=== PATIENT | female | born 1950 | race Caucasian/White ===

== ENCOUNTER 2018-03-11 12:19 | Emergency (ER) | payer BC, MEDICARE, OTHER ==
--- OUTSIDE RECORDS SUMMARY | 2018-03-11 12:46 | XMS REPORT ---
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 Dave Alberto DO Primary Care Physician Unavailable Payers Type Date Identification Numbers Payment Provider Subscriber Commercial Effective: Policy Number: BS Facets Sulma Palacios 2010 [id number] PayID: [id number] [address] [address] [place] [address] Medigap Part B Policy Number: [id number] Medicare Sulma Palacios PayID: [id number] [address] [place] [address] Commercial Policy Number: [id number] [facility] Sulma Palacios PayID: [id number] [address] [place] [address] Workers Compensation Effective: Policy Number: State Insurance Sulma Martinez 2016 [id number] Genaro Palacios Onset: 2015 Group Number: [id number] [address] [address] Group Name: [id number] [place] [id number] PayID: STATE Workers Compensation Expires: Policy Number: State Insurance Sulma Martinez 2016 [id number] Genaro Palacios Onset: 2015 Group Number: [id number] [address] [address] Group Name: [id number] [place] [id number] PayID: [id number] Problems Date Description Provider Status Onset: 04/12/2014 Chronic ischemic heart disease Rob Pedroza M.D., Active [facility] Onset: 04/27/2015 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 Active AND/OR meniscus of knee Onset: 01/18/2016 Localized, primary osteoarthritis Vida Fuentes M.D. Active Onset: 04/06/2016 Trochanteric bursitis Vida Fuentes M.D. 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 per 01/11/17 visit Daily Caffeine Consumes on average 1 cup of regular coffee per day Exercise Type/Frequency Exercises sporadically Allergies, Adverse Reactions, Alerts Date Description Reaction Status Severity Comments 05/03/2010 No Known Drug Allergy active Medications Medication Date Status Form Strength Qnty SIG Indications Ordering Provider Gabapentin 02/14/ Active Capsules 100mg 180ca 4 pills Rashid Gray ps at night Lupe, for a MD week then 5 pills at night for a week then 6 pills Carbidopa-Levod 04/25/ Active Tablets 25-100mg 270ta 1 by G20 Rashid villafana 2015 bs mouth Lupe, three MD times a day Atorvastatin 04/15/ Active Tablets 40mg 90tab 1 by Rob Stuart Calcium 2014 s mouth Yovany, every day M.D., [facility] Aspirin Adult 04/12/ Active Chewtabs 81mg Takes 1 Rob Stuart Low Strength 2013 po daily Yovany, per M.D., patient [facility] Nitroglycerin 04/12/ Active Solution 0.4mg/Spra 1unit one spray I25.9 Rob Stuart 2013 y s under Yovany, tongue if M.D., chest FACC, pain and FASNC may repeat up to 2 times every 5 minutes. call 911 if chest pain after 3 sprays Metoprolol 01/08/ Active Tablets 50mg 270ta 1 qd Rob Stuart Tartrate 2012 bs Sylvia Pedroza., FACC, FASNC Lantus / Active Solution 100Unit/ML 3vial per Unknown 0000 s sliding scale Apidra / Active Solution 100Unit/ML sliding Unknown 0000 scale Citalopram / Active Tablets 40mg 1 po qd Unknown Hydrobromide 0000 Vitamin B-12 / Active Injection injects Unknown 0000 once a month Acetaminophen / Active Tablets 500mg 1-2 tabs Unknown 0000 3x a day as needed Benadryl / Active Capsules 25mg 1 po Unknown Allergy 0000 daily Melatonin / Active Capsules 10mg 1 tab by Unknown 0000 mouth at bedtime as needed for insomnia Percocet 01/03/ Hx Tablets 5-325mg 90tab 1-2 S83.231A Vida 2015 - s tablets Alfredo, 03/25/ by mouth M.D. 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 do not combine with tylenol [place]keny 07/15/ Hx Tablets 5-325mg 30tab take 1 Taiwo 2015 - s tabs Jerod, 01/23/ every 6 M.D. 2016 hours as needed pain Diclofenac 07/11/ Hx Tablets DR 75mg 90tab 1 by Zaneb Sodium 2016 - s mouth MD Sekou 01/23/ twice a 2015 day [place]y 06/27/ Hx Tablets 5-325mg 30tab 1-2 Monika 2015 tablets Bordoni, 01/23/ by mouth LORENA 2015 every 4-6 hours as needed for pain. Potassium 04/12/ Hx Powder 2 by Robyahir Stuart Bitartrate 2013, 04/09/ every day M.D., 2013 [facility] Aspirin 04/12/ Hx Chewtabs 81mg Robyahir Stuart Children[facility] 2013, M.D., 2013 [facility] Valsartan-[place] 12/07/ Hx Tablets 320-25mg 90tab 1 by Rob Stuart chlorothiazide 2013 mouth Pedroza, 02/25/ day M.D., 2014 [facility] Valsartan/[place] 12/12/ Hx Tablets 320-25mg 90tab 1 po qd Rob Stuart chlorothiazide 2012 Yovany, 12/07/ M.D., 2013 [facility] Atorvastatin 09/29/ Hx Tablets 80mg 90tab 1 by Rob Stuart Calcium 2012 mouth Pedroza, 02/25/ day M.D., 2014 [facility] Potassium 09/29/ Hx Tablets ER 20Meq 180ta 2 tabs by Rob Stuart Chloride ER 2012 mouth Pedroza, 04/09/ day M.D., 2013 [facility] Lipitor 06/05/ Hx Tablets 40mg 90tab 1 po hs Rob Stuart 2011 Yovany, M.D., 2012 [facility] Potassium / Hx Powder 2 by Unknown Bitartrate - mouth 04/09/ every day 2013 Vitamin D / Hx Capsules [id number] 12cap 1 cap po Unknown (Ergocalciferol monthly ) 2016 Gabapentin / Hx Capsules 300mg 1 by Unknown 0000 - mouth in 02/14/ the pm 2018 Medications Administered in Office Medication Date Status Form Strength Qnty SIG Indications Ordering Provider Synvisc Or 04/06/ Administered Injection Vida Synvisc-One 2015 Alfredo, Injection 1 MG M.D. Synvisc Or 03/30/ Administered Injection Vida Synvisc-One 2015 Alfredo, Injection 1 MG M.D. Synvisc Or 03/23/ Administered Injection Vida Synvisc-One 2015 Alfredo, Injection 1 MG M.D. Inj, 12/07/ Administered Injection Ica Regadenoson, 0.1 2015 Nuclear MG Schedule Technetium TC 12/07/ Administered Injection Ica 99M Tetrofosmin, 2015 Nuclear Per Unit Dose Up Schedule To 40 Millicuries Inj, 12/06/ Administered Injection Leoncio D. Regadenoson, 0.1 2015 Brand, MG M.D. Technetium TC 12/06/ Administered Injection Leoncio D. 99M Tetrofosmin, 2015 Brand, Per Unit Dose Up M.D. To 40 Millicuries Technetium TC 12/06/ Administered Injection Sathya S. 99M Tetrofosmin, 2015 Lyle, DO Per Unit Dose Up FACC To 40 Millicuries Triamcinolone 08/25/ Administered Injection Zaneb (Kenalog) 2015 MD Sekou Vital Signs Date Vital Result Comment 02/14/2018 Height 62.5 inches 5'2.50" Weight 238.38 lb Heart Rate 63 /min BP Systolic 110 mmHg BP Diastolic 68 mmHg BMI (Body Mass Index) 42.9 kg/m2 09/11/2017 Height 62.5 inches 5'2.50" Weight 236.50 lb Heart Rate 68 /min BP Systolic 132 mmHg BP Diastolic 82 mmHg BMI (Body Mass Index) 42.6 kg/m2 02/04/2017 Height 62.5 inches 5'2.50" Weight 234.38 lb Heart Rate 80 /min BP Systolic 126 mmHg BP Diastolic 78 mmHg BMI (Body Mass Index) 42.2 kg/m2 01/11/2017 Height 62.5 inches 5'2.50" Weight 241.00 lb Heart Rate 64 /min BP Systolic Sitting 166 mmHg LA Regular Cuff BP Diastolic Sitting 100 mmHg LA Regular Cuff BP Systolic Standing 158 mmHg LA Regular Cuff BP Diastolic Standing 88 mmHg LA Regular Cuff Respiratory Rate 16 /min Pain Level 0 O2 % BldC Oximetry 98 % BMI (Body Mass Index) 43.4 kg/m2 08/06/2016 Height 62.5 inches 5'2.50" Weight 241.00 lb Heart Rate 78 /min BP Systolic Sitting 122 mmHg BP Diastolic Sitting 88 mmHg BMI (Body Mass Index) 43.4 kg/m2 04/25/2016 Height 62.5 inches 5'2.50" Weight 246.00 lb Heart Rate 76 /min BP Systolic Sitting 128 mmHg BP Diastolic Sitting 80 mmHg BMI (Body Mass Index) 44.3 kg/m2 04/06/2016 Height 62.5 inches 5'2.50" Weight 245.00 lb Respiratory Rate 16 /min Pain Level 3 BMI (Body Mass Index) 44.1 kg/m2 03/30/2016 Height 62.5 inches 5'2.50" Weight 245.00 lb Respiratory Rate 16 /min Pain Level 3 BMI (Body Mass Index) 44.1 kg/m2 03/23/2016 Height 62.5 inches 5'2.50" Heart Rate 76 /min Pain Level 4 02/17/2016 Height 62.5 inches 5'2.50" Weight 246.00 lb BMI (Body Mass Index) 44.3 kg/m2 01/18/2016 Height 62.5 inches 5'2.50" Weight 246.00 lb Body Temperature 97.3 F BMI (Body Mass Index) 44.3 kg/m2 01/04/2016 Height 62.5 inches 5'2.50" Weight 246.00 lb Heart Rate 65 /min BP Systolic 157 mmHg BP Diastolic 80 mmHg BMI (Body Mass Index) 44.3 kg/m2 12/30/2015 Height 62.5 inches 5'2.50" Weight 246.00 lb Heart Rate 60 /min BP Systolic Sitting 136 mmHg LA large cuff BP Diastolic Sitting 88 mmHg LA large cuff BP Systolic Standing 130 mmHg LA BP Diastolic Standing 80 mmHg LA Respiratory Rate 14 /min BMI (Body Mass Index) 44.3 kg/m2 Ejection Fraction 50-55% 12/15/15 11/25/2015 Weight 242.00 lb Heart Rate 72 /min BP Systolic Sitting 148 mmHg LA reg cuff BP Diastolic Sitting 92 mmHg LA reg cuff BP Systolic Standing 146 mmHg BP Diastolic Standing 90 mmHg Respiratory Rate 16 /min Ejection Fraction 60% 05/22/14 10/24/2015 Height 62 inches 5'2" Weight 220.00 lb Heart Rate 88 /min BP Systolic 138 mmHg BP Diastolic 90 mmHg BMI (Body Mass Index) 40.2 kg/m2 10/07/2015 Height 62 inches 5'2" Heart Rate 88 /min BP Systolic Sitting 130 mmHg BP Diastolic Sitting 96 mmHg 08/26/2015 Height 62 inches 5'2" Weight 235.00 lb Pain Level 5 BMI (Body Mass Index) 43.0 kg/m2 07/08/2015 Height 62 inches 5'2" Weight 235.00 lb Heart Rate 60 /min BP Systolic Sitting 130 mmHg BP Diastolic Sitting 84 mmHg Pain Level 5 goes higher at times.. BMI (Body Mass Index) 43.0 kg/m2 06/24/2015 Height 62 inches 5'2" Weight 235.00 lb Heart Rate 72 /min BP Systolic Sitting 140 mmHg BP Diastolic Sitting 96 mmHg Pain Level 7 BMI (Body Mass Index) 43.0 kg/m2 04/27/2015 Height 62 inches 5'2" Weight 240.00 lb w/o shoes Heart Rate 62 /min reg BP Systolic Sitting 126 mmHg Rue, lg cuff BP Diastolic Sitting 78 mmHg Rue, lg cuff BP Systolic Standing 124 mmHg Rue BP Diastolic Standing 72 mmHg Rue Respiratory Rate 18 /min BMI (Body Mass Index) 43.9 kg/m2 Ejection Fraction 60% as of 05/22/14 echo 04/12/2014 Height 62 inches 5'2" Weight 231.00 lb with shoes Heart Rate 66 /min BP Systolic Sitting 120 mmHg Ra lg cuff BP Diastolic Sitting 60 mmHg Ra lg cuff BP Systolic Standing 120 mmHg Ra lg cuff BP Diastolic Standing 66 mmHg Ra lg cuff Respiratory Rate 16 /min BMI (Body Mass Index) 42.2 kg/m2 Results Test Date Test Result H/L Range Note Laboratory test finding 04/28/2016 TSH (Thyroid Stim 0.81 mcIU/mL 0.34- 5.60 1 Horm) Vitamin B12 74 pg/mL Low 180-914 2 Folic Acid (Folate) > 20.00 ng/mL >3.99 3 Laboratory test finding 01/05/2016 Point of Care Glucose 100 mg/dL 74- 106 4 Laboratory test finding 01/05/2016 Point of Care Glucose 101 mg/dL 74- 106 5 Laboratory test finding 03/25/2013 Magnesium 1.4 mg/dL Low 1.7-2.6 6 Basic Metabolic Panel 03/25/2013 Sodium 139 mmol/L 133-145 6 Potassium 3.6 mmol/L 3.5-5.0 6 Chloride 103 mmol/L 101-111 6 Co2 Carbon Dioxide 28.0 mmol/L 22-32 6 Anion Gap 8.0 mmol/L 2-11 6 Glucose 267 mg/dL High 70-100 6 Blood Urea Nitrogen 16 mg/dL 6-24 6 Creatinine 1.00 mg/dL 0.50-1.40 6 BUN/Creatinine Ratio 16.0 8-20 6 Calcium 9.2 mg/dL 8.1-9.9 6 Egfr Non- 56.0 >60 6 Egfr 72.0 >60 6, 7 1 Copy Result to: PAR[facility]BIO ([id number]) 2 Normal Range 180 to 914 Indeterminate Range 145 to 180 Deficient Range <145 3 Copy Result to: [facility] ([id number]) 4 Printer'S Assistant: [id number] MAXWELL CARLITA 5 Printer'S Assistant: [id number] KIM MURILLO 6 Triage attached to old triage from January regarding these labs. KN 7 Because ethnic data is not always readily available, this report includes an eGFR for both -Americans and non- Americans. The National Kidney Disease Education Program (NKDEP) does not endorse the use of the MDRD equation for patients that are not between the ages of 18 and 70, are , have extremes of body size, muscle mass, or nutritional status, or are non- or non-. According to the National Kidney Foundation, irrespective of diagnosis, the stage of the disease is based on the level of kidney function: Stage Description GFR(mL/min/1.73 m(2)) 1 Kidney damage with normal or decreased GFR 90 2 Kidney damage with mild decrease in GFR 60-89 3 Moderate decrease in GFR 30-59 4 Severe decrease in GFR 15-29 5 Kidney failure <15 (or dialysis) Procedures Date CPT Code Description Status 01/11/2017 18086 EKG Tracing & Interpretation Completed 12/14/2016 65015 ECHO Transthoracic, Real-Time 2D With Doppler And Color Completed Flow 07/31/2016 82880 Nerve Conduction 05-06 Studies Completed 07/31/2016 99250 Needle Electromyography Complete, Five Or More Muscles Completed Studied 04/06/2016 Inject/Drain Joint/Bursa Major W/O US Completed 03/30/2016 Inject/Drain Joint/Bursa Major W/O US Completed 03/23/2016 Inject/Drain Joint/Bursa Major W/O US Completed 01/05/2016 69613 Arthroscopy,Knee,Meniscectomy Medial Or Lateral Completed 01/05/2016 34762 Arthroscopy,Knee,Meniscectomy Medial Or Lateral Completed 01/05/2016 53816 Arthroscopy,Knee,Meniscectomy Medial Or Lateral Completed 01/05/2016 62073 Arthroscopy,Knee,Meniscectomy Medial Or Lateral Completed 12/15/2015 34955 ECHO Transthoracic, Real-Time 2D With Doppler And Color Completed Flow 12/08/2015 45649 Myocardial Perfusion Imaging Tomographic (Spect) Completed Multiple Studies 12/07/2015 58671 Stress Test Completed 12/07/2015 34950 Myocardial Perfusion Imaging Tomographic (Spect) Completed Multiple Studies 08/26/2015 40563 Inject/Drain Joint/Bursa Major W/O US Completed 08/26/2015 58354 Inject/Drain Joint/Bursa Major W/O US Completed 04/27/2015 78758 EKG Tracing & Interpretation Completed 04/18/2015 36956 Carotid Doppler,Bilateral Completed 03/22/2014 43133 ECHO Transthoracic, Real-Time 2D With Doppler And Color Completed Flow 03/16/2014 45880 Carotid Doppler,Bilateral Completed 05/31/2010 02512 Rad Exam; Wrist Limited, 2 Views Completed 05/19/2010 29416 Rad Exam; Wrist, Comp, Min 3 Views Completed 05/19/2010 74667 Rad Exam; Wrist Limited, 2 Views Completed 05/03/2010 66068 Short Arm Cast Application Completed 09/26/2006 73447 EKG, Interpretation Only Completed 09/26/2006 08537 EKG, Interpretation Only Completed 09/26/2006 57108 Left Heart Catheterization Completed 09/26/2006 80198 Coronary Angiography Completed 09/26/2006 86332 Coronary Angiography Completed 09/26/2006 76502 S/I/R Inj Proc Vent And Or Atrial Completed 09/26/2006 33563 Selective Coronary Angioplasty Completed 09/26/2006 18476 Selective Coronary Angioplasty Completed 09/24/2006 29065 Color Flow Doppler/Interp & Reprt Completed 09/24/2006 15357 Color Flow Doppler/Interp & Reprt Completed 09/24/2006 36200 Pulse Wave/Continuous-Interp.RPT Completed 09/24/2006 47245 Echocardiogram Completed 09/24/2006 00017 Echocardiogram Completed Encounters Type Date Location Provider CPT E/M Dx Office Visit 09/11/2017 1:45p [facility] [place] [address] G20 G47.00 Office Visit 02/04/2017 1:45p [facility] [address] G20 E11.42 Office Visit 01/11/2017 2:00p [facility] Rob Stuart 87168 I25.10 AT Gradyjose m Pedroza M.D., [facility] Office Visit 08/06/2016 4:00p [facility] Rashid Andrade 59258 G20 E11.42 D51.9 Office Visit 04/25/2016 3:00p [facility] [address] E11.42 R25.1 R26.9 Office Visit 12/30/2015 1:45p [facility] Rob Pedroza [address] [facility] AT [place] Fél[place], [facility] Office Visit 11/25/2015 10:45a [facility] Rob Pedroza [address] [facility] AT [place], [facility] Office Visit 10/24/2015 2:00p [facility] Vida Fuentes 15899 S83.231A Wendy Heard M25.561 M25.461 M17.11 Office Visit 10/07/2015 3:00p [facility] [address] S83.231A [facility] Office Visit 08/26/2015 2:30p [facility] [place] [address] [facility] AT [place] S83.231A S83.231A Office Visit 07/08/2015 2:00p [facility] [place] [address] [facility] AT [place] M54.16 M54.5 S63.502A S83.231D S83.231A Office Visit 06/24/2015 8:00a [facility] [place] [address] [facility] AT [place] M54.16 M54.5 S63.502A Office Visit 04/27/2015 1:30p [facility] Rob Pedroza, [address] [facility] Félix, [facility], FASNC Office Visit 04/12/2014 10:30a [facility] Rob Stuart Yovany, [address]9734 414.9 Marin Heard, FAC, FASNC Office Visit 12/12/2012 2:45p [facility] Rob Narciso Pedroza, 68150 414.9 Marin Heard, FACMaren, FASNC Office Visit 05/31/2010 9:30a [facility] M.D. 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 [address] [facility] Plan of Care Future Appointment(s):04/16/2018 9:30 am - Rashid Andrade MD at [facility] Ayrdhj0802/21/2018 2:30 pm - Rob Pedroza M.D., BALJIT, STEPHANIENJ at [facility] AT Zphdtkqd65/07/2018 - Rashid Andrade MDG47.00 Insomnia, unspecifiedComments:Discussed that her walking problems on exam appear to be chiefly due to her neuropathy that is likely from her diabetes - had low b12 but is getting shots. Will send to pt for hopefully useful tips howto cope.Her insomnia is a main complaint and this seems due to her leg paina nd restless and will increae the gabapentin to see if that helps. Wrote to increase gabapentin stepwise and she will call for problems such as drowsinessParkinsons stable and will continue sinemet as is for nowD51.9 Vitamin B12 deficiency anemia, [id number] Parkinson's ghnapkvA09.81 Restless legs iaugthajD76.42 Type 2 diabetes mellitus with diabetic polyneuropathyNew Therapy:Physical Therapy
[2018-03-11 13:10] VITALS: BP 122/97
--- NOTE | 2018-03-11 13:33 | UC ---
Lower Extremity/Ankle HPI - HPI Summary HPI Summary: bilateral leg/ thigh pain x 1 month s/p fall 1 month ago , pain has been getting worse since difficulty walking has been seen multiple times , was diagnosed with diabetic neuropathy not improving with gabapentin or otc pain meds - History of Current Complaint Chief Complaint: UCLowerExtremity Stated Complaint: BILATERAL LEG PAIN Time Seen by Provider: 03/11/18 13:17 Hx Obtained From: Patient, Family/Fraud Examiner Onset/Duration: Gradual Onset, Lasting Weeks - 4 Severity Initially: Moderate Severity Currently: Moderate Pain Intensity: 5 Aggravating Factor(s): Standing, Ambulation Alleviating Factor(s): Nothing Able to Bear Weight: Yes - with the use of walker - Allergies/Home Medications Allergies/Adverse Reactions: Allergies Allergy/AdvReac Type Severity Reaction Status Date / Time No Known Allergies Allergy Verified 03/11/18 13:10 Home Medications: Home Medications Metoprolol Succinate XL TAB* [Toprol XL TAB*] 25 mg PO DAILY 03/11/18 [History Confirmed 03/11/18] PMH/Surg Hx/FS Hx/Imm Hx - Additional Past Medical History Additional PMH: parkinsons Endocrine History: Diabetes Cardiovascular History: Cardiac Disease, Hypertension - Surgical History Surgical History: Yes Surgery Procedure, Year, and Place: GALLBLADDER; CARDIAC STENTS TAXUS EXPRESS UP TO 700G/CM OK FOR UP TO 3T PT WILL BRING CARD TO SCAN INTO COMPUTER; LEFT BREAST TERMINAL DUCT EXCISION @ [facility] [place]; RT KNEE SCOPE FOR MENISCUS REPAIR - Family History Known Family History: Positive: None - Social History Alcohol Use: None Substance Use Type: None Smoking Status (MU): Never Smoked Tobacco Have You Smoked in the Last Year: No Review of Systems Constitutional: Negative Skin: Negative Eyes: Negative ENT: Negative Respiratory: Negative Is Patient Immunocompromised?: No All Other Systems Reviewed And Are Negative: Yes Physical Exam Triage Information Reviewed: Yes Appearance: Pain Distress, Obese Vital Signs: Initial Vital Signs Temp 98 F 03/11/18 12:53 Pulse 72 03/11/18 12:53 Resp 16 03/11/18 12:53 BP 122/97 03/11/18 12:53 Pulse Ox 100 03/11/18 12:53 Vital Signs Reviewed: Yes Eyes: Positive: Conjunctiva Clear ENT: Positive: Normal ENT inspection, Hearing grossly normal, Pharynx normal Neck exam: Normal Neck: Positive: Supple, Nontender, No Lymphadenopathy Respiratory: Positive: Chest non-tender, Lungs clear, Normal breath sounds Cardiovascular: Positive: RRR, No Murmur, Pulses Normal Musculoskeletal: Positive: ROM Intact, No Edema, Other: - lower ext: diffuse tenderness of bilateral thighs no swelling , no erythema, Skin Exam: Normal Lower Extremity Course/Dx - Differential Dx/Diagnosis Provider Diagnoses: bilateral thigh pain Discharge - Sign-Out/Discharge Documenting (check all that apply): Patient Departure All imaging exams completed and their final reports reviewed: No Studies - Discharge Plan Condition: Stable Disposition: HOME Prescriptions: Tramadol HCl [Ultram] 50 mg PO Q8H PRN #30 tablet MDD 3 tabs PRN Reason: Pain Patient Education Materials: Peripheral Neuropathy (ED), Leg Pain (ED) Forms: *Work Release Referrals: Joanne Suggs MD [Primary Care Provider] - 7 Days - Billing Disposition and Condition Condition: STABLE Disposition: Home
== END 2018-03-11 13:48 | disposition home or self-care (01) ==
LOC: UCCORT 12:19
DX: M79.652 Pain in left thigh (principal); M79.651 Pain in right thigh; I10 Essential (primary) hypertension
CPT/HCPCS: 99212; G0463

== ENCOUNTER 2018-04-03 09:00 | Inpatient (IN) | payer BC, MEDICARE, OTHER ==
[2018-04-03] MEDS ORDERED: traMADol TAB* 50 MG PO ONE (09:25)
[2018-04-03] MEDS ORDERED: Ondansetron ODT TAB* 4 MG SL ONE (09:26)
--- OUTSIDE RECORDS SUMMARY | 2018-04-03 09:36 | XMS REPORT ---
:1950 External Reference #:[id number] Author Organization [employer] Address [address] [place] [phone] Phone [phone] Care Team Providers Name Role Phone Dave Alberto DO Care Team Information Internal Communications Manager Unavailable Dave Alberto DO Primary Care Physician Unavailable Payers Type Date Identification Numbers Payment Provider Subscriber Commercial Effective: Policy Number: BS Facets Sulma Palacios 2010 [id number] PayID: [id number] [address] [address] [place] [address] Medigap Part B Policy Number: [id number] Medicare Sulma Palacios PayID: [id number] [address] [place] [address] Commercial Policy Number: [id number] [facility] Sulma Palacios PayID: [id number] [address] [place] [address] Workers Compensation Effective: Policy Number: State Insurance Sulam Martinez [id number] Genaro Palacios Onset: 2015 Group Number: [id number] [address] [address] Group Name: [id number] [place] [id number] PayID: STATE Workers Compensation Expires: Policy Number: State Insurance Sulma Martinez [id number] Genaro Palacios Onset: 2015 Group Number: [id number] [address] [address] Group Name: [id number] [place] [id number] [place]ID: [id number] Problems Date Description Provider Status Onset: 04/12/2014 Chronic ischemic heart disease Rob Perdoza M.D., Active [facility] Onset: 04/27/2015 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., Active coronary artery w/o ang pctrs [facility] Onset: 10/24/2015 Current tear of medial cartilage [...] Cobalamin deficiency Rashid Andrade MD Active Onset: 03/31/2018 Abnormal gait Rashid Andrade MD Active Onset: 02/14/2018 Insomnia Rashid Andrade MD Active Social History Type Date Description Comments Marital Status Occupation Currently Working 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 MD Lupe Carbidopa-Levod 04/25/ Active Tablets 25-100mg 270ta 1 by G20 Rashid opa 2015 bs mouth Lupe three MD times a day Atorvastatin 04/15/ Active Tablets 40mg 30tab 1 by Rob Stuart Calcium 2014 s mouth Yovany, every day M.DCiro, [facility] Aspirin Adult 04/12/ Active Chewtabs 81mg Takes 1 Rob Stuart Low Strength 2013 po daily Pedroza, per M.D., patient [facility] Nitroglycerin 04/12/ Active Solution 0.4mg/Spra 1unit one [...] Unknown 0000 3x a day as needed Melatonin / Active Capsules 10mg 1 tab by Unknown 0000 mouth at bedtime as needed for insomnia Percocet 01/03/ Hx Tablets 5-325mg 90tab 1-2 S83.231A Vida 2015 - s tablets Alfredo, 03/25/ by mouth M.D. 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 Aspirin 01/03/ Hx Tablets 325mg 20tab one by [id number] Frank 2015 - s mouth Bordoni, 01/23/ twice a [employer] 2015 day for 10 days to prevent blood clots Percocet 10/06/ Hx Tablets 5-325mg 30tab take 1 S83.231A Levy 2016 - s tabs as MD Sekou 04/25/ needed 2015 for pain every day. do not combine with tylenol [place] 07/15/ Hx Tablets 5-325mg 30tab take 1 Taiwo 2015 - s tabs Jerod, 01/23/ every 6 M.D. 2016 hours as needed pain Diclofenac 07/11/ Hx Tablets DR 75mg 90tab 1 by Levy Coy 2015 - s mouth MD Sekou 08/16/ twice a 2015 day [place] 06/27/ Hx Tablets 5-325mg 30tab 1-2 Monika 2015 - s tablets Bordoni, 01/23/ by mouth [employer] 2015 every 4-6 hours as needed for pain. Potassium 04/12/ Hx Powder 2 by Rob Narciso Bitartrate 2013 mouth Pedroza, 04/09/ every day M.D., 2013 [facility] Aspirin 04/12/ Hx Chewtabs 81mg Rob Stuart Childrens 2013, M.D., 2013 [facility] Valsartan-[place] 12/07/ Hx Tablets 320-25mg 90tab 1 by Robyahir Stuart chlorothiazide 2013 mouth Pedroza, 02/25/ day M.D., 2014 [facility] Valsartan/[place] 12/12/ Hx Tablets 320-25mg 90tab 1 po qd Rob Stuart chlorothiazide 2012 Yovany, 12/07/ M.D., 2013 [facility] Atorvastatin 09/29/ Hx Tablets 80mg 90tab 1 by Rob Stuart Calcium 2012 mouth Pedroza, 02/25/ every day M.D., 2014 [facility] Potassium 09/29/ Hx Tablets ER 20Meq 180ta 2 tabs by Rob Stuart Chloride ER 2012 mouth Pedroza, 04/09/ day M.D., 2013 [facility] Lipitor 06/05/ Hx Tablets 40mg 90tab 1 po hs Rob Stuart 2011 Yovany, M.D., 2012 [facility] Potassium / Hx Powder 2 by Unknown Bitartrate 0000 - mouth 04/09/ every day 2013 Vitamin D / Hx Capsules [id number] 12cap 1 cap po Unknown (Ergocalciferol 0000 - s monthly ) 2016 Benadryl / Hx Capsules 25mg 1 po Unknown Allergy 0000 - daily 2016 Gabapentin / Hx Capsules 300mg 1 [...] Injection Sathya S. 99M Tetrofosmin, 2015 Lyle, Per Unit Dose Up FACC To 40 Millicuries Triamcinolone 08/25/ Administered Injection Zaneb (Kenalog) 2015 MD Sekou Vital Signs Date Vital Result Comment 03/31/2018 Height 62.5 inches 5'2.50" Weight 231.00 lb Heart Rate 88 /min BP Systolic Sitting 130 mmHg BP Diastolic Sitting 88 mmHg BMI (Body Mass Index) 41.6 kg/m2 02/14/2018 Height 62.5 inches 5'2.50" Weight 238.38 [...] 7 1 Copy Result to: [facility] ([id number]) 2 Normal Range 180 to 914 Indeterminate Range 145 to 180 Deficient Range <145 3 Copy Result to: [facility]BIO ([id number]) 4 Geothermal Operating Engineer: [id number] HANS ZAZUETA 5 Geothermal Operating Engineer: [id number] KIM MURILLO 6 Triage attached to old [...] Procedures Date CPT Code Description Status 01/11/2017 78617 EKG Tracing & Interpretation Completed 12/14/2016 84195 ECHO Transthoracic, Real-Time 2D With Doppler And Color Completed Flow 07/31/2016 25423 Nerve Conduction 05-06 Studies Completed 07/31/2016 12225 Needle Electromyography Complete, Five Or More Muscles Completed Studied 04/06/2016 84917 Inject/Drain Joint/Bursa Major W/O US Completed 03/30/201696181 Inject/Drain Joint/Bursa Major W/O US Completed 03/23/201629336 Inject/Drain Joint/Bursa Major W/O US Completed 01/05/2016 11877 Arthroscopy,Knee,Meniscectomy Medial Or Lateral Completed 01/05/2016 44826 Arthroscopy,Knee,Meniscectomy Medial Or Lateral Completed 01/05/2016 44787 Arthroscopy,Knee,Meniscectomy Medial Or Lateral Completed 01/05/2016 81955 Arthroscopy,Knee,Meniscectomy Medial Or Lateral Completed 12/15/2015 81937 ECHO Transthoracic, Real-Time 2D With Doppler And Color Completed Flow 12/08/2015 35252 Myocardial Perfusion Imaging Tomographic (Spect) Completed Multiple Studies 12/07/2015 31746 Stress Test Completed 12/07/2015 33874 Myocardial Perfusion Imaging Tomographic (Spect) Completed Multiple Studies 08/26/201520808 Inject/Drain Joint/Bursa Major W/O US Completed 08/26/201530611 Inject/Drain Joint/Bursa Major W/O US Completed 04/27/2015 71877 EKG Tracing & Interpretation Completed 04/18/2015 10856 Carotid Doppler,Bilateral Completed 03/22/2014 87564 ECHO Transthoracic, Real-Time 2D With Doppler And Color Completed Flow 03/16/2014 00260 Carotid Doppler,Bilateral Completed 05/31/2010 20402 Rad Exam; Wrist Limited, 2 Views Completed 05/19/2010 14289 Rad Exam; Wrist, Comp, Min 3 Views Completed 05/19/2010 91108 Rad Exam; Wrist Limited, 2 Views Completed 05/03/2010 25712 Short Arm Cast Application Completed 09/26/2006 49375 EKG, Interpretation Only Completed 09/26/2006 29555 EKG, Interpretation Only Completed 09/26/2006 69082 Left Heart Catheterization Completed 09/26/2006 90449 Coronary Angiography Completed 09/26/2006 77036 Coronary Angiography Completed 09/26/2006 01086 S/I/R Inj Proc Vent And Or Atrial Completed 09/26/2006 64143 Selective Coronary Angioplasty Completed 09/26/2006 61136 Selective Coronary Angioplasty Completed 09/24/2006 28830 Color Flow Doppler/Interp & Reprt Completed 09/24/2006 14755 Color Flow Doppler/Interp & Reprt Completed 09/24/2006 76621 Pulse Wave/Continuous-Interp.RPT Completed 09/24/2006 14963 Echocardiogram Completed 09/24/2006 01651 Echocardiogram Completed Encounters Type Date Location Provider CPT E/M Dx Office Visit 02/14/2018 [facility] [address] G47.00 11:00a D51.9 G20 G25.81 E11.42 Office Visit 09/11/2017 1:45p [facility] [address] G20 G47.00 Office Visit 02/04/2017 1:45p [facility] [address] G20 E11.42 Office Visit 01/11/2017 2:00p [facility] Rob Stuart 12841 I25.10 AT Grady Pedroza M.D., [facility] Office Visit 08/06/2016 4:00p [facility] Rashid Andrade 69886 G20 MD E11.42 D51.9 Office Visit 04/25/2016 3:00p [facility] [address] E11.42 R25.1 R26.9 Office Visit 12/30/2015 1:45p [facility] Rob Pedroza 16947 I25.10 [facility] [place] [facility] Office Visit 11/25/2015 10:45a [facility] Rob Pedroza, 08971 I25.10 [facility] AT [place] Félix, [facility] Office Visit 10/24/2015 2:00p [facility] [place] 32083 S83.231A Wendy Heard M25.561 M25.461 M17.11 Office Visit 10/07/2015 3:00p [facility] [address] S83.231A [facility] AT [place] Office Visit 08/26/2015 2:30p [facility] [address] S83.231A [facility] AT [place] S83.231A S83.231A Office Visit 07/08/2015 2:00p [facility] [address] S83.231A [facility] AT [place] M54.16 M54.5 S63.502A S83.231D S83.231A Office Visit 06/24/2015 8:00a [facility] [address] S80.01xA [facility] AT [place] M54.16 M54.5 S63.502A Office Visit 04/27/2015 1:30p [facility] Rob Stuart Pedroza, 24484 I25.10 Marin Heard, FAC, FASHI Office Visit 04/12/2014 10:30a [facility] Rob Stuart Pedroza, 34694 414.9 Marin Heard, FAC, FASHI Office Visit 12/12/2012 2:45p [facility] Rob Narciso Pedroza, 69337 414.9 Marin Heard, [facility] Office Visit 05/31/2010 9:30a [facility] [place]gs M.D. 98716 813.42 [facility] Office Visit 05/19/2010 8:30a [facility] M.D. 12302 813.42 [facility] Office Visit 05/03/2010 1:30p [facility] M.D. 79303 813.42 [facility] Plan of Care Future Appointment(s):04/01/2018 2:15 pm - Rob Pedroza M.D., [facility] at [facility]03/31/2018 - Rashid Andrade MDG20 Parkinson's cktcbulV01.42 Type 2 diabetes mellitus with diabetic jaqgmziukboszuM61.89 Other abnormalities of gait and mobilityNew Xrays:MRI Lumbar Spine W/ONew Orders:EMG w /Nerve Conduct Study, LowerComments:Her major problem now is probably neuropathy but given worsening will check lumbar mri to make sure does not have lumbar stenosis and will recheck emg given changes. Needs to continue working with pt and get more effective strategy regarding what cane or walker to use. Needs to wear more practical shoes.Follow up:5 to 6 weeks
--- NOTE | 2018-04-03 10:00 | RAD ---
Indication: Fall, head injury. CT of the cervical spine was obtained in the axial plane. Sagittal and coronal reconstructed images were obtained. The skull base demonstrates no evidence of fracture. The C1 ring is intact. Degenerative changes of the atlantoaxial joint is noted. At C2-C3 there is no disc protrusion. No central foraminal stenosis is noted. At C3-C4 spondylitic ridge is noted. No focal protrusion is noted. No central foraminal stenosis is noted. At C4-C5 there is no evidence of fracture. Spondylitic ridge is noted. No central or foraminal stenosis is noted. At C5-C6, C6-C7 and C7-T1 no fracture is identified. IMPRESSION: No fracture of the cervical spine is noted. Degenerative disc disease at C3-C4 and C4-C5 is noted.
--- NOTE | 2018-04-03 10:01 | RAD ---
Indication: Fall, head injury. CT of the brain performed without IV contrast. Ventricular structures are midline. No midline shift is noted. The extra-axial spaces are unremarkable. There is no evidence of intracranial mass or hemorrhage. No other high or low density lesions are identified. Mastoid air cells and paranasal sinuses are otherwise unremarkable. IMPRESSION: No intracranial mass or hemorrhage is noted.
--- NOTE | 2018-04-03 10:08 | RAD ---
INDICATION: Trauma, fall. COMPARISON: Comparison is made with a prior CT of the abdomen and pelvis from June 19, 2007. TECHNIQUE: Contiguous axial sections were obtained through the pelvis without intravenous or oral contrast. Images were reconstructed in the coronal and sagittal planes. FINDINGS: PELVIC BONES: The bones are in normal alignment. No fracture is seen. There is mild to moderate bilateral osteoarthritic change in the hips. BOWEL: The visualized portion of the small bowel and colon appear nondistended. LYMPH NODES: No significant enlarged pelvic or inguinal lymph nodes are seen. PERITONEUM: No free intraperitoneal air or fluid is seen. IMPRESSION: NO EVIDENCE FOR FRACTURE.
--- NOTE | 2018-04-03 10:13 | RAD ---
HISTORY: fall back pain COMPARISONS: None TECHNIQUE: Multiple contiguous axial CT scans were obtained of the thoracic and lumbar spine without intravenous contrast, with coronal and sagittal multiplanar reformations. FINDINGS: SPINAL CANAL: Evaluation of the central canal is limited on CT technique; however, there is no obvious canalicular mass or epidural hemorrhage. ALIGNMENT: The alignment is normal. VERTEBRAL BODIES: There is diffuse osteopenia. There is ossification of the anterior syndesmophytes. There is a nondisplaced fracture through the anterior syndesmophytes at T7-T8 extending through the anterior column of T8 along the superior endplate. There is no appreciable extension to the middle or posterior columns. This is best seen on sagittal images 2122. There is chronic appearing fracture of the right L3 transverse process. JOINTS: There is diffuse facet osteoarthritis and mild diffuse costovertebral osteoarthritis. MUSCULATURE: Unremarkable INTERVERTEBRAL DISCS: There is diffuse loss of intervertebral disc height throughout the spine. AXIAL IMAGES: On axial images, there is severe narrowing of central canal at L3-L4 at L4-L5 secondary to broad-based disc bulge and ligamentous and facet hypertrophy. There is moderate neuroforaminal narrowing at L3-L4, L4-L5, and L5-S1 SOFT TISSUES: The visualized soft tissues of the chest and abdomen are unremarkable. OTHER: None IMPRESSION: 1. OSSIFICATION OF THE ANTERIOR SYNDESMOPHYTES SUGGESTIVE OF ANKYLOSING SPONDYLITIS. 2. THERE IS A NONDISPLACED FRACTURE THROUGH THE ANTERIOR SYNDESMOPHYTES AT T7-T8 WITH EXTENSION THROUGH THE ANTERIOR COLUMN OF T8 ALONG THE SUPERIOR ENDPLATE. THERE IS NO APPRECIABLE EXTENSION INTO THE MIDDLE OR POSTERIOR COLUMNS. 3. DIFFUSE OSTEOPENIA. 4. CHRONIC APPEARING FRACTURE OF THE RIGHT L3 TRANSVERSE PROCESS. 5. DEGENERATIVE DISC DISEASE AND OSTEOARTHRITIS. 6. THERE IS SEVERE NARROWING OF CENTRAL CANAL AT L3-L4 AND L4-L5. 7. THERE IS MULTILEVEL NEURAL FORAMINAL NARROWING DESCRIBED ABOVE. PRELIMINARY FINDINGS WERE DISCUSSED WITH DR. DOE IN THE EMERGENCY DEPARTMENT AT APPROXIMATELY 10:08 AM ON APRIL 03, 2018 .
--- NOTE | 2018-04-03 10:44 | ED ---
Back Pain - HPI Summary HPI Summary: A 67 y/o female presents to the ED c/o back pain since this morning when she fell. She has a walker because of her Parkinsons. She would not be allowed at her work unless someone assisted her inside. The patient hit a bump and flipped over her handlebars hitting her head and back. The pain is in her thoracic and lumbar region. She denies abd pain, neck pain or syncope. She also c/o LEIGH. She has a Hx of a ruptured disc and kidney stones. She denies being on blood thinners. - History of Current Complaint Chief Complaint: EDBackInjuryPain Stated Complaint: FELL HEAD LAC Time Seen by Provider: 04/03/18 09:03 Hx Obtained From: Patient Onset/Duration: Sudden Onset, Lasting Hours, Still Present Onset/Duration: Started Hours Ago Timing: Constant Severity Currently: Moderate Pain Intensity: 7 Pain Scale Used: 0-10 Numeric - Allergies/Home Medications Allergies/Adverse Reactions: Allergies Allergy/AdvReac Type Severity Reaction Status Date / Time No Known Allergies Allergy Verified 03/11/18 13:10 Home Medications: Home Medications Acetaminophen/Diphenhydramine [Tylenol Pm Ex-Strength Caplet] 1 tab PO BEDTIME 04/03/18 [History Confirmed 04/03/18] Atorvastatin* [Lipitor*] 40 mg PO DAILY 04/03/18 [History Confirmed 04/03/18] Carbidopa/Levodop 25/100 MG(*) [Sinemet 25/100 TAB(*)] 1 tab PO TID 04/03/18 [ History Confirmed 04/03/18] Citalopram TAB* [CeleXA TAB*] 40 mg PO DAILY 04/03/18 [History Confirmed ] Cyanocobalamin INJ * [Vitamin B12 INJ *] 1,000 mcg IM Q30D 04/03/18 [History Confirmed 04/03/18] Gabapentin CAP(*) [Neurontin 300 CAP(*)] 300 mg PO TID 04/03/18 [History Confirmed 04/03/18] Insulin Glulisine [Apidra Solostar] 0.1 - 0.2 ml INJ TID 04/03/18 [History Confirmed 04/03/18] Melatonin (NF) 3 mg PO BEDTIME PRN 04/03/18 [History Confirmed 04/03/18] Metoprolol Succinate XL TAB* [Toprol XL TAB*] 50 mg PO DAILY 04/03/18 [History Confirmed 04/03/18] hydrOXYzine HCL TAB* [Atarax 10 MG TAB*] 10 - 20 mg PO BEDTIME PRN 04/03/18 [ History Confirmed 04/03/18] traMADol TAB* [Ultram*] 50 mg PO BID PRN 04/03/18 [History Confirmed 04/03/18] PMH/Surg Hx/FS Hx/Imm Hx Endocrine/Hematology History: Reports: Hx Diabetes - type 2, uses insulin Denies: Hx Thyroid Disease Cardiovascular History: Reports: Hx Coronary Artery Disease, Hx Hypertension, Other Cardiovascular Problems/Disorders - 2006 & 2007 3 STENTS, [facility] YAN[facility]. DEEDEE'T 12/30/15 Denies: Hx Pacemaker/ICD Respiratory History: Reports: Hx Pulmonary Edema - 2006 Denies: Hx Asthma, Hx Chronic Obstructive Pulmonary Disease (COPD) GI History: Denies: Hx Ulcer History: Denies: Hx Dialysis, Hx Renal Disease Musculoskeletal History: Reports: Hx Arthritis - MANY JOINTS Sensory History: Reports: Hx Cataracts - BILATERAL, Hx Contacts or Glasses - GLASSES Denies: Hx Hearing Aid Opthamlomology History: Reports: Hx Cataracts - BILATERAL, Hx Contacts or Glasses - GLASSES Neurological History: Reports: Hx Migraine - hX of, none in recent years, Other Neuro Impairments/Disorders - occassional tremors, rt side, thinks r/t diabetic Psychiatric History: Reports: Hx Anxiety - on daily meds, Hx Depression Denies: Hx Panic Disorder - Surgical History Surgery Procedure, Year, and Place: GALLBLADDER; CARDIAC STENTS x2, LEFT BREAST TERMINAL [place] [facility] [place]; RT KNEE SCOPE FOR MENISCUS REPAIR. TAXUS EXPRESS UP TO 700G/CM OK FOR UP TO 3T PT WILL BRING CARD TO SCAN INTO COMPUTER; Hx Anesthesia Reactions: No Infectious Disease History: No Infectious Disease History: Denies: Hx Hepatitis, Hx Human Immunodeficiency Virus (HIV), History Other Infectious Disease, Traveled Outside the [place] in Last 30 Days - Family History Known Family History: Negative: Cardiac Disease, Hypertension, Diabetes - Social History Alcohol Use: None Substance Use Type: Reports: None Smoking Status (MU): Never Smoked Tobacco Have You Smoked in the Last Year: No Review of Systems Negative: Fever Negative: Abdominal Pain Positive: Myalgia - Back pain Positive: Headache. Negative: Syncope All Other Systems Reviewed And Are Negative: Yes Physical Exam - Summary Physical Exam Summary: GENERAL: Patient is a well-developed and nourished female who is lying comfortable in the stretcher. Patient is not in any acute respiratory distress. HEAD AND FACE: Normocephalic EYES: PERRLA, EOMI x 2. EARS: Hearing grossly intact. MOUTH: Oropharynx within normal limits. NECK: Supple, trachea is midline, no adenopathy, no JVD, no carotid bruit. CHEST: Symmetric, no tenderness at palpation LUNGS: Clear to auscultation bilaterally. No wheezing or crackles. CVS: Regular rate and rhythm, S1 and S2 present, no murmurs or gallops appreciated. ABDOMEN: Bowel sounds are normal. No abdominal abnormal pulsations. EXTREMITIES: TTP in T-spine, L-spine and right lateral pelvis bone, no edema, no cyanosis or clubbing. NEURO: Alert and oriented x 3. No acute neurological deficits. Speech is normal and follows commands. SKIN: Dry and warm Triage Information Reviewed: Yes Vital Signs On Initial Exam: Initial Vitals Temp Pulse Resp BP Pulse Ox 97.7 F 68 22 170/64 96 04/03/18 09:03 04/03/18 09:03 04/03/18 09:03 04/03/18 09:03 04/03/18 09:03 Vital Signs Reviewed: Yes Diagnostics - Vital Signs Vital Signs Temp Pulse Resp BP Pulse Ox 04/03/18 09:03 97.7 F 68 22 170/64 96 - Laboratory Lab Results: Lab Results 04/03/18 Range/Units 09:13 POC Glucose (mg/dL) 131 H (70-100) mg/dL Result Diagrams: 04/04/18 04:56 04/04/18 04:56 Lab Statement: Any lab studies that have been ordered have been reviewed, and results considered in the medical decision making process. - CT Brain CT Interpretation Completed By: Radiologist Summary of CT Findings: No intracranial mass or hemorrhage is noted. This report has been reviewed by the ED physician. Pelvis CT Interpretation Completed By: Radiologist Summary of CT Findings: No evidence of fracture. This report has been reviewed by the ED physician. Thoracic spine CT Interpretation Completed By: Radiologist - 1. OSSIFICATION OF THE ANTERIOR SYNDESMOPHYTES SUGGESTIVE OF ANKYLOSING SPONDYLITIS. 2. THERE IS A NONDISPLACED FRACTURE THROUGH THE ANTERIOR SYNDESMOPHYTES AT T7-T8 WITH EXTENSION THROUGH THE ANTERIOR COLUMN OF T8 ALONG THE SUPERIOR ENDPLATE. THERE IS NO APPRECIABLE EXTENSION INTO THE MIDDLE OR POSTERIOR COLUMNS. 3. DIFFUSE OSTEOPENIA. 4. CHRONIC APPEARING FRACTURE OF THE RIGHT L3 TRANSVERSE PROCESS. 5. DEGENERATIVE DISC DISEASE AND OSTEOARTHRITIS. 6. THERE IS SEVERE NARROWING OF CENTRAL CANAL AT L3-L4 AND L4-L5. 7. THERE IS MULTILEVEL NEURAL FORAMINAL NARROWING DESCRIBED ABOVE. This report has been reviewed by the ED physician. Lumbar spine CT Interpretation Completed By: Radiologist - 1. OSSIFICATION OF THE ANTERIOR SYNDESMOPHYTES SUGGESTIVE OF ANKYLOSING SPONDYLITIS. 2. THERE IS A NONDISPLACED FRACTURE THROUGH THE ANTERIOR SYNDESMOPHYTES AT T7-T8 WITH EXTENSION THROUGH THE ANTERIOR COLUMN OF T8 ALONG THE SUPERIOR ENDPLATE. THERE IS NO APPRECIABLE EXTENSION INTO THE MIDDLE OR POSTERIOR COLUMNS. 3. DIFFUSE OSTEOPENIA. 4. CHRONIC APPEARING FRACTURE OF THE RIGHT L3 TRANSVERSE PROCESS. 5. DEGENERATIVE DISC DISEASE AND OSTEOARTHRITIS. 6. THERE IS SEVERE NARROWING OF CENTRAL CANAL AT L3-L4 AND L4-L5. 7. THERE IS MULTILEVEL NEURAL FORAMINAL NARROWING DESCRIBED ABOVE. This report has been reviewed by the ED physician. Cervical spine CT Interpretation Completed By: Radiologist - IMPRESSION: No fracture of the cervical spine is noted. Degenerative disc disease at C3-C4 and C4-C5 is noted. This report has been reviewed by the ED physician. - Additional Comments Diagnostic Additional Comments: Thoracic spine MRI: No bone marrow edema is noted. Defect in the anterior syndesmophyte at T7-T8 consistent with the previously identified fracture on CT scan. No evidence of vertebral body edema is noted. No epidural hematoma is noted. This report has been reviewed by the ED physician. cervical spine MRI: No fracture of the cervical spine is noted. This report has been reviewed by the ED physician. Re-Evaluation - Re-Evaluation First Eval Re-Evaluation Time: 10:50 Change: Unchanged Comment: Received additional Hx from pt Back Pain Course/Dx - Course Course Of Treatment: A 67 y/o female presents to the ED c/o head and back pain since this morning when she fell and landed on the sidewalk. CT scan of the head , C-T-L spine were obtained and showed fracture in T7-T8. I consulted neurosuregery who came and saw patient at bedside and recommended MRI of the C- T spine. MRI spine showed similar findings to CT scan. Patient was once again seen at the bedside by NS and recommended admission for pain control and TLSO back brace. Case discussed with hospitalits. - Diagnoses Provider Diagnoses: Thoracic spine fracture Discharge - Sign-Out/Discharge Documenting (check all that apply): Patient Departure - Admit - Discharge Plan Condition: Stable Disposition: ADMITTED TO [facility] - Billing Disposition and Condition Condition: STABLE Disposition: Admitted to [facility] - Attestation Statements Document Initiated by Scribe: Yes Documenting Scribe: Aleksandr Munson Provider For Whom Scribe is Documenting (Include Credential): Jessie Caldera MD Scribe Attestation: IAleksandr, scribed for Jessie Caldera MD on 04/04/18 at 1449. Scribe Documentation Reviewed: Yes Provider Attestation: The documentation as recorded by the scribeAleksandr accurately reflects the service I personally performed and the decisions made by , Raj Caldera MD Consult Consult: At 1052 spoke to GAVI Keith, for Dr. Grace, neurosurgery. is in surgery. She will pull images and have review. At 1058 spoke with Inna, is finishing surgery, will review images, keep patient NPO. At 1230 Dr. Grace at bedside, recommends MRI and putting the patient in a [place] J collar. At 14:49 Dr. Andrade, hospitalist, will admit pt for observation because MRI cannot be scheduled until 20:00. Pt taken to MRI due to unexpected cancellation, will not be admitted at this time. At [address] Grace, waiting for radiologist to take 2nd look for tiny L-spine fracture before deciding dispo. Will call back. At [address] Grace, recommends admit for observation for one day At [address] Lin, hospitalist, will admit patient
[2018-04-03 11:03] LABS: ABS Basophils 0 10^3/ul (0-0.2); ABS Eosinophils 0.1 10^3/ul (0-0.6); ABS Lymphocytes 0.9 10^3/ul (1.0-4.8); ABS Monocytes 0.3 10^3/ul (0-0.8); ABS Neutrophils 2.6 10^3/ul (1.5-7.7); ABS Nucleated RBC 0 10^3/ul; Eosinophil % 3.8 % (0-6); Hematocrit 34 % (35-47); Hemoglobin 11.2 g/dl (12.0-16.0); Lymphocyte % 22.5 % (25-47); Mean Corpuscular HGB Conc 33 g/dl (31-36); Mean Corpuscular Hemoglobin 26 pg (27-31); Mean Corpuscular Volume 78 fL (80-97); Mean Platelet Volume 8.1 um3 (7.4-10.4); Nucleated Red Blood Cells % 0; Platelet Count 120 10^3/ul (150-450); Red Blood Count 4.33 10^6/ul (4.00-5.40); Red Cell Distribution Width 17 % (10.5-15); White Blood Count 3.9 10^3/ul (3.5-10.8)
[2018-04-03 11:08] LABS: INR 1.06 (0.77-1.02)
[2018-04-03] MEDS ORDERED: Dextrose 50% Syringe 50 ML* 25 GM/50 ML SYRINGE IV PUSH ONE (11:13)
[2018-04-03 11:19] LABS: EGFR Non-African American 51.6 (>60)
--- NOTE | 2018-04-03 16:28 | RAD ---
Indication: Tremor, back pain after fall Image sequences: Sagittal T1, T2, STIR, axial T2 and gradient echo images of the cervical spine were obtained. The vertebral bodies appear normal in height. Normal bone marrow signal is noted. No evidence of fracture is noted. At C2-C3, C3-C4 and C4-C5 disc protrusion is noted. No central or foraminal stenosis is noted. At C5-C6 spondylitic ridge flattens the thecal sac. Small central disc protrusion indents the thecal sac. No foraminal stenosis is noted. At C6-C7 spondylitic ridge flattens the thecal sac. Broad-based protrusion is noted indenting the sac. No foraminal stenosis is noted. At C7-T1 the disc space is normal. IMPRESSION: No fracture of the cervical spine is noted. Degenerative disc disease at C5-C6 and C6-C7. At C6-C7 broad-based protrusion flattens the thecal sac with left uncovertebral joint hypertrophy and left foraminal stenosis.
--- NOTE | 2018-04-03 16:34 | RAD ---
Indication: Back pain. Evaluate for fracture. Patient with ankylosing spondylitis. Sagittal T1, T2, STIR, axial T2-weighted images of the thoracic spine were obtained. The vertebral bodies appear normal in height. Normal bone marrow signal is noted. Incidental hemangioma is noted at T10. No evidence of bone marrow edema is noted. Schmorl's node superior endplate of T8 is noted. The previously described fracture at T7-T8 syndesmophytes is barely visible on the current study. No evidence of epidural hematoma is noted. No evidence of extension into the spinal Canal is noted. No other areas of edema is noted. IMPRESSION: No bone marrow edema is noted. Defect in the anterior syndesmophyte at T7-T8 consistent with the previously identified fracture on CT scan. No evidence of vertebral body edema is noted. No epidural hematoma is noted.
[2018-04-03] MEDS ORDERED: Morphine VIAL* 10 MG/ML 1 ML VIAL IV ONE (17:13)
[2018-04-03] MEDS ORDERED: Morphine INJ* 4 MG/ML 1 ML SYRINGE (NEW SYRINGE VERSION) IV ONE (17:30)
[2018-04-03] MEDS ORDERED: Al Hydrox/Mg Hydrox/Simet LIQ* 30 ML UDC PO PRN (19:38)
[2018-04-03] MEDS ORDERED: Acetaminophen TAB* 325 MG PO PRN (19:38)
[2018-04-03] MEDS ORDERED: Albuterol 2.5 MG/3 ML NEB.SOL* (0.083%) INH PRN (19:38)
[2018-04-03] MEDS ORDERED: Ondansetron INJ* 2 MG/ML VIAL IV PRN (19:38)
[2018-04-03] MEDS ORDERED: hydrOXYzine HCL TAB* 10 MG PO PRN (19:43)
[2018-04-03] MEDS ORDERED: Dextrose 50% Syringe 50 ML* 25 GM/50 ML SYRINGE IV PUSH PRN (19:45)
[2018-04-03] MEDS: Enoxaparin(*) 40 MG/0.4 ML SYR SUBCUT SCH (22:27)
[2018-04-03] MEDS: Carbidopa/Levodop 25/100 MG TAB(*) PO SCH (22:27)
[2018-04-03] MEDS: Gabapentin CAP(*) 300 MG PO SCH (22:27)
[2018-04-03] MEDS: Morphine INJ* 4 MG/ML 1 ML SYRINGE (NEW SYRINGE VERSION) IV PRN (22:35)
--- NOTE | 2018-04-03 22:36 | HP ---
HISTORY AND PHYSICAL: DATE OF ADMISSION: 04/03/18 CHIEF COMPLAINT: Low back pain after a fall. SUBJECTIVE: This is a 67-year-old female, came in to the emergency room complaining of back pain after a fall this morning while she was trying to get to work. She does have underlying history of Parkinson's disease. She was using a walker. She has a bump and fell backward into her back. She has been having some back pain since her fall, getting worse throughout the day. Finally , came in to the ER. She underwent MRI of the cervical and thoracic spine and the official report did show thoracic spine compression fracture at the level of T7-T8 without any evidence of epidural hematoma. Case was discussed with the Neurosurgery, Dr. Caruso, recommended brace placement. Spa Director/Finance will be seeing the patient in the morning for fitting and given her underlying Parkinson 's disease and her acuity for pain, she deems unsafe for discharge from the emergency room and she is a high risk for recurrent fall. Medicine service was called for admission for pain control and proper safe disposition. PAST MEDICAL HISTORY: 1. Diabetes. 2. Diabetic retinopathy. 3. Coronary artery disease. 4. History of PTCA x3. 5. Hyperlipidemia. 6. Hypothyroidism. 7. Hypertension. 8. Parkinson's disease. 9. Osteoarthritis and degenerative joint disease. MEDICATIONS: 1. Lipitor 40 mg daily. 2. Sinemet 25/100 one tab t.i.d. 3. Celexa 40 mg daily. 4. Gabapentin 300 mg t.i.d. 5. Atarax 10 mg at bedtime p.r.n. 6. Lantus 32 units at bedtime. 7. Humulin sliding scale before meals. 8. Toprol-XL 50 daily. 9. Tramadol 50 mg b.i.d. 10. Melatonin 3 mg at bedtime. 11. B12 1000 mcg once every 30 days. ALLERGIES: She has no known drug allergies. SOCIAL HISTORY: She is still actively working. Does not smoke or does not drink. FAMILY HISTORY: Father had history of heart disease. Mother had brain aneurysm. She had grandmother and aunt, maternal side with diabetes. REVIEW OF SYSTEMS: As per HPI. PHYSICAL EXAMINATION GENERAL: She is awake, alert, oriented, does not appear in cardiorespiratory distress. She is in profound distress upon examining her by moving her in the stretcher to examine . She could not accommodate due to her pain. VITAL SIGNS: Pulse 71, satting 95%, blood pressure 142/63. HEENT: Normocephalic, atraumatic. Extraocular muscle intact. Moist mucous membranes. No JVD. LUNGS: Clear to auscultation. Limited to anteriorly and lateral, could not assess . CARDIOVASCULAR: S1, S2. Positive systolic murmur in the right second intercostal space, blowing. ABDOMEN: Positive bowel sounds, soft, obese, nontender, nondistended. EXTREMITIES: There is nonpitting edema. She is moving her lower extremities, able to bend them with tremendous difficulty and pain from her back. NEURO: Sensation is intact. LABORATORY DATA/DIAGNOSTIC STUDIES: Her lab reveals CBC, hemoglobin 11, hematocrit 34, platelets 120. Chemistry significant for BUN 16, creatinine 1.6 , remaining unremarkable. She had a thoracic MRI, which revealed T7-T8 compression fracture. Cervical MRI shows no fracture; however, she does have DJD, C5-C6 and C6-C7. Brain CT did not reveal any acute bleeds or hemorrhage. Pelvic CT did not reveal any evidence of a fracture. Lumbar spine CT reveals diffuse osteopenia, degenerative disk disease, severe narrowing of the canal, L3-L4, L4-L5, multilevel neural foraminal stenosis. IMPRESSION: This is a 67-year-old female comes in with acute back pain, thoracic and lower lumbar. Her MRI shows compression fracture, T7-T8 with underlying parkinsonism. She is having difficulty ambulating secondary to her pain. We will admit her for pain management and PT/OT and safe disposition. 1. Compression fracture, T7-T8. We will put her on morphine for severe pain, oxycodone with Tylenol q.4 hours p.r.n., PT/OT. We will have Neurosurgery consult with us in the morning. Spa Director/Finance's for brace placement. 2. For her hyperlipidemia, continue her Lipitor 40. 3. For her Parkinson's, continue her Sinemet 25/100 one tab t.i.d. 4. For her anxiety, continue her Celexa 40 mg daily. 5. For her degenerative joint disease. Continue her gabapentin 300 t.i.d. along with oxycodone for now. We will put the tramadol on hold. 6. For diabetes, put on sliding scale and then Lantus, will decrease to 24 units. 7. For hypertension, continue her Toprol. 8. For her DVT prophylaxis, we will put on Lovenox 40 mg subcu daily. [id number]/[facility] #: [id number] MTDD
[2018-04-03] MEDS: oxyCODONE/Acetamin 5/325 MG* TAB PO PRN (22:38)
[2018-04-03] MEDS: Insulin LISPRO* 1 UNITS UNIT SUBCUT SCH (22:43)
[2018-04-04] MEDS ORDERED: Cyclobenzaprine TAB* 10 MG PO ONE (00:05)
[2018-04-04] MEDS: Morphine INJ* 4 MG/ML 1 ML SYRINGE (NEW SYRINGE VERSION) IV PRN ×2 (03:38→15:19)
[2018-04-04] MEDS: oxyCODONE/Acetamin 5/325 MG* TAB PO PRN ×3 (03:38→15:12)
[2018-04-04 05:22] LABS: ABS Basophils 0 10^3/ul (0-0.2); ABS Eosinophils 0.1 10^3/ul (0-0.6); ABS Monocytes 0.3 10^3/ul (0-0.8); ABS Neutrophils 2.2 10^3/ul (1.5-7.7); ABS Nucleated RBC 0 10^3/ul; Eosinophil % 3.4 % (0-6); Hematocrit 33 % (35-47); Hemoglobin 10.6 g/dl (12.0-16.0); Lymphocyte % 27.2 % (25-47); Mean Corpuscular HGB Conc 32 g/dl (31-36); Mean Corpuscular Hemoglobin 25 pg (27-31); Mean Corpuscular Volume 79 fL (80-97); Mean Platelet Volume 8.1 um3 (7.4-10.4); Nucleated Red Blood Cells % 0; Platelet Count 102 10^3/ul (150-450); Red Blood Count 4.19 10^6/ul (4.00-5.40); Red Cell Distribution Width 18 % (10.5-15); White Blood Count 3.6 10^3/ul (3.5-10.8)
[2018-04-04 05:44] LABS: EGFR Non-African American 55.1 (>60)
[2018-04-04] MEDS: Insulin LISPRO* 1 UNITS UNIT SUBCUT SCH ×4 (08:31→22:23)
[2018-04-04] MEDS: Gabapentin CAP(*) 300 MG PO SCH ×3 (08:33→22:10)
[2018-04-04] MEDS: Citalopram TAB* 40 MG PO SCH (08:33)
[2018-04-04] MEDS: Carbidopa/Levodop 25/100 MG TAB(*) PO SCH ×3 (08:33→22:10)
[2018-04-04] MEDS: Atorvastatin* 40 MG TAB PO SCH (08:33)
[2018-04-04] MEDS: Insulin GLARGINE(*) 1 UNITS UNIT SUBCUT SCH (08:34)
[2018-04-04] MEDS: Metoprolol Succinate XL TAB* 50 MG PO SCH (08:35)
[2018-04-04] MEDS ORDERED: Pneumococcal *Vac Polyvalent 0.5 ML VIAL IM ONE (09:00)
[2018-04-04] MEDS ORDERED: Magnesium Sulfate IV* 2 GM in NS 0.9% 100 ML* 100 ML IVPB ONE (09:03)
--- NOTE | 2018-04-04 09:33 | CONS ---
CONSULTATION REPORT: DATE OF CONSULT: 04/04/18 HISTORY OF PRESENT ILLNESS: This is a very pleasant 67-year-old female with history of Parkinson's with difficulty walking and frequent falls that came to the emergency room after a reported fall. The patient was reported to need a walker to walk. She fell and came to the emergency room with complaints of back pain. The patient denies loss of consciousness, denies any neck pain. She denies any weakness, numbness or tingling in the lower extremities. She was not able to ambulate after the fall. She denies any urine or GI incontinence. Perianal sensation was intact. Please see reports. Requested to see the patient because of CT scan findings consistent with ankylosed spine and T7/T8 anterior bone fracture. PAST MEDICAL HISTORY: Diabetes, diabetic retinopathy, coronary artery disease, hyperlipidemia, hypothyroidism, hypertension, Parkinson's disease, osteoarthritis. MEDICATIONS: The patient was on: 1. Lipitor. 2. Sinemet. 3. Celexa. 4. Gabapentin. 5. Atarax. 6. Lantus. 7. Humulin. 8. Toprol-XL 9. Tramadol. 10. Melatonin. 11. B12. ALLERGIES: No known drug allergies. FAMILY HISTORY: Heart disease, brain aneurysm, diabetes. SOCIAL HISTORY: Tobacco negative, alcohol negative. Recreational drug use, negative. PHYSICAL EXAM: The patient is not in acute distress. She is on bedrest. She has no tenderness to palpation in the thoracic and lumbar spine with the exception of mild pain in the paraspinal area at the lower lumbar spine. The patient has free range of motion in the cervical spine. She is awake, alert, and oriented x3. Her pupils are equal and reactive. Cranial nerves II through XII grossly intact. Motor is 4-5/5 in the lower extremities. No pronator drift. Sensory is grossly intact to light touch. Deep tendon reflexes +1 bilaterally. No clonus, no Babinski. Lindsay is negative. The patient does have resting tremor, which is consistent with her diagnosis. DIAGNOSTIC STUDIES/LAB DATA: The patient had a CT scan of the brain that did not reveal any evidence of fracture or intracranial hemorrhage. The patient had a CT scan of the cervical spine that revealed degenerative disease without evidence of fracture. The patient had a CT scan of the thoracic spine that revealed anterior osteophyte fracture between T7 and T8 with extension of the fracture at anterior vertebral body. The patient had a CT scan of the lumbar spine that revealed degenerative disk disease with possibly chronic right L3 transverse process fracture. The patient had also MRI of the cervical spine that did not reveal evidence of other injury. MRI of the thoracic spine revealed mild increased signal in the STIR images between T7 and T8 as suspected from CT scan. ASSESSMENT: This is a very pleasant 67-year-old female with history of Parkinson's disease who was reported to have sustained a fall and has a T7 plus 8 anterior caudal fracture. PLAN: The patient at this point does quite well. I will review the imaging with Dr. Krishnan. A this point we will consider treatment with the use of a brace. Recommend upright x-rays of the thoracic and lumbar spine after the brace has been obtained. If patient unable to have upright standing x-rays because of pain, recommend an MRI of the lumbar spine. Patient was kindly admitted by the hospitalist service for observation and proper disposition. Thank you for allowing us to participate in the care of this patient. Please do not hesitate to contact our office in case if you have any further questions or concerns regarding the care of this patient. [id number]/[facility] #: [id number] CAROL
[2018-04-04] MEDS ORDERED: Magnesium Sulfate 2 GM IV* 2 GM/50 ML BAG IVPB ONE (10:00)
--- NOTE | 2018-04-04 11:45 | PN ---
Subjective Date of Service: 04/04/18 Interval History: Ms. Palacios reports continued back pain today. She denies any other complaint including chest pain, SOB, nausea, or abdominal pain. She notes that she has had 5 falls since early February, all of which were related to being unsteady on her feet or feeling that her knees buckled. Objective Active Medications: Acetaminophen (Tylenol Tab*) 650 mg PO Q4H PRN Al Hydrox/Mg Hydrox/Simethicone (Maalox Plus*) 30 ml PO Q6H PRN Albuterol (Ventolin 2.5 Mg/3 Ml Neb.Zo*) 2.5 mg INH [id number] AWAKE PRN Atorvastatin Calcium (Lipitor*) 40 mg PO DAILY KAYCEE Carbidopa/Levodopa (Sinemet 25/100 Tab(*)) 1 tab PO TID KAYCEE Citalopram Hydrobromide (Celexa Tab*) 40 mg PO DAILY KAYCEE Dextrose (D50w Syringe 50 Ml*) 12.5 gm IV PUSH .FOR FS < 60 - SS PRN Enoxaparin Sodium (Lovenox(*)) 40 mg SUBCUT Q24H KAYCEE Gabapentin (Neurontin Cap(*)) 300 mg PO TID KAYCEE Hydroxyzine HCl (Atarax Tab*) 10 mg PO BEDTIME PRN Insulin Glargine (Lantus(*)) 24 units SUBCUT QAM KAYCEE Insulin Human Lispro (Humalog*) 0 units SUBCUT ACHS KAYCEE; Protocol Metoprolol Succinate (Toprol Xl Tab*) 50 mg PO DAILY KAYCEE Morphine Sulfate (Morphine Inj (Syringe)*) 2 mg IV Q4H PRN Ondansetron HCl (Zofran Inj*) 4 mg IV Q4H PRN Oxycodone/Acetaminophen (Percocet 5/325 Tab*) 2 tab PO Q4H PRN Vital Signs: Temp Pulse Resp BP Pulse Ox 96.9 F 81 18 137/60 99 04/04/18 07:38 04/04/18 07:38 04/04/18 08:33 04/04/18 07:38 04/04/18 07:38 Oxygen Devices in Use Now: None Appearance: Female lying in bed in NAD Eyes: No Scleral Icterus Ears/Nose/Mouth/Throat: Mucous Membranes Moist Neck: Trachea Midline Respiratory: Symmetrical Chest Expansion and Respiratory Effort, Clear to Auscultation Cardiovascular: NL Sounds; No Murmurs; No JVD, No Edema Abdominal: NL Sounds; No Tenderness; No Distention Extremities: No Edema Skin: No Rash or Ulcers Neurological: Alert and Oriented x 3, NL Muscle Strength and Tone Nutrition: Taking PO's Result Diagrams: 04/04/18 04:56 04/04/18 04:56 Additional Lab and Data: . Assess/Plan/Problems-Billing Assessment: Ms. Palacios is a 67 yo F with a PMH of DM and Parkinson's Disease who was admitted on 04/03/18 after a fall with a T7-T8 fracture. - Patient Problems (1) Thoracic spine fracture Comment: - T7-T8 fracture of the anterior syndesmophytes with history of ankylosing spondylitis. No extension into the anterior column of T8. - Appreciate consultation from neurosurgery, no surgical intervention indicated. Recommended brace with follow up xray of spine with brace, if unable to stand recommended MRI. - Pain meds prn. (2) Diabetes Comment: - BGs well controlled. - Continue lantus at reduced dose with lispro SSI coverage with meals. - Hold glulisine. (3) CAD (coronary artery disease) Comment: - Asymptomatic, continue metoprolol, atorvastatin. (4) Hyperlipidemia Comment: - Continue atorvastatin. (5) Parkinson disease Comment: - Continue carbidopa-levadopa. (6) Hypertension Comment: - Continue metoprolol. (7) DVT prophylaxis Comment: - Lovenox (8) DNR (do not resuscitate) Comment: Status and Disposition: OBV. Anticipate patient will need rehabilitation.
--- NOTE | 2018-04-04 20:14 | PN ---
Progress Note - Progress Note Date of Service: 04/04/18 SOAP: Subjective: []No events ON. Tolerates brace well. Ambulated to bathroom, Voids. Pain is well controlled. Objective: []VSS, Afebrile. AAOx3, SHELLI, CN II-XII grossly intact Motor 5/5 all extremities Sensory grossly intact to light touch Assessment: []67 yof fall T7-8 anterior column fracture, DISH, PD. Plan: []Monitor VS, Neurochecks Upright XT in am Discussed in extend the importance of avoiding future falls/injuries If films satisfactory, follow up in the office in 2-3 weeks with new XR of Tspine. Vincent Caruso MD
[2018-04-04] MEDS: Enoxaparin(*) 40 MG/0.4 ML SYR SUBCUT SCH (22:11)
[2018-04-05] MEDS: oxyCODONE/Acetamin 5/325 MG* TAB PO PRN ×4 (05:05→23:03)
[2018-04-05] MEDS: Insulin LISPRO* 1 UNITS UNIT SUBCUT SCH ×4 (07:59→21:10)
[2018-04-05] MEDS: Atorvastatin* 40 MG TAB PO SCH (09:09)
[2018-04-05] MEDS: Metoprolol Succinate XL TAB* 50 MG PO SCH (09:09)
[2018-04-05] MEDS: Gabapentin CAP(*) 300 MG PO SCH ×3 (09:09→21:08)
[2018-04-05] MEDS: Citalopram TAB* 40 MG PO SCH (09:10)
[2018-04-05] MEDS: Carbidopa/Levodop 25/100 MG TAB(*) PO SCH ×3 (09:10→21:09)
[2018-04-05] MEDS: Insulin GLARGINE(*) 1 UNITS UNIT SUBCUT SCH (09:10)
--- NOTE | 2018-04-05 10:23 | PN ---
Progress Note - Progress Note Date of Service: 04/05/18 SOAP: Subjective: []Doing well with brace Has anbulated Pain improved Objective: []Neuro intact Assessment: []Stable Plan: []Rarasheeday for D/C Should f/u in office with Dr. Caruso week of Apr 16
--- NOTE | 2018-04-05 12:42 | PN ---
Subjective Date of Service: 04/05/18 Interval History: Ms. Palacios reports feeling better today with less pain since being fitted with her back brace. She has been up to ambulate briefly with physical therapy but they note that she remains weak and unsafe with independent ambulation. She denies other complaint including chest pain, SOB, nausea, or abdominal pain. Objective Active Medications: Acetaminophen (Tylenol Tab*) 650 mg PO Q4H PRN Al Hydrox/Mg Hydrox/Simethicone (Maalox Plus*) 30 ml PO Q6H PRN Albuterol (Ventolin 2.5 Mg/3 Ml Neb.Zo*) 2.5 mg INH [id number] AWAKE PRN Atorvastatin Calcium (Lipitor*) 40 mg PO DAILY [facility] Carbidopa/Levodopa (Sinemet 25/100 Tab(*)) 1 tab PO TID [facility] Citalopram Hydrobromide (Celexa Tab*) 40 mg PO DAILY [facility] Dextrose (D50w Syringe 50 Ml*) 12.5 gm IV PUSH .FOR FS < 60 - SS PRN Enoxaparin Sodium (Lovenox(*)) 40 mg SUBCUT Q24H [facility] Gabapentin (Neurontin Cap(*)) 300 mg PO TID [facility] Hydroxyzine HCl (Atarax Tab*) 10 mg PO BEDTIME PRN Insulin Glargine (Lantus(*)) 24 units SUBCUT QAM [facility] Insulin Human Lispro (Humalog*) 0 units SUBCUT ACHS [facility]; Protocol Metoprolol Succinate (Toprol Xl Tab*) 50 mg PO DAILY [facility] Morphine Sulfate (Morphine Inj (Syringe)*) 2 mg IV Q4H PRN Ondansetron HCl (Zofran Inj*) 4 mg IV Q4H PRN Oxycodone/Acetaminophen (Percocet 5/325 Tab*) 2 tab PO Q4H PRN Vital Signs: Temp Pulse Resp BP Pulse Ox 98.4 F 85 16 131/50 99 04/05/18 11:31 04/05/18 11:31 04/05/18 11:43 04/05/18 11:31 04/05/18 12:08 Oxygen Devices in Use Now: None Appearance: Female sitting up on edge of bed in NAD Eyes: No Scleral Icterus Ears/Nose/Mouth/Throat: Mucous Membranes Moist Neck: Trachea Midline Respiratory: Symmetrical Chest Expansion and Respiratory Effort, Clear to Auscultation Cardiovascular: NL Sounds; No Murmurs; No JVD, No Edema Abdominal: NL Sounds; No Tenderness; No Distention Lymphatic: No Cervical Adenopathy Extremities: No Edema Skin: No Rash or Ulcers Neurological: Alert and Oriented x 3, NL Muscle Strength and Tone Nutrition: Taking PO's Result Diagrams: 04/04/18 04:56 04/04/18 04:56 Assess/Plan/Problems-Billing Assessment: Ms. Palacios is a 67 yo F with a PMH of DM and Parkinson's Disease who was admitted on 04/03/18 after a fall with a T7-T8 fracture. - Patient Problems (1) Thoracic spine fracture Comment: - T7-T8 fracture of the anterior syndesmophytes with history of ankylosing spondylitis WITH EXTENSION into the anterior column of T8. - Appreciate consultation from neurosurgery, no surgical intervention indicated. Recommended brace with follow up xray of spine with brace, if unable to stand recommended MRI. Xray pending. - Continue to mobilize with physical therapy, occupational therapy. - Pain meds prn. (2) Diabetes Comment: - BGs well controlled. - Continue lantus at reduced dose with lispro SSI coverage with meals. - Hold glulisine. (3) CAD (coronary artery disease) Comment: - Asymptomatic, continue metoprolol, atorvastatin. (4) Hyperlipidemia Comment: - Continue atorvastatin. (5) Parkinson disease Comment: - Continue carbidopa-levadopa. (6) Hypertension Comment: - Continue metoprolol. (7) DVT prophylaxis Comment: - Lovenox (8) DNR (do not resuscitate) Comment: Status and Disposition: Inpatient with need for further rehabilitation prior to discharge to independent living. May need subacute rehab.
[2018-04-05] MEDS: Cyclobenzaprine TAB* 10 MG PO PRN ×2 (15:43→23:04)
--- NOTE | 2018-04-05 16:08 | RAD ---
INDICATION: T7-T8 fracture. COMPARISON: Comparison is made with a prior CT and MRI of the dorsal spine from April 03, 2018. TECHNIQUE: AP and lateral films of the spine were obtained centered at the dorsal lumbar junction. FINDINGS: There is a mild dorsal scoliosis convex toward the right side. The vertebra are otherwise in normal alignment. There are bridging syndesmophytes throughout the visualized dorsal spine suggesting the possibility of ankylosing spondylitis. The previously noted fracture through the anterior syndesmophytes at the T7-T8 level seen on the prior CT and MRI studies is not visualized on this x-ray exam. IMPRESSION: THE PREVIOUSLY NOTED FRACTURE THROUGH THE ANTERIOR SYNDESMOPHYTES AT THE T7-T8 LEVEL ON THE PRIOR CROSS-SECTIONAL IMAGING STUDIES IS NOT VISUALIZED ON THIS X-RAY EXAM.
[2018-04-05] MEDS: Enoxaparin(*) 40 MG/0.4 ML SYR SUBCUT SCH (21:11)
[2018-04-06] MEDS: oxyCODONE/Acetamin 5/325 MG* TAB PO PRN ×3 (03:48→18:19)
[2018-04-06] MEDS: Atorvastatin* 40 MG TAB PO SCH (08:55)
[2018-04-06] MEDS: Carbidopa/Levodop 25/100 MG TAB(*) PO SCH ×3 (08:55→20:07)
[2018-04-06] MEDS: Citalopram TAB* 40 MG PO SCH (08:56)
[2018-04-06] MEDS: Gabapentin CAP(*) 300 MG PO SCH ×3 (08:56→20:07)
[2018-04-06] MEDS: Metoprolol Succinate XL TAB* 50 MG PO SCH (08:56)
[2018-04-06] MEDS: Insulin GLARGINE(*) 1 UNITS UNIT SUBCUT SCH (09:59)
[2018-04-06] MEDS: Insulin LISPRO* 1 UNITS UNIT SUBCUT SCH ×4 (09:59→21:02)
[2018-04-06] MEDS: Cyclobenzaprine TAB* 10 MG PO PRN (13:22)
--- NOTE | 2018-04-06 17:40 | PN ---
Subjective Date of Service: 04/06/18 Interval History: Patient seen this afternoon. she was sitting up at the edge of the bed having lunch. No acute events. tolerating PT and ambulating. No nausea or vomit Past Medical History: Unchanged from Admission Objective Active Medications: Acetaminophen (Tylenol Tab*) 650 mg PO Q4H PRN PRN Reason: FEVER/PAIN Al Hydrox/Mg Hydrox/Simethicone (Maalox Plus*) 30 ml PO Q6H PRN PRN Reason: INDIGESTION Albuterol (Ventolin 2.5 Mg/3 Ml Neb.Zo*) 2.5 mg INH [id number] AWAKE PRN PRN Reason: sob/wheezing Atorvastatin Calcium (Lipitor*) 40 mg PO DAILY [facility] Last Admin: 04/06/18 08:55 Dose: 40 mg Carbidopa/Levodopa (Sinemet 25/100 Tab(*)) 1 tab PO TID [facility] Last Admin: 04/06/18 12:45 Dose: 1 tab Citalopram Hydrobromide (Celexa Tab*) 40 mg PO DAILY [facility] Last Admin: 04/06/18 08:56 Dose: 40 mg Cyclobenzaprine HCl (Flexeril Tab*) 10 mg PO BID PRN PRN Reason: muscle spasms Last Admin: 04/06/18 13:22 Dose: 10 mg Dextrose (D50w Syringe 50 Ml*) 12.5 gm IV PUSH .FOR FS < 60 - SS PRN PRN Reason: FS < 60 Enoxaparin Sodium (Lovenox(*)) 40 mg SUBCUT Q24H [facility] Last Admin: 04/05/18 21:11 Dose: 40 mg Gabapentin (Neurontin Cap(*)) 300 mg PO TID [facility] Last Admin: 04/06/18 12:45 Dose: 300 mg Hydroxyzine HCl (Atarax Tab*) 10 mg PO BEDTIME PRN PRN Reason: ANXIETY/INSOMNIA Insulin Glargine (Lantus(*)) 24 units SUBCUT QAM [facility] Last Admin: 04/06/18 09:59 Dose: 24 units Insulin Human Lispro (Humalog*) 0 units SUBCUT ACHS [facility]; Protocol Last Admin: 04/06/18 16:58 Dose: 4 units Metoprolol Succinate (Toprol Xl Tab*) 50 mg PO DAILY [facility] Last Admin: 04/06/18 08:56 Dose: 50 mg Ondansetron HCl (Zofran Inj*) 4 mg IV Q4H PRN PRN Reason: NAUSEA/VOMITING Last Admin: 04/04/18 19:03 Dose: 4 mg Oxycodone/Acetaminophen (Percocet 5/325 Tab*) 1 tab PO Q4H PRN PRN Reason: PAIN Last Admin: 04/06/18 08:57 Dose: 1 tab Vital Signs - 8 hr 04/06/18 04/06/18 04/06/18 11:43 12:14 12:45 Temperature 98.1 F Pulse Rate 126 Respiratory 14 16 16 Rate Blood Pressure 124/96 (mmHg) O2 Sat by Pulse 100 Oximetry 04/06/18 04/06/18 04/06/18 13:22 15:24 16:09 Temperature 98.0 F Pulse Rate 70 Respiratory 18 16 14 Rate Blood Pressure 120/53 (mmHg) O2 Sat by Pulse 95 Oximetry Oxygen Devices in Use Now: None Appearance: Awake, alert. no acute distress Eyes: No Scleral Icterus, PERRLA Ears/Nose/Mouth/Throat: NL Teeth, Lips, Gums, Mucous Membranes Moist Neck: NL Appearance and Movements; NL JVP, Trachea Midline Respiratory: Symmetrical Chest Expansion and Respiratory Effort, Clear to Auscultation Cardiovascular: NL Sounds; No Murmurs; No JVD, RRR, No Edema Abdominal: NL Sounds; No Tenderness; No Distention Extremities: No Edema Neurological: Alert and Oriented x 3 Result Diagrams: 04/04/18 04:56 04/04/18 04:56 Additional Lab and Data: Lab Results 04/03/18 Range/Units 09:13 POC Glucose (mg/dL) 131 H (70-100) mg/dL Assess/Plan/Problems-Billing Assessment: Ms. Palacios is a 67 yo F with a PMH of DM and Parkinson's Disease who was admitted on 04/03/18 after a fall with a T7-T8 fracture. - Patient Problems (1) Thoracic spine fracture Current Visit: Yes Status: Acute Code(s): S22.009A - UNSP FRACTURE OF UNSP THORACIC VERTEBRA, INIT FOR CLOS FX SNOMED Code(s): 325166669 Comment: - T7-T8 fracture of the anterior syndesmophytes with history of ankylosing spondylitis WITH EXTENSION into the anterior column of T8. - Appreciate consultation from neurosurgery, no surgical intervention indicated. Recommended brace with follow up xray of spine with brace done, no acute changes the compression was not visualized. Ambulating. Cleared by NS for rehab discharge and follow up in office as outpatient. - Continue to mobilize with physical therapy, occupational therapy. - Pain meds prn Flexeril, percocet (2) Parkinson disease Current Visit: Yes Status: Acute Code(s): G20 - PARKINSON'S DISEASE SNOMED Code(s): 67478030 Comment: - Continue carbidopa-levadopa 25/100 tid. (3) Diabetes Current Visit: Yes Status: Acute Code(s): E11.9 - TYPE 2 DIABETES MELLITUS WITHOUT COMPLICATIONS SNOMED Code(s): 22428764 Comment: - BGs well controlled. - Continue lantus at reduced dose with lispro SSI coverage with meals. - Hold glulisine. (4) Hypertension Current Visit: Yes Status: Acute Code(s): I10 - ESSENTIAL (PRIMARY) HYPERTENSION SNOMED Code(s): 33798898 Comment: - Continue metoprolol. (5) Hyperlipidemia Current Visit: Yes Status: Acute Code(s): E78.5 - HYPERLIPIDEMIA, UNSPECIFIED SNOMED Code(s): 84296052 Comment: - Continue atorvastatin. (6) Depression Current Visit: Yes Status: Acute Code(s): F32.9 - MAJOR DEPRESSIVE DISORDER , SINGLE EPISODE, UNSPECIFIED SNOMED Code(s): 24199088 Comment: - continue celexa 40 mg daily (7) DVT prophylaxis Current Visit: Yes Status: Acute Code(s): SXI5527 - SNOMED Code(s): 140894021 Comment: - Lovenox Status and Disposition: Inpatient with need for further rehabilitation prior to discharge to independent living. May need subacute rehab.
[2018-04-06] MEDS: Enoxaparin(*) 40 MG/0.4 ML SYR SUBCUT SCH (20:11)
[2018-04-07] MEDS: oxyCODONE/Acetamin 5/325 MG* TAB PO PRN ×3 (05:36→19:52)
[2018-04-07] MEDS: Atorvastatin* 40 MG TAB PO SCH (08:05)
[2018-04-07] MEDS: Cyclobenzaprine TAB* 10 MG PO PRN (08:06)
[2018-04-07] MEDS: Carbidopa/Levodop 25/100 MG TAB(*) PO SCH ×3 (08:06→19:52)
[2018-04-07] MEDS: Citalopram TAB* 40 MG PO SCH (08:06)
[2018-04-07] MEDS: Metoprolol Succinate XL TAB* 50 MG PO SCH (08:06)
[2018-04-07] MEDS: Gabapentin CAP(*) 300 MG PO SCH ×3 (08:07→19:52)
[2018-04-07] MEDS: Insulin LISPRO* 1 UNITS UNIT SUBCUT SCH ×4 (09:37→20:33)
[2018-04-07] MEDS: Insulin GLARGINE(*) 1 UNITS UNIT SUBCUT SCH (09:38)
--- NOTE | 2018-04-07 18:46 | PN ---
Subjective Date of Service: 04/07/18 Interval History: Awake, alert. no events. doing PT. Awaiting placement to [facility] if approved by work comp. no acute issue overnight Past Medical History: Unchanged from Admission Objective Active Medications: Acetaminophen (Tylenol Tab*) 650 mg PO Q4H PRN PRN Reason: FEVER/PAIN Al Hydrox/Mg Hydrox/Simethicone (Maalox Plus*) 30 ml PO Q6H PRN PRN Reason: INDIGESTION Albuterol (Ventolin 2.5 Mg/3 Ml Neb.Zo*) 2.5 mg INH [id number] AWAKE PRN PRN Reason: sob/wheezing Atorvastatin Calcium (Lipitor*) 40 mg PO DAILY [facility] Last Admin: 04/07/18 08:05 Dose: 40 mg Carbidopa/Levodopa (Sinemet 25/100 Tab(*)) 1 tab PO TID [facility] Last Admin: 04/07/18 14:13 Dose: 1 tab Citalopram Hydrobromide (Celexa Tab*) 40 mg PO DAILY [facility] Last Admin: 04/07/18 08:06 Dose: 40 mg Cyclobenzaprine HCl (Flexeril Tab*) 10 mg PO BID PRN PRN Reason: muscle spasms Last Admin: 04/07/18 08:06 Dose: 10 mg Dextrose (D50w Syringe 50 Ml*) 12.5 gm IV PUSH .FOR FS < 60 - SS PRN PRN Reason: FS < 60 Enoxaparin Sodium (Lovenox(*)) 40 mg SUBCUT Q24H [facility] Last Admin: 04/06/18 20:11 Dose: 40 mg Gabapentin (Neurontin Cap(*)) 300 mg PO TID [facility] Last Admin: 04/07/18 14:13 Dose: 300 mg Hydroxyzine HCl (Atarax Tab*) 10 mg PO BEDTIME PRN PRN Reason: ANXIETY/INSOMNIA Insulin Glargine (Lantus(*)) 24 units SUBCUT QAM [facility] Last Admin: 04/07/18 09:38 Dose: 24 units Insulin Human Lispro (Humalog*) 0 units SUBCUT ACHS [facility]; Protocol Last Admin: 04/07/18 18:39 Dose: 6 units Metoprolol Succinate (Toprol Xl Tab*) 50 mg PO DAILY [facility] Last Admin: 04/07/18 08:06 Dose: 50 mg Ondansetron HCl (Zofran Inj*) 4 mg IV Q4H PRN PRN Reason: NAUSEA/VOMITING Last Admin: 04/04/18 19:03 Dose: 4 mg Oxycodone/Acetaminophen (Percocet 5/325 Tab*) 1 tab PO Q4H PRN PRN Reason: PAIN Last Admin: 04/07/18 14:13 Dose: 1 tab Vital Signs - 8 hr 04/07/18 04/07/18 04/07/18 11:23 14:12 14:13 Temperature 97.7 F Pulse Rate 80 Respiratory 16 18 18 Rate Blood Pressure 114/68 (mmHg) O2 Sat by Pulse 96 Oximetry 04/07/18 18:34 Temperature Pulse Rate Respiratory 18 Rate Blood Pressure (mmHg) O2 Sat by Pulse Oximetry Oxygen Devices in Use Now: None Eyes: No Scleral Icterus, PERRLA Neck: NL Appearance and Movements; NL JVP, Trachea Midline Respiratory: Symmetrical Chest Expansion and Respiratory Effort, Clear to Auscultation Cardiovascular: NL Sounds; No Murmurs; No JVD, RRR Abdominal: NL Sounds; No Tenderness; No Distention Extremities: No Edema Neurological: Alert and Oriented x 3 Result Diagrams: 04/04/18 04:56 04/04/18 04:56 Additional Lab and Data: Lab Results 04/03/18 Range/Units 09:13 POC Glucose (mg/dL) 131 H (70-100) mg/dL Assess/Plan/Problems-Billing Assessment: Ms. Palacios is a 67 yo F with a PMH of DM and Parkinson's Disease who was admitted on 04/03/18 after a fall with a T7-T8 fracture. - Patient Problems (1) Thoracic spine fracture Current Visit: Yes Status: Acute Code(s): S22.009A - UNSP FRACTURE OF UNSP THORACIC VERTEBRA, INIT FOR CLOS FX SNOMED Code(s): 803409995 Comment: - T7-T8 fracture of the anterior syndesmophytes with history of ankylosing spondylitis WITH EXTENSION into the anterior column of T8. - Appreciate consultation from neurosurgery, no surgical intervention indicated Recommended brace. Ambulating. Cleared by NS for rehab discharge and follow up in office as outpatient. - Continue to mobilize with physical therapy, occupational therapy. - Pain meds prn Flexeril, percocet - Awaiting discharge planing to PMRU (2) Parkinson disease Current Visit: Yes Status: Acute Code(s): G20 - PARKINSON'S DISEASE SNOMED Code(s): 04214978 Comment: - Continue carbidopa-levadopa 25/100 tid. (3) Diabetes Current Visit: Yes Status: Acute Code(s): E11.9 - TYPE 2 DIABETES MELLITUS WITHOUT COMPLICATIONS SNOMED Code(s): 10258164 Comment: - BGs well controlled. - Continue lantus at reduced dose with lispro SSI coverage with meals. - Hold glulisine. (4) Hypertension Current Visit: Yes Status: Acute Code(s): I10 - ESSENTIAL (PRIMARY) HYPERTENSION SNOMED Code(s): 44257126 Comment: - Continue metoprolol. (5) Hyperlipidemia Current Visit: Yes Status: Acute Code(s): E78.5 - HYPERLIPIDEMIA, UNSPECIFIED SNOMED Code(s): 32650070 Comment: - Continue atorvastatin. (6) Depression Current Visit: Yes Status: Acute Code(s): F32.9 - MAJOR DEPRESSIVE DISORDER , SINGLE EPISODE, UNSPECIFIED SNOMED Code(s): 26956300 Comment: - continue celexa 40 mg daily (7) DVT prophylaxis Current Visit: Yes Status: Acute Code(s): SAI0760 - SNOMED Code(s): 053653451 Comment: - Lovenox Status and Disposition: Inpatient with need for further rehabilitation prior to discharge to independent living. May need subacute rehab.
[2018-04-07] MEDS: Enoxaparin(*) 40 MG/0.4 ML SYR SUBCUT SCH (19:52)
[2018-04-08] MEDS: oxyCODONE/Acetamin 5/325 MG* TAB PO PRN ×3 (05:45→18:27)
[2018-04-08] MEDS: Citalopram TAB* 40 MG PO SCH (08:54)
[2018-04-08] MEDS: Gabapentin CAP(*) 300 MG PO SCH ×3 (08:54→21:12)
[2018-04-08] MEDS: Atorvastatin* 40 MG TAB PO SCH (08:54)
[2018-04-08] MEDS: Metoprolol Succinate XL TAB* 50 MG PO SCH (08:54)
[2018-04-08] MEDS: Carbidopa/Levodop 25/100 MG TAB(*) PO SCH ×3 (08:55→21:13)
[2018-04-08] MEDS: Insulin LISPRO* 1 UNITS UNIT SUBCUT SCH ×4 (09:14→21:14)
[2018-04-08] MEDS: Insulin GLARGINE(*) 1 UNITS UNIT SUBCUT SCH (09:33)
[2018-04-08] MEDS: Senna TAB PO SCH (09:33)
[2018-04-08] MEDS: Docusate CAP* 100 MG PO SCH (09:33)
[2018-04-08] MEDS: Cyclobenzaprine TAB* 10 MG PO PRN (12:12)
[2018-04-08] MEDS: Polyethylene Glycol 3350* 17 GM PACKET PO PRN (12:12)
--- NOTE | 2018-04-08 16:10 | PN ---
Subjective Date of Service: 04/08/18 Interval History: Accepted to [facility] for tomorrow no BM in 6 days. 6 falls since Feb 10. Has needed walker or cane since - not prior. Followed with Dr. Andrade who suspected neuropathy. numbness and weakness in thighs and into top of knees. Past Medical History: Unchanged from Admission Objective Active Medications: Acetaminophen (Tylenol Tab*) 650 mg PO Q4H PRN PRN Reason: FEVER/PAIN Last Admin: 04/08/18 12:13 Dose: 650 mg Al Hydrox/Mg Hydrox/Simethicone (Maalox Plus*) 30 ml PO Q6H PRN PRN Reason: INDIGESTION Albuterol (Ventolin 2.5 Mg/3 Ml Neb.Zo*) 2.5 mg INH [id number] AWAKE PRN PRN Reason: sob/wheezing Atorvastatin Calcium (Lipitor*) 40 mg PO DAILY [facility] Last Admin: 04/08/18 08:54 Dose: 40 mg Carbidopa/Levodopa (Sinemet 25/100 Tab(*)) 1 tab PO TID [facility] Last Admin: 04/08/18 13:26 Dose: 1 tab Citalopram Hydrobromide (Celexa Tab*) 40 mg PO DAILY [facility] Last Admin: 04/08/18 08:54 Dose: 40 mg Cyclobenzaprine HCl (Flexeril Tab*) 10 mg PO BID PRN PRN Reason: muscle spasms Last Admin: 04/08/18 12:12 Dose: 10 mg Dextrose (D50w Syringe 50 Ml*) 12.5 gm IV PUSH .FOR FS < 60 - SS PRN PRN Reason: FS < 60 Docusate Sodium (Colace Cap*) 100 mg PO DAILY [facility] Last Admin: 04/08/18 09:33 Dose: 100 mg Enoxaparin Sodium (Lovenox(*)) 40 mg SUBCUT Q24H [facility] Last Admin: 04/07/18 19:52 Dose: 40 mg Gabapentin (Neurontin Cap(*)) 300 mg PO TID [facility] Last Admin: 04/08/18 13:26 Dose: 300 mg Hydroxyzine HCl (Atarax Tab*) 10 mg PO BEDTIME PRN PRN Reason: ANXIETY/INSOMNIA Insulin Glargine (Lantus(*)) 24 units SUBCUT QAM [facility] Last Admin: 04/08/18 09:33 Dose: 24 units Insulin Human Lispro (Humalog*) 0 units SUBCUT ACHS [facility]; Protocol Last Admin: 04/08/18 13:25 Dose: 4 units Metoprolol Succinate (Toprol Xl Tab*) 50 mg PO DAILY [facility] Last Admin: 04/08/18 08:54 Dose: 50 mg Ondansetron HCl (Zofran Inj*) 4 mg IV Q4H PRN PRN Reason: NAUSEA/VOMITING Last Admin: 04/04/18 19:03 Dose: 4 mg Oxycodone/Acetaminophen (Percocet 5/325 Tab*) 1 tab PO Q4H PRN PRN Reason: PAIN Last Admin: 04/08/18 09:34 Dose: 1 tab Polyethylene Glycol/Electrolytes (Miralax*) 17 gm PO DAILY PRN PRN Reason: CONSTIPATION Last Admin: 04/08/18 12:12 Dose: 17 gm Senna (Senokot Tab*) 1 tab PO DAILY [facility] Last Admin: 04/08/18 09:33 Dose: 1 tab Vital Signs - 8 hr 04/08/18 04/08/18 04/08/18 08:54 11:49 12:11 Temperature 97.9 F Pulse Rate 72 Respiratory 18 16 18 Rate Blood Pressure 135/58 (mmHg) O2 Sat by Pulse 98 Oximetry 04/08/18 04/08/18 12:12 13:26 Temperature Pulse Rate Respiratory 18 18 Rate Blood Pressure (mmHg) O2 Sat by Pulse Oximetry Oxygen Devices in Use Now: None Appearance: NAD, torseo is braced Eyes: No Scleral Icterus, PERRLA Ears/Nose/Mouth/Throat: NL Teeth, Lips, Gums Neck: NL Appearance and Movements; NL JVP Respiratory: Symmetrical Chest Expansion and Respiratory Effort, Clear to Auscultation Cardiovascular: NL Sounds; No Murmurs; No JVD, RRR Abdominal: NL Sounds; No Tenderness; No Distention Extremities: No Edema Skin: No Rash or Ulcers Neurological: Alert and Oriented x 3, - - resting tremor noted Nutrition: Taking PO's Result Diagrams: 04/04/18 04:56 04/04/18 04:56 Additional Lab and Data: Laboratory Results - last 24 hr 04/08/18 04/08/18 04/08/18 09:00 12:18 16:48 POC Glucose (mg/dL) 131 H 201 H 163 H 04/08/18 21:04 POC Glucose (mg/dL) 135 H Assess/Plan/Problems-Billing Assessment: 67 yo female PMH of IDDM, Parkinson's Disease, recent increased frequency of falls admitted 04/03/[address] T-Spine with evidence of Anklyosing Spondylitis with a nondisplaced fracture of the anterior syndesmophytes at T7- T8 projecting through anterior column of T8. Severe narrowing of central canal L3-4, L4-5. NS on board - nonsurgical managment. Brace support. - Patient Problems (1) Thoracic spine fracture Current Visit: Yes Status: Acute Code(s): S22.009A - UNSP FRACTURE OF UNSP THORACIC VERTEBRA, INIT FOR CLOS FX SNOMED Code(s): 926591290 Comment: CT T-Spine with evidence of Anklyosing Spondylitis with a nondisplaced fracture of the anterior syndesmophytes at T7-T8 projecting through anterior column of T8. Severe narrowing of central canal L3-4, L4-5 - Appreciate consultation from neurosurgery, no surgical intervention indicated Recommended brace. Ambulating. Cleared by NS for rehab discharge and follow up in office as outpatient. - Continue to mobilize with physical therapy, occupational therapy. - Pain meds prn Flexeril, percocet - Planned discharge to [facility] 04/09 (2) CAD (coronary artery disease) Current Visit: Yes Status: Acute Code(s): I25.10 - ATHSCL HEART DISEASE OF [place] CORONARY ARTERY W/O ANG PCTRS SNOMED Code(s): 21595860 Comment: - Asymptomatic, continue metoprolol, atorvastatin. (3) DNR (do not resuscitate) Current Visit: Yes Status: Acute Comment: (4) DVT prophylaxis Current Visit: Yes Status: Acute Code(s): SQD9416 - SNOMED Code(s): 123177213 Comment: - Lovenox (5) Depression Current Visit: Yes Status: Acute Code(s): F32.9 - MAJOR DEPRESSIVE DISORDER , SINGLE EPISODE, UNSPECIFIED SNOMED Code(s): 34532343 Comment: - continue celexa 40 mg daily (6) Diabetes Current Visit: Yes Status: Acute Code(s): E11.9 - TYPE 2 DIABETES MELLITUS WITHOUT COMPLICATIONS SNOMED Code(s): 90297240 Comment: - BGs well controlled. - Continue lantus at reduced dose with lispro SSI coverage with meals. - Hold glulisine. (7) Hyperlipidemia Current Visit: Yes Status: Acute Code(s): E78.5 - HYPERLIPIDEMIA, UNSPECIFIED SNOMED Code(s): 60774993 Comment: - Continue atorvastatin. (8) Hypertension Current Visit: Yes Status: Acute Code(s): I10 - ESSENTIAL (PRIMARY) HYPERTENSION SNOMED Code(s): 79437317 Comment: - Continue metoprolol. (9) Parkinson disease Current Visit: Yes Status: Acute Code(s): G20 - PARKINSON'S DISEASE SNOMED Code(s): 25337538 Comment: - Continue carbidopa-levadopa 25/100 tid. Status and Disposition: Inpatient with need for further rehabilitation prior to discharge to independent living. Planned PMRU 04/09
[2018-04-08] MEDS: Enoxaparin(*) 40 MG/0.4 ML SYR SUBCUT SCH (21:13)
[2018-04-09] MEDS: oxyCODONE/Acetamin 5/325 MG* TAB PO PRN ×2 (02:31→08:54)
[2018-04-09] MEDS: Insulin LISPRO* 1 UNITS UNIT SUBCUT SCH (07:29)
[2018-04-09 07:38] VITALS: BP 135/50
[2018-04-09] MEDS ORDERED: Magnesium CITRATE* 300 ML BTL PO ONE (08:10)
[2018-04-09] MEDS: Senna TAB PO SCH (08:19)
[2018-04-09] MEDS: Polyethylene Glycol 3350* 17 GM PACKET PO PRN (08:19)
[2018-04-09] MEDS: Metoprolol Succinate XL TAB* 50 MG PO SCH (08:19)
[2018-04-09] MEDS: Atorvastatin* 40 MG TAB PO SCH (08:19)
[2018-04-09] MEDS: Insulin GLARGINE(*) 1 UNITS UNIT SUBCUT SCH (08:20)
[2018-04-09] MEDS: Docusate CAP* 100 MG PO SCH (08:20)
[2018-04-09] MEDS: Citalopram TAB* 40 MG PO SCH (08:20)
[2018-04-09] MEDS: Carbidopa/Levodop 25/100 MG TAB(*) PO SCH (08:20)
[2018-04-09] MEDS: Gabapentin CAP(*) 300 MG PO SCH (08:20)
--- NOTE | 2018-04-10 22:23 | DS ---
DISCHARGE SUMMARY: DATE OF ADMISSION: 04/03/18 DATE OF DISCHARGE: 04/09/18 ADMITTING PROVIDER: Yvon Lin MD PRIMARY CARE PHYSICIAN: Joanne Suggs MD ATTENDING PHYSICIAN ON THE DAY OF DISCHARGE: Oswald Garcia MD CONSULTING NEUROSURGEON: Dr. Caruso (was also seen for one day by Dr. Lanza) CHIEF COMPLAINT: Mechanical fall with history of frequent recent falling and resulting in low back pain. PRINCIPAL DIAGNOSES: Mechanical fall complicated by anterior syndesmophyte fracture of T7-T8 with extension through the anterior vertebral body. HISTORY OF PRESENT ILLNESS AND HOSPITAL COURSE: Sulma Palacios is a 67-year-old female with past medical history of diabetes, diabetic retinopathy, CAD, Parkinson's disease, osteoarthritis, hypertension, hypothyroidism, hyperlipidemia, and a recent falling 6 times over the last 2 months, who is now needed to use a walker. Please see H and P of Dr. Lin for full details. She hit a bump while using a walker and fell backward on her back. [place] [facility], was found to have an anterior syndesmophyte fracture at T7-T8 with extension to the anterior vertebral body. Neurosurgery was consulted and recommended TLSO brace placement. She was deemed unsafe for discharge from the emergency room again with her high risk of recurrent fall given her underlying Parkinson's disease, which seemed to be getting worse and/ or other causes such as diabetic peripheral neuropathy. She was deemed a nonsurgical candidate. She had repeat imaging. Her initial imaging included a lumbar CT spine, which showed ossification of the anterior syndesmophyte suggestive of ankylosing spondylitis, a nondisplaced fracture to the anterior syndesmophyte at T7-T8 with extension through the anterior column of T8 along the superior endplate. There is no appreciable extension into the middle or lower posterior columns. Diffuse osteopenia. Chronic appearing fracture of the right L3 transverse process. Degenerative disk disease and osteoarthritis. Severe narrowing of the central canal at L3-L4 and L4-L5. Multilevel neuroforaminal narrowing as described above. She had a thoracic spine MRI on , which showed no bone marrow edema. There was a defect with anterior syndesmophyte at T7-T8 as previously identified on CT scan. No vertebral body edema. No epidural hematoma noted. She again got a thoraco-lumbar spine x-ray on 04/05/18, the previously noted fracture through the anterior syndesmophyte at T7-T8 level on the prior cross-sectional imaging study was not visualized on the x-ray exam. The patient was recommended to follow up with Dr. Caruso in the week of 04/16/18. She should also follow up with Dr. Joanne Suggs, her PCP, and Dr. Andrade, her neurologist. DISCHARGE MEDICATIONS: Included: 1. Tylenol 650 mg p.o. q.4 hours p.r.n. 2. Atorvastatin 40 mg p.o. daily. 3. Carbidopa/levodopa 25/100 one tab p.o. t.i.d. 4. Citalopram 40 mg p.o. daily. 5. Cyanocobalamin 1000 mcg IM every month. 6. Gabapentin 300 mg p.o. t.i.d. 7. Lantus 24 units subcutaneous q.a.m. 8. Apidra SoloSTAR 0.1 to 0.2 mg injection t.i.d. 9. Melatonin 3 mg p.o. at bedtime. 10. Metoprolol succinate 50 mg p.o. daily. DISCHARGE DIET: Heart-healthy, carbohydrate consistent, unchanged. RECOMMENDATIONS: Recommended TLSO brace and avoid future falls, injuries. She physical therapy and occupational therapy and PMRU admission. She had not had a bowel movement for 6 days prior to the day of discharge. Had a bowel regimen of Colace, Senokot, and MiraLAX started on the day prior to discharge and then got mag citrate and lactulose the morning of discharge to PMRU. TIME SPENT ON DISCHARGE: 45 minutes. [id number]/[facility] #: [id number] MTDD
== END 2018-04-09 10:35 | DRG 347 ==
LOC: ED 09:00 → SSU 19:38 → OBSVTOIN 04-05 12:36
PROVIDERS: ADMIT Internal Medicine; ATTEND Internal Medicine
DX: S22.068A Other fracture of T7-T8 thoracic vertebra, initial encounter for closed fracture (principal); G20 Parkinson's disease; E78.5 Hyperlipidemia, unspecified; F41.9 Anxiety disorder, unspecified; I10 Essential (primary) hypertension; M19.90 Unspecified osteoarthritis, unspecified site; M47.816 Spondylosis without myelopathy or radiculopathy, lumbar region; E11.319 Type 2 diabetes mellitus with unspecified diabetic retinopathy without macular edema; I25.10 Atherosclerotic heart disease of native coronary artery without angina pectoris; E03.9 Hypothyroidism, unspecified; M48.061 Spinal stenosis, lumbar region without neurogenic claudication; M51.36 Other intervertebral disc degeneration, lumbar region; R29.6 Repeated falls; E11.36 Type 2 diabetes mellitus with diabetic cataract; M48.16 Ankylosing hyperostosis [Forestier], lumbar region; M45.6 Ankylosing spondylitis lumbar region; G43.909 Migraine, unspecified, not intractable, without status migrainosus; F32.9 Major depressive disorder, single episode, unspecified; E11.42 Type 2 diabetes mellitus with diabetic polyneuropathy; Z66 Do not resuscitate; W18.39XA Other fall on same level, initial encounter; Y92.9 Unspecified place or not applicable; Z95.1 Presence of aortocoronary bypass graft; Z79.4 Long term (current) use of insulin; Z82.49 Family history of ischemic heart disease and other diseases of the circulatory system; Z83.3 Family history of diabetes mellitus; Z83.49 Family history of other endocrine, nutritional and metabolic diseases; Z95.5 Presence of coronary angioplasty implant and graft; Z90.49 Acquired absence of other specified parts of digestive tract; Z91.81 History of falling; Z87.442 Personal history of urinary calculi; Z23 Encounter for immunization
CPT/HCPCS: 36415; 70450; 72080; 72125; 72128; 72131; 72141; 72146; 72192; 80048; 80053; 83735; 84100; 85025; 85610; 90732; 99284; A9270-GY; G0378; G8978-GP-CJ; G8979-GP-CI; G8987-GO-CL; G8988-GO-CI; J1650; J2270; J2405; J3475

== ENCOUNTER 2018-04-09 07:28 | Inpatient (IN) | payer OTHER ==
[2018-04-09] MEDS ORDERED: Senna TAB PO PRN (12:18)
[2018-04-09] MEDS ORDERED: Magnesium Hydroxide LIQ* 30 ML UDC PO PRN (12:18)
[2018-04-09] MEDS ORDERED: Dextrose 50% Syringe 50 ML* 25 GM/50 ML SYRINGE IV PUSH PRN (12:38)
[2018-04-09] MEDS: Gabapentin CAP(*) 300 MG PO SCH ×2 (14:39→20:57)
[2018-04-09] MEDS: Carbidopa/Levodop 25/100 MG TAB(*) PO SCH ×2 (14:39→20:58)
[2018-04-09] MEDS: oxyCODONE/Acetamin 5/325 MG* TAB PO PRN ×2 (17:28→21:17)
[2018-04-09] MEDS: Insulin LISPRO* 1 UNITS UNIT SUBCUT SCH ×2 (17:29→20:58)
[2018-04-09] MEDS: Docusate CAP* 100 MG PO SCH (20:49)
[2018-04-09] MEDS: Enoxaparin(*) 40 MG/0.4 ML SYR SUBCUT SCH (20:58)
--- NOTE | 2018-04-09 23:30 | HP ---
ADMISSION HISTORY AND PHYSICAL: DATE OF ADMISSION: 04/09/18 REASON FOR ADMISSION: T7 and T8 fractures; Parkinson's disease. HISTORY OF PRESENT ILLNESS: Sulma Palacios is a 67-year-old female. The patient told me she had been out of work for 2 weeks after she had fallen. Her doctor had kept her out work for 2 weeks. She had returned to work on . The patient has a 4-wheeled walker with a seat on it. She was being pushed by a coworker in the walker sitting down when the walker hit a bump and the patient fell forward out of the walker. She had immediate pain in her low back. She was able to go to the ER later that day. She had an MRI of her cervical and thoracic spine that showed fractures of T7 and T8. Dr. Caruso , the neurosurgeon, had seen the patient and did not feel that the surgery was necessary but did feel that she needed a TLSO to go home with. The patient was felt to be unsafe to go home given her Parkinson's and the new fracture. She was admitted to the hospital. While in the hospital, her diabetes meds were adjusted. She was given Lovenox for DVT prophylaxis. The patient was felt to have physical therapy and occupational therapy needs. The patient is now being admitted for inpatient rehab so that she might return to independent living. PAST MEDICAL HISTORY: Significant for diabetes mellitus. She normally takes Lantus insulin with sliding scale at meal times. In addition to her Parkinson's , she may have diabetic peripheral neuropathy as well. The patient has a history of coronary artery disease. She has had a history of angioplasties as well with three stents. She has a history of hypothyroidism. MEDICATIONS: Current medications include: 1. Sinemet for her Parkinson's disease. 2. She takes Celexa. 3. Lovenox. 4. Lipitor. 5. Gabapentin. 6. Lantus insulin. 7. Lispro sliding scale. 8. Toprol-XL. 9. Percocet for pain control. ALLERGIES: No known drug allergies. SOCIAL HISTORY: She is a nonsmoker, nondrinker. Lives in a 2-story house, but stays on 1 floor. She lives alone. She works at [employer]. REVIEW OF SYSTEMS: The patient reports last bowel movement was today, was quite constipated and had not had a bowel movement in 5 days prior. PHYSICAL EXAMINATION VITAL SIGNS: The patient's temperature is 98.2, blood pressure is 134/51, pulse 75, respirations 21. HEENT: Her extraocular movements were intact. Tongue is midline. NECK: Supple. LUNGS: Sound clear to auscultation bilaterally. HEART: Heart sounds were regular. S1, S2 were audible. ABDOMEN: Soft and nontender. She has a TLSO over her thorax. EXTREMITIES: She has a resting tremor in both arms. She has slightly increased tone. Her peripheral pulses were intact. NEUROLOGIC: The patient was alert, oriented. Muscle strength was about 4+/5 in both lower extremities, 5/5 in the upper extremities. Her gait, she ambulates without assistive devices. ASSESSMENT: 1. Parkinson's disease. 2. New fractures at T7 and T8, in TLSO. 3. Probable ankylosing spondylitis. PLAN: We are going to integrate her into a comprehensive and therapeutic rehab program with the following goals: 1. Physical Therapy will work with the patient. They are going to work on functional transfer training, ambulation training with the walker. 2. Occupational Therapy will see the patient and work on her activities of daily living including toileting and toilet transfers. 3. Lovenox for DVT prophylaxis. 4. Adequate analgesia. 5. For her coronary artery disease, we will continue her beta-marlene as well as Lipitor. 6. For her diabetes, we will continue her Lantus insulin with sliding scale. 7. Her bowels will be regulated. 8. For Parkinson's disease, we will continue Sinemet 3 times a day. 9. phlebotomy services representative will be closely involved to make sure that any services and equipment that the patient requires are in place prior to discharge. 10. Home with appropriate services. ESTIMATED LENGTH OF STAY: 10 days. [id number]/[facility] #: [id number] CAROL
[2018-04-10] MEDS: Docusate CAP* 100 MG PO SCH ×2 (08:32→21:35)
[2018-04-10] MEDS: Gabapentin CAP(*) 300 MG PO SCH ×3 (08:33→21:36)
[2018-04-10] MEDS: Metoprolol Succinate XL TAB* 50 MG PO SCH (08:33)
[2018-04-10] MEDS: Citalopram TAB* 40 MG PO SCH (08:33)
[2018-04-10] MEDS: Carbidopa/Levodop 25/100 MG TAB(*) PO SCH ×3 (08:33→21:36)
[2018-04-10] MEDS: Insulin LISPRO* 1 UNITS UNIT SUBCUT SCH ×4 (08:34→21:39)
[2018-04-10] MEDS ORDERED: Insulin GLARGINE(*) 1 UNITS UNIT SUBCUT SCH (09:00)
[2018-04-10] MEDS: oxyCODONE/Acetamin 5/325 MG* TAB PO PRN ×2 (09:21→20:00)
[2018-04-10] MEDS: Atorvastatin* 40 MG TAB PO SCH (17:04)
--- NOTE | 2018-04-10 18:42 | PN ---
Progress Note Date of Service: 04/10/18 Note: RON TOMLINSON was visited. Therapy notes read and reviewed. She was able to have a shower with OT and feels good about that. [place] therapy went ok. BS a little high, will increase Lantus (takes 30 u at home) Current Medications: Active Medications Generic Name Dose Route Start Last Admin Trade Name Freq PRN Reason Stop Dose Admin Acetaminophen 650 mg 04/09/18 12:18 Tylenol Tab* PO Q6H PRN FEVER/PAIN Atorvastatin Calcium 40 mg 04/10/18 17:00 04/10/18 17:04 Lipitor* PO 40 mg 1700 KAYCEE Administration Carbidopa/Levodopa 1 tab 04/09/18 14:00 04/10/18 14:03 Sinemet 25/100 Tab(*) PO 1 tab TID KAYCEE Administration Citalopram Hydrobromide 40 mg 04/10/18 09:00 04/10/18 08:33 Celexa Tab* PO 40 mg DAILY KAYCEE Administration Dextrose 12.5 gm 04/09/18 12:38 D50w Syringe 50 Ml* IV PUSH .FOR FS < 60 - SS PRN FS < 60 Docusate Sodium 100 mg 04/09/18 21:00 04/10/18 08:32 Colace Cap* PO Not Given BID KAYCEE Enoxaparin Sodium 40 mg 04/09/18 20:00 04/09/18 20:58 Lovenox(*) SUBCUT 40 mg Q24H KAYCEE Administration Gabapentin 300 mg 04/09/18 14:00 04/10/18 14:03 Neurontin Cap(*) PO 300 mg TID KAYCEE Administration Insulin Glargine 28 units 04/11/18 09:00 Lantus(*) SUBCUT Q24H KAYCEE Insulin Human Lispro 0 - 10 units 04/09/18 16:30 04/10/18 17:52 Humalog* SUBCUT 2 units ACHS KAYCEE Administration Protocol Magnesium Hydroxide 30 ml 04/09/18 12:18 Milk Of Magnesia Liq* PO Q6H PRN CONSTIPATION Metoprolol Succinate 50 mg 04/10/18 09:00 04/10/18 08:33 Toprol Xl Tab* PO 50 mg DAILY KAYCEE Administration Oxycodone/Acetaminophen 1 tab 04/09/18 12:31 04/10/18 09:21 Percocet 5/325 Tab* PO 1 tab Q4H PRN Administration PAIN - MODERATE TO SEVERE Senna 2 tab 04/09/18 12:18 Senokot Tab* PO BEDTIME PRN CONSTIPATION Vital Signs: Vital Signs Temp Pulse Resp BP Pulse Ox 98.4 F 68 18 130/47 100 04/10/18 15:03 04/10/18 16:18 04/10/18 16:04 04/10/18 16:18 04/10/18 15:03 Lab Results: Laboratory Results - last 24 hr 04/09/18 04/10/18 04/10/18 20:22 08:01 10:40 POC Glucose (mg/dL) 178 H 93 189 H 04/10/18 04/10/18 12:08 17:04 POC Glucose (mg/dL) 181 H 160 H Exam: HEENT: EOMI LUNGS: Clear bilaterally HEART: reg rhythm ABDOMEN: Soft, +BS EXTREMITIES: increased tone. Resting tremor in arms NEUROLOGIC: alert and oriented. Muscle strength appears 5/5 in both LEs Assessment/Plan: 1. T7 and T8 fractures: PT/OT. TLSO when OOB 2. Parkinson's Disease: Sinemet TID. PT/OT. 3. IDDM: Lantus, increase to 28 units daily. Lispro SSi 4. DPN: Gabapentin 5. DVT Prophylaxis: Lovenox S/Q 6. Advanced Directives: DNR. Has MOLST 04/10/18 18:40
[2018-04-10] MEDS: Enoxaparin(*) 40 MG/0.4 ML SYR SUBCUT SCH (20:00)
[2018-04-11] MEDS: oxyCODONE/Acetamin 5/325 MG* TAB PO PRN ×2 (00:34→22:29)
[2018-04-11 07:17] LABS: Hematocrit 32 % (35-47); Hemoglobin 10.3 g/dl (12.0-16.0); Mean Corpuscular HGB Conc 32 g/dl (31-36); Mean Corpuscular Hemoglobin 26 pg (27-31); Mean Corpuscular Volume 79 fL (80-97); Mean Platelet Volume 7.6 um3 (7.4-10.4); Platelet Count 95 10^3/ul (150-450); Red Blood Count 4.03 10^6/ul (4.00-5.40); Red Cell Distribution Width 20 % (10.5-15); White Blood Count 1.6 10^3/ul (3.5-10.8)
[2018-04-11 07:47] LABS: EGFR Non-African American 65.6 (>60)
[2018-04-11 08:58] LABS: ABS Basophils 0 10^3/ul (0-0.2); ABS Neutrophils 0.5 10^3/ul (1.5-7.7); Monocytes % 5 % (0-7)
[2018-04-11] MEDS: Insulin LISPRO* 1 UNITS UNIT SUBCUT SCH ×4 (09:09→20:19)
[2018-04-11] MEDS: Carbidopa/Levodop 25/100 MG TAB(*) PO SCH ×3 (09:10→20:12)
[2018-04-11] MEDS: Citalopram TAB* 40 MG PO SCH (09:11)
[2018-04-11] MEDS: Docusate CAP* 100 MG PO SCH ×2 (09:11→20:19)
[2018-04-11] MEDS: Gabapentin CAP(*) 300 MG PO SCH ×3 (09:11→20:13)
[2018-04-11] MEDS: Insulin GLARGINE(*) 1 UNITS UNIT SUBCUT SCH (09:12)
[2018-04-11] MEDS: Metoprolol Succinate XL TAB* 50 MG PO SCH (09:12)
--- NOTE | 2018-04-11 10:19 | PN ---
Progress Note Date of Service: 04/11/18 Note: RON TOMLINSON was visited. Nursing and therapy notes read and reviewed. No chest pain, shortness of breath or abdominal pain. She gets some right anterior thigh numbness when the brace is on tight that resolves when loosened or taken off. Current Medications: Active Medications Generic Name Dose Route Start Last Admin Trade Name Freq PRN Reason Stop Dose Admin Acetaminophen 650 mg 04/09/18 12:18 Tylenol Tab* PO Q6H PRN FEVER/PAIN Atorvastatin Calcium 40 mg 04/10/18 17:00 04/10/18 17:04 Lipitor* PO 40 mg 1700 KAYCEE Administration Carbidopa/Levodopa 1 tab 04/09/18 14:00 04/11/18 09:10 Sinemet 25/100 Tab(*) PO 1 tab TID KAYCEE Administration Citalopram Hydrobromide 40 mg 04/10/18 09:00 04/11/18 09:11 Celexa Tab* PO 40 mg DAILY KAYCEE Administration Dextrose 12.5 gm 04/09/18 12:38 D50w Syringe 50 Ml* IV PUSH .FOR FS < 60 - SS PRN FS < 60 Docusate Sodium 100 mg 04/09/18 21:00 04/11/18 09:11 Colace Cap* PO Not Given BID KAYCEE Enoxaparin Sodium 40 mg 04/09/18 20:00 04/10/18 20:00 Lovenox(*) SUBCUT 40 mg Q24H KAYCEE Administration Gabapentin 300 mg 04/09/18 14:00 04/11/18 09:11 Neurontin Cap(*) PO 300 mg TID KAYCEE Administration Insulin Glargine 28 units 04/11/18 09:00 04/11/18 09:12 Lantus(*) SUBCUT 28 units Q24H KAYCEE Administration Insulin Human Lispro 0 - 10 units 04/09/18 16:30 04/11/18 09:09 Humalog* SUBCUT Not Given ACHS [facility] Protocol Magnesium Hydroxide 30 ml 04/09/18 12:18 Milk Of Magnesia Liq* PO Q6H PRN CONSTIPATION Metoprolol Succinate 50 mg 04/10/18 09:00 04/11/18 09:12 Toprol Xl Tab* PO 50 mg DAILY KAYCEE Administration Oxycodone/Acetaminophen 1 tab 04/09/18 12:31 04/11/18 00:34 Percocet 5/325 Tab* PO 1 tab Q4H PRN Administration PAIN - MODERATE TO SEVERE Potassium Chloride 20 meq 04/11/18 10:00 Klor Con Er Tab* PO BID KAYCEE Senna 2 tab 04/09/18 12:18 Senokot Tab* PO BEDTIME PRN CONSTIPATION Vital Signs: Vital Signs Temp Pulse Resp BP Pulse Ox 97.6 F 62 16 149/68 99 04/11/18 05:40 04/11/18 05:40 04/11/18 09:11 04/11/18 05:40 04/11/18 05:40 Lab Results: Laboratory Results - last 24 hr 04/10/18 04/10/18 04/10/18 10:40 12:08 17:04 WBC RBC Hgb Hct MCV MCH MCHC RDW Plt Count MPV Neut % (Auto) Lymph % (Auto) [place] % (Auto) Eos % (Auto) Baso % (Auto) Absolute Neuts (auto) Absolute Lymphs (auto) Absolute Monos (auto) Absolute Eos (auto) Absolute Basos (auto) Absolute Nucleated RBC Neutrophils % Lymphocytes % Monocytes % Eosinophils % Basophils % Nucleated RBC % Abs Neuts (Manual) Abs Lymphs (Manual) Abs Monocytes (Manual) Absolute Eos (Manual) Abs Basophils (Manual) Normal RBC Morphology Hypochromasia Sodium Potassium Chloride Carbon Dioxide Anion Gap BUN Creatinine Est GFR ( Amer) Est GFR (Non-Af Amer) BUN/Creatinine Ratio Glucose POC Glucose (mg/dL) 189 H 181 H 160 H Calcium Total Bilirubin AST ALT Alkaline Phosphatase Total Protein Albumin Globulin Albumin/Globulin Ratio 04/10/18 04/11/18 04/11/18 20:42 06:58 06:58 WBC 1.6 L RBC 4.03 Hgb 10.3 L Hct 32 L MCV 79 L MCH 26 L MCHC 32 RDW 20 H Plt Count 95 L MPV 7.6 Neut % (Auto) Not Reportable Lymph % (Auto) Not Reportable [place] % (Auto) Not Reportable Eos % (Auto) Not Reportable Baso % (Auto) Not Reportable Absolute Neuts (auto) 0.5 L* Absolute Lymphs (auto) Not Reportable Absolute Monos (auto) Not Reportable Absolute Eos (auto) Not Reportable Absolute Basos (auto) Not Reportable Absolute Nucleated RBC Not Reportable Neutrophils % 33 L Lymphocytes % 52 H Monocytes % 5 Eosinophils % 9 H Basophils % 1 Nucleated RBC % Not Reportable Abs Neuts (Manual) 0.5 L* Abs Lymphs (Manual) 0.8 L Abs Monocytes (Manual) 0.1 Absolute Eos (Manual) 0.1 Abs Basophils (Manual) 0 Normal RBC Morphology Not Reportable Hypochromasia 1+ Sodium 139 Potassium 3.4 L Chloride 111 Carbon Dioxide 25 Anion Gap 3 BUN 9 Creatinine 0.86 Est GFR ( Amer) 79.4 Est GFR (Non-Af Amer) 65.6 BUN/Creatinine Ratio 10.5 Glucose 111 H POC Glucose (mg/dL) 159 H Calcium 8.5 L Total Bilirubin 0.40 AST 23 ALT 5 L Alkaline Phosphatase 81 Total Protein 5.5 L Albumin 3.0 L Globulin 2.5 Albumin/Globulin Ratio 1.2 04/11/18 08:05 WBC RBC Hgb Hct MCV MCH MCHC RDW Plt Count MPV Neut % (Auto) Lymph % (Auto) [place] % (Auto) Eos % (Auto) Baso % (Auto) Absolute Neuts (auto) Absolute Lymphs (auto) Absolute Monos (auto) Absolute Eos (auto) Absolute Basos (auto) Absolute Nucleated RBC Neutrophils % Lymphocytes % Monocytes % Eosinophils % Basophils % Nucleated RBC % Abs Neuts (Manual) Abs Lymphs (Manual) Abs Monocytes (Manual) Absolute Eos (Manual) Abs Basophils (Manual) Normal RBC Morphology Hypochromasia Sodium Potassium Chloride Carbon Dioxide Anion Gap BUN Creatinine Est GFR ( Amer) Est GFR (Non-Af Amer) BUN/Creatinine Ratio Glucose POC Glucose (mg/dL) 121 H Calcium Total Bilirubin AST ALT Alkaline Phosphatase Total Protein Albumin Globulin Albumin/Globulin Ratio Exam: GEN: No acute distress. Alert and appropriate. LUNGS: Clear to auscultation bilaterally HEART: regular rate and rhythm ABDOMEN: Soft, +BS, non-tender, non-distended EXTREMITIES: increased tone with resting tremor in arms. No edema. NEUROLOGIC: Muscle strength 5/5 in BLE with normal sensation. Assessment/Plan: 1. T7 and T8 fractures: PT/OT. TLSO when OOB. 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 2. Parkinson's Disease: Sinemet TID. PT/OT. 3. IDDM: Lantus on 28 units daily. Lispro SSi 4. Diabetic peripheral neuropathy: Gabapentin 5. DVT Prophylaxis: Lovenox S/Q 6. Advanced Directives: DNR. Has MOLST 7. Neutropenia/leukopenia/thrombocytopenia: She does not recall ever having an issue with this and in [place] [facility] [place]. Consult to hematology called to Dr. Melendez. Neutropenic precautions. 8. Hypokalemia: start KCL 20mEq bid and check Mg. Recheck P3 in AM. 9. Estimated LOS: IPOC today. 04/11/18 10:19
[2018-04-11] MEDS: Potassium Chlor TAB* 20 MEQ TAB.ER PO SCH ×2 (10:32→20:08)
--- NOTE | 2018-04-11 12:44 | PMRUTEAM ---
PMRU: Team Meeting Current Status: Nursing: Current Status Skin Deviations [right A/C] Bruise,Previous Access Point Skin Deviation Description [ old IV removed today compressive dressing in place right A/C] Physical Therapy: Current Status Bed Mobility Assistance Contact Guard Assist,Min Assist Transfer Moblility Assistance Supervision,Contact Guard Assist Transfer/Bed Mobility Rolling Walker Recommended Devices Ambulation Assistance Supervision,Contact Guard Assist Ambulation Assistive Devices Rolling Walker Number of Feet Patient 150 Ambulated Stairs Assistance Supervision Stairs Recommended Devices Two Rails Number of Stairs 3x2 Objective Comments patient demonstrates good ability in ascent and descent of stairs. is SOB and fatigued with completion. needs increased work on this skill. Occupational Therapy: Current Status Upper Body Dressing Min Assist Lower Body Dressing Min Assist Bathing Min Assist Shower Transfer Contact Guard Assist Eating Independent Rec Therapy: Current Status Summary of Assessment and Pt. was open to conversation - appropriate and Clinical Impression cooperative throughout. Pt. identified with interests but has barriers such as her physical health and lack of time. Pt. states she hasn't been as active in the past 2 months but has a desire to re-engage. Provided pt. with word search puzzles. Pt. was open to continued leisure visits. Treatment Goals Pt. will engage in leisure activities while on the unit. Treatment Plan Provide RT services and encourage involvement. Social Work: Current Status Discharge Plan return home with home care svs and family support Potential for Family Training TBD Anticipated Discharge Home Destination Discharge With home care svs and family support Goals: Physical Therapy: Initial Goals Bed Mobility Assistance Independent Transfer Mobility Assistance Independent Transfer/Bed Mobility Rolling Walker Recommended Devices Ambulation Independent Ambulation Recommended Devices Rolling Walker Ambulation Distance 150 Stairs Assistance Independent Stair Recommended Devices Two Rails Number of Stairs 6 Occupational Therapy: Initial Goals Goals to be Completed in (Days 7-10 ) Upper Body Bathing Routine Independent Lower Body Bathing Routine Modified Independent with Upper Body Dressing Routine Modified Independent with Lower Body Dressing Routine Modified Independent with Toilet Hygeine and Clothing Modified Independent with Management Routine Toilet Transfer Routine Modified Independent with Tub Transfer Routine Modified Independent with Functional Transfers for ADL Modified Independent with Grooming Routine Independent Feeding Routine Independent Social Work: Goals Discharge Plan return home with home care svs and family support Potential for Family Training TBD Anticipated Discharge Home Destination Discharge With home care svs and family support Care Plan: Care Plan ADL's - Improve/Maintain Start: 04/09/18 14:50 Freq: DAILY Status: Active Target: Protocol: Activity Type Activity Date Activity User E-Sign Co-Sign Detail Recorded Client Recorded Date Recorded By Document 04/10/18 13:26 [id number] [id number] 04/10/18 13:27 [id number] 04/10/18 13:26 PMRU Outcome: ADL's/ADL Transfers Orders/Interventions Occupational Therapy Evaluation & Treatment Communication Tool in Patient Room Device Yes Address Deficits Secondary To: T7-T8 compression fx, h/o Parkinson' s Patient to receive OT 5x/wk for 60-120 Therex min/day Self Care Management Group Therapy UE/LE ADL's with Assist Yes: Kelli ADL Transfers with Assist Yes: Kelli Toileting: Transfers,Clothing Management Yes: Kelli ,Hygeine w/Assist Progression Toward Outcome/Goals Progressing Outcome/Goals Met Pt participated well in treatment session, glad to get a shower . Will need training with AE and practice donning/ doffing TLSO brace as well as possible toilet aid to maximize independence with ADL routine. DVT Prophylaxis- Improve/Maintain Start: 04/09/18 12:57 Freq: QSHIFT Status: Active Target: Protocol: Activity Type Activity Date Activity User E-Sign Co-Sign Detail Recorded Client Recorded Date Recorded By Document 04/11/18 01:07 [id number] [id number] 04/11/18 01:08 [id number] 04/11/18 01:07 PMRU Outcome: DVT Prophylaxis Outcome/Goals Remains Free of DVT Complies with DVT Prophylaxis /Treatment TEDS Stockings on Every AM, Off at HS Other Outcome/Goals refusing FELY's Progression Toward Outcome/Goals Not Progressing Discharge Planning - Improve/Maintain Start: 04/09/18 12:57 Freq: DAILY Status: Active Target: Protocol: Activity Type Activity Date Activity User E-Sign Co-Sign Detail Recorded Client Recorded Date Recorded By Document 04/11/18 01:00 [id number] 04/11/18 01:08 [id number] 04/11/18 01:00 PMRU Outcome: Discharge Planning Update Patient Family No Outcome/Goals Demonstrates Understanding of Discharge Plan Progression Toward Outcome/Goals Progressing Education-Improve/Maintain Start: 04/09/18 12:57 Freq: QSHIFT Status: Active Target: Protocol: Activity Type Activity Date Activity User E-Sign Co-Sign Detail Recorded Client Recorded Date Recorded By Document 04/11/18 01:07 [id number] [id number] 04/11/18 01:08 [id number] 04/11/18 01:07 PMRU Outcome: Education Outcome/Goals Demonstrate/ Verbalize Understanding of Written Discharge Instructions Demonstrates Skills Encourage Questions Progression Toward Outcome/Goals Progressing /GI-Improve/Maintain Start: 04/09/18 12:57 Freq: QSHIFT Status: Active Target: Protocol: Activity Type Activity Date Activity User E-Sign Co-Sign Detail Recorded Client Recorded Date Recorded By Document 04/11/18 01:07 [id number] [email or web address] 04/11/18 01:08 [id number] 04/11/18 01:07 PMRU Outcome: Genitourinary/ Gastrointestinal Genitourinary- Outcome/Goals Maintain/ Achieve Urinary Continence Maintain/ Achieve Adequate Urinary Output Gastrointestinal-Outcome/Goals Prevent Constipation Progression Toward Outcome/Goals - Progressing Medication Administration Start: 04/09/18 12:57 Freq: QSHIFT Status: Active Target: Protocol: Activity Type Activity Date Activity User E-Sign Co-Sign Detail Recorded Client Recorded Date Recorded By Document 04/11/18 01:07 [id number] [email or web address] 04/11/18 01:08 [id number] 04/11/18 01:07 PMRU Outcome: Medication Administration Assess Patient Knowledge/Teach Med Yes Education for all Meds Outcome/Goals Patient Independent with Medication Administration at Home Demonstrates Understanding Progression Towards Outcome/Goals Progressing Is Patient Going Home on Lovenox? No Metabolic Status- Improve/Maintain Start: 04/09/18 12:57 Freq: QSHIFT Status: Active Target: Protocol: Activity Type Activity Date Activity User E-Sign Co-Sign Detail Recorded Client Recorded Date Recorded By Document 04/11/18 01:07 [id number] [email or web address] 04/11/18 01:08 [id number] 04/11/18 01:07 PMRU Outcome: Metabolic Status Have Fingersticks Been Ordered Yes Fingerstick Order Frequency AC & HS Outcome/Goals Maintain/ Improve Metabolic Status Demonstrate Knowledge of Prevention/ Treatment of Metabolic Imbalances Progression Toward Outcome/Goals Progressing Neurological- Improve/Maintain Start: 04/09/18 12:57 Freq: QSHIFT Status: Active Target: Protocol: Activity Type Activity Date Activity User E-Sign Co-Sign Detail Recorded Client Recorded Date Recorded By Document 04/11/18 01:07 [id number] 04/11/18 01:08 [id number] 04/11/18 01:07 PMRU Outcome: Neurological Weakness/Aphasia Weakness Outcome/Goals Improve Neurological Status Maintain/ Improve Strength/ROM Progression Toward Outcome/Goals Progressing Pain/Comfort- Improve/Maintain Start: 04/09/18 12:57 Freq: QSHIFT Status: Active Target: Protocol: Activity Type Activity Date Activity User E-Sign Co-Sign Detail Recorded Client Recorded Date Recorded By Document 04/11/18 01:07 [id number] 04/11/18 01:08 [id number] 04/11/18 01:07 PMRU Outcome: Pain/Comfort Outcome/Goals Achieves Acceptable Comfort/Pain Level as Determined by Patient/Condit Maintain Comfort Level Allowing Patient to Fully Participate in Rehab Progression Toward Outcome/Goals Progressing Outcome/Goals Met Comment ice placed and pain medicaition given Safety- Improve/Maintain Start: 04/09/18 12:57 Freq: QSHIFT Status: Active Target: Protocol: Activity Type Activity Date Activity User E-Sign Co-Sign Detail Recorded Client Recorded Date Recorded By Document 04/11/18 01:07 [id number] 04/11/18 01:08 [id number] 04/11/18 01:07 PMRU Outcome: Safety Outcome/Goals Remain Free of Injury or Harm Cooperates with Safety Measures for Least Restrictive Environment Prevent Falls/ Injury Progression Toward Outcome/Goals Progressing Outcome/Goals Met Comment BA armed Medicine Note: Length of Stay: [6 days] Anticipated Discharge Destination: Home Tentative Discharge Date: [04/17/18] Discharged to: [home]
[2018-04-11] MEDS: Magnesium Oxide TAB* 400 MG PO SCH (12:56)
[2018-04-11] MEDS: Atorvastatin* 40 MG TAB PO SCH (16:53)
[2018-04-11 17:33] LABS: Corrected Retic Count 1.5 % (0.5-1.5); Hematocrit for Retic CNT 33 % (35-47); Immature Retic Fraction 0.45; RBC Retic Count 4.15 10^6/ul (4.6-6.2)
[2018-04-11 17:51] LABS: Uric Acid 6.3 mg/dL (2.3-6.6)
[2018-04-11] MEDS: Enoxaparin(*) 40 MG/0.4 ML SYR SUBCUT SCH (20:16)
--- NOTE | 2018-04-12 01:07 | CONS ---
CONSULTATION REPORT: DATE OF CONSULT: 04/11/18 REFERRING PHYSICIAN: Dr. Romero. PRIMARY CARE PHYSICIAN: Melly. REASON FOR CONSULT: Pancytopenia. HISTORY OF PRESENT ILLNESS: Ms. Palacios is a 67-year-old female who presented to the emergency room on 04/03/18 with acute back pain. She has had multiple falls since February. First fall was slipping on a magazine, no major injury. Second fall tripped walking up steps, and the third fall coming up out of her cellar in February 2017. She had another fall trying to walk to work tripping on the sidewalk. Ultimately, at an accommodation, she parked her car at a specified parking spot at work and a coworker would help her from the car to the office. She was being walked to the office when she again tripped on the sidewalk, fell back and hit her head. She presented to the emergency room and had MRI of the C-spine and T-spine that showed a new compression fracture at T7- T8 without hematoma. She was seen by Neurosurgery and does not appear to be a surgical candidate, they did recommend a brace, which was placed during her hospitalization. Because of a history of Parkinson's disease and frequent falls , she did not feel comfortable going home with her brace and is now being admitted to [facility] for rehab. Since coming to [facility], she has been doing relatively well and has gained functional activities such as tying her shoes and has improved her mobility. Plan will be discharge home. On presentation on 04/03/18, she had a CBC with a white count of 3.9, hemoglobin 11.2, MCV 78, and platelets of 120,000. Last CBC before that was in June 2017, when she had platelets of 154,000, white count of 5.1, and a hemoglobin of 12.2. Her MCV was 78, RDW was 17. Repeat CBC on 04/04/18, showed slight decrease in hemoglobin and platelets. When she went to [facility] on 04/11/18 , she had a repeat CBC again and now showed a white count of 1.6, hemoglobin 10.3, similar indices, and platelet count 195,000, ANC of 500, with a neutrophil count of 800. Review of manual blood films from 04/11/18 showed small red blood cells, no evidence of microangio or vascular disease, platelets are normal in size, and she is leukopenic. Neutrophils are small and nondysplastic, she has lymphocytes that are variable, several do show regular cytoplasm, they are not overtly hairy cell. There are no immature cells and no blasts. Chemistries include a creatinine of 0.86 and albumin of 3, and a total globulin of 2.5, and she is diabetic, but has controlled sugars during the admission. Hematology was consulted based on new cytopenias. We do not have any whole body imaging. She followed with [facility] up until September when she went to [place]. She reports of never been told of low blood cells in the past. She has long-term fatigue, but does not seem better or worse over the past several months. She denies fevers, chills, night sweats, or skin rashes. She has not noted any swollen glands or lymphadenopathy. She has had significant pain from her falls and has seen Dr. Andrade several times. Decreasing mobility and was told she has progressive neuropathy, which has been attributed to her diabetes. PAST MEDICAL HISTORY: 1. Parkinson's disease. Longstanding management by Dr. Andrade. 2. Diabetes, complicated by retinopathy and neuropathy. Currently on insulin. 3. Peripheral neuropathy. 4. Hyperlipidemia. 5. Hypothyroidism. 6. Hypertension. 7. Osteoarthritis and degenerative joint disease. 8. Coronary artery disease with 3 stents. Not currently on antiplatelet therapy. PAST SURGICAL HISTORY: 1. Gallbladder removed. 2. Torn meniscal repair in 2015. 3. Open repair of the fractured wrist. MEDICATIONS: On admission were: 1. Lipitor 40 mg a day. 2. Sinemet 25/100 one tab t.i.d. 3. Celexa 40 mg a day. 4. Gabapentin 300 mg t.i.d. (started September 2017). 5. Atarax 10 mg p.r.n. 6. Lantus 32 units at bedtime. 7. Humulin sliding scale. 8. Toprol-XL 50 mg a day. 9. Tramadol 50 mg b.i.d. 10. Melatonin 3 mg at bedtime. 11. B12 1000 mcg once every 30 days IM. ALLERGIES: None. FAMILY HISTORY: Diabetes and cardiac disease. No cancer history. SOCIAL HISTORY: She is . She works at the [employer] in [place]. She has 3 children, 6 grandchildren. Primary local support is the son, who lives in the area. She does not smoke and does not drink, never did either. REVIEW OF SYSTEMS: General: Fatigue as noted above. No fevers, chills, or night sweats. HEENT: Negative. Pulmonary: No shortness of breath. Cardiac: Prior [place]. No current chest pain or palpitations. GI: She says she is eating well, normal bowel movements. : Some polyuria, no dysuria. Musculoskeletal: Back pain, on the brace; knee pain; and diffuse joint pain. She had pain at her thighs recently after a different fall. Neurologic: Peripheral neuropathy as noted above. No history of stroke. Skin: Negative. PHYSICAL EXAM: BP 129/106, temperature 98, pulse rate 66, respirations 20, O2 sat 100%. HEENT: Conjunctivae pale. Mucosa moist. No cervical or supraclavicular lymphadenopathy. Lungs: Limited exam because of her brace, but clear to auscultation. Heart: Regular rate and rhythm. S1, S2. No clear murmurs. Abdomen: She is obese, cannot palpate liver or spleen. Good bowel sounds, nontender. Nodes: No palpable peripheral lymphadenopathy. Extremities : +1 edema and good pulses. Neurologic: She is alert and oriented x3, a full exam deferred. Grossly nonfocal. DIAGNOSTIC STUDIES/LAB DATA: Labs: As noted above. CT scan of the spine does not show particular osteopenia. She has a fairly marked splenomegaly, although only the upper portion of the spleen is seen, normal renal function, no upper retroperitoneal lymphadenopathy visible on the scan and no clear mediastinal lymphadenopathy. IMPRESSION: A 67-year-old female who has progressive pancytopenia during admission for compression fracture. Differential diagnosis is broad. I am suspicious of either a splenic marginal zone lymphoma or hairy cell lymphoma given splenomegaly on the CT and the appearance of peripheral blood. However, this could be as simple as vitamin B12 deficiency, could be myelodysplasia, multiple myeloma, could be medication effect, or an immune pancytopenia. She is taking gabapentin, which is new, that can cause decreased blood counts. PLAN/RECOMMENDATIONS: 1. We will send additional blood work today including repeating her B12, checking an SPEP and LDH and a uric acid, we will also send an ESR and rheumatoid factor. 2. She will need a bone marrow biopsy on Saturday barring a clear finding on today's blood work. This was discussed with the patient. It will be logistically difficult and we will decide if it is under the bedside or with CT guidance. 3. We will try to obtain old records from [facility] in [place] to get better timeline of her cytopenias, but it appears to be of rapid onset. 4. Although peripheral blood is not suspicious, we will check Isha along with iron studies for her microcytosis. 5. No indication for transfusion at this time. Will need antibiotics for fever and I would treat as neutropenia if she develops infection. [id number]/[facility] #: [id number] MTDD
[2018-04-12 07:02] LABS: Hematocrit 33 % (35-47); Hemoglobin 10.9 g/dl (12.0-16.0); Mean Corpuscular HGB Conc 33 g/dl (31-36); Mean Corpuscular Hemoglobin 26 pg (27-31); Mean Corpuscular Volume 79 fL (80-97); Mean Platelet Volume 7.8 fL (7.4-10.4); Platelet Count 104 10^3/ul (150-450); Red Blood Count 4.18 10^6/ul (4.00-5.40); Red Cell Distribution Width 20 % (10.5-15); White Blood Count 1.8 10^3/ul (3.5-10.8)
[2018-04-12 07:07] LABS: ABS Basophils 0 10^3/ul (0-0.2); ABS Eosinophils 0.1 10^3/ul (0-0.6); ABS Lymphocytes 0.8 10^3/ul (1.0-4.8); ABS Monocytes 0.2 10^3/ul (0-0.8); ABS Neutrophils 0.6 10^3/ul (1.5-7.7); ABS Nucleated RBC 0 10^3/ul; Eosinophil % 5.2 % (0-6); Lymphocyte % 46.6 % (25-47); Nucleated Red Blood Cells % 0.5
[2018-04-12 07:13] LABS: EGFR Non-African American 61.5 (>60)
[2018-04-12] MEDS: Carbidopa/Levodop 25/100 MG TAB(*) PO SCH ×3 (09:12→20:51)
[2018-04-12] MEDS: Citalopram TAB* 40 MG PO SCH (09:12)
[2018-04-12] MEDS: Gabapentin CAP(*) 300 MG PO SCH ×3 (09:13→20:51)
[2018-04-12] MEDS: Docusate CAP* 100 MG PO SCH ×2 (09:13→20:52)
[2018-04-12] MEDS: Magnesium Oxide TAB* 400 MG PO SCH (09:13)
[2018-04-12] MEDS: Potassium Chlor TAB* 20 MEQ TAB.ER PO SCH (09:13)
[2018-04-12] MEDS: Metoprolol Succinate XL TAB* 50 MG PO SCH (09:14)
[2018-04-12] MEDS: Insulin LISPRO* 1 UNITS UNIT SUBCUT SCH ×4 (09:46→20:52)
[2018-04-12] MEDS: Insulin GLARGINE(*) 1 UNITS UNIT SUBCUT SCH (09:46)
--- NOTE | 2018-04-12 10:05 | PN ---
Progress Note Date of Service: 04/12/18 Note: RON TOMLINSON was visited. Nursing and therapy notes read and reviewed. No chest pain, shortness of breath or abdominal pain. Met with Dr. Melendez yesterday and additional labs ordered. Current Medications: Active Medications Generic Name Dose Route Start Last Admin Trade Name Freq PRN Reason Stop Dose Admin Acetaminophen 650 mg 04/09/18 12:18 Tylenol Tab* PO Q6H PRN FEVER/PAIN Atorvastatin Calcium 40 mg 04/10/18 17:00 04/11/18 16:53 Lipitor* PO 40 mg 1700 KAYCEE Administration Carbidopa/Levodopa 1 tab 04/09/18 14:00 04/12/18 09:12 Sinemet 25/100 Tab(*) PO 1 tab TID KAYCEE Administration Citalopram Hydrobromide 40 mg 04/10/18 09:00 04/12/18 09:12 Celexa Tab* PO 40 mg DAILY KAYCEE Administration Dextrose 12.5 gm 04/09/18 12:38 [id number] Syringe 50 Ml* IV PUSH .FOR FS < 60 - SS PRN FS < 60 Docusate Sodium 100 mg 04/09/18 21:00 04/12/18 09:13 Colace Cap* PO Not Given BID KAYCEE Enoxaparin Sodium 40 mg 04/09/18 20:00 04/11/18 20:16 Lovenox(*) SUBCUT 40 mg Q24H KAYCEE Administration Gabapentin 300 mg 04/09/18 14:00 04/12/18 09:13 Neurontin Cap(*) PO 300 mg TID KAYCEE Administration Insulin Glargine 28 units 04/11/18 09:00 04/12/18 09:46 Lantus(*) SUBCUT 28 units Q24H KAYCEE Administration Insulin Human Lispro 0 - 10 units 04/09/18 16:30 04/12/18 09:46 Humalog* SUBCUT 1 units ACHS KAYCEE Administration Protocol Magnesium Hydroxide 30 ml 04/09/18 12:18 Milk Of Magnesia Liq* PO Q6H PRN CONSTIPATION Magnesium Oxide 400 mg 04/13/18 09:00 Magox 400 Tab* PO DAILY KAYCEE Metoprolol Succinate 50 mg 04/10/18 09:00 04/12/18 09:14 Toprol Xl Tab* PO 50 mg DAILY KAYCEE Administration Oxycodone/Acetaminophen 1 tab 04/09/18 12:31 04/11/18 22:29 Percocet 5/325 Tab* PO 1 tab Q4H PRN Administration PAIN - MODERATE TO SEVERE Potassium Chloride 10 meq 04/12/18 21:00 Klor Con Er Tab* PO BID KAYCEE Senna 2 tab 04/09/18 12:18 Senokot Tab* PO BEDTIME PRN CONSTIPATION Vital Signs: Vital Signs Temp Pulse Resp BP Pulse Ox 97.9 F 68 18 143/51 100 04/12/18 06:58 04/12/18 06:58 04/12/18 09:13 04/12/18 06:58 04/12/18 06:58 Lab Results: Laboratory Results - last 24 hr 04/11/18 04/11/18 04/11/18 06:53 06:53 06:58 WBC RBC RBC (Retic) Hgb Hct HCT (Retic) MCV MCH MCHC RDW Plt Count MPV Neut % (Auto) Lymph % (Auto) [place] % (Auto) Eos % (Auto) Baso % (Auto) Absolute Neuts (auto) Absolute Lymphs (auto) Absolute Monos (auto) Absolute Eos (auto) Absolute Basos (auto) Absolute Nucleated RBC Nucleated RBC % ESR Retic Count, Calc Corrected Retic Count Retic Shift Factor Retic Production Index Immature Retic Fraction Mean Retic Volume Sodium 139 Potassium 3.4 L Chloride 111 Carbon Dioxide 25 Anion Gap 3 BUN 9 Creatinine 0.86 Est GFR ( Amer) 79.4 Est GFR (Non-Af Amer) 65.6 BUN/Creatinine Ratio 10.5 Glucose 111 H POC Glucose (mg/dL) Uric Acid 6.3 Calcium 8.5 L Magnesium 1.7 L Iron 22 L TIBC 314 % Saturation 7 L Unsat Iron Binding < 299 Transferrin 224 Ferritin 12.3 Total Bilirubin 0.40 AST 23 ALT 5 L Alkaline Phosphatase 81 Lactate Dehydrogenase 174 Total Protein 5.5 L Albumin 3.0 L Globulin 2.5 Albumin/Globulin Ratio 1.2 Vitamin B12 501 Rheumatoid Factor < 10 Direct Antiglob Test Negative 04/11/18 04/11/18 04/11/18 11:47 16:38 17:24 WBC RBC RBC (Retic) 4.15 L Hgb Hct HCT (Retic) 33 L MCV MCH MCHC RDW Plt Count MPV Neut % (Auto) Lymph % (Auto) [place] % (Auto) Eos % (Auto) Baso % (Auto) Absolute Neuts (auto) Absolute Lymphs (auto) Absolute Monos (auto) Absolute Eos (auto) Absolute Basos (auto) Absolute Nucleated RBC Nucleated RBC % ESR 27 Retic Count, Calc 2.1 H Corrected Retic Count 1.5 Retic Shift Factor 1.5 Retic Production Index 1.00 Immature Retic Fraction 0.45 Mean Retic Volume 98.6 Sodium Potassium Chloride Carbon Dioxide Anion Gap BUN Creatinine Est GFR ( Amer) Est GFR (Non-Af Amer) BUN/Creatinine Ratio Glucose POC Glucose (mg/dL) 175 H 164 H Uric Acid Calcium Magnesium Iron TIBC % Saturation Unsat Iron Binding Transferrin Ferritin Total Bilirubin AST ALT Alkaline Phosphatase Lactate Dehydrogenase Total Protein Albumin Globulin Albumin/Globulin Ratio Vitamin B12 Rheumatoid Factor Direct Antiglob Test 04/11/18 04/12/18 04/12/18 19:25 06:47 06:47 WBC 1.8 L RBC 4.18 RBC (Retic) Hgb 10.9 L Hct 33 L HCT (Retic) MCV 79 L MCH 26 L MCHC 33 RDW 20 H Plt Count 104 L MPV 7.8 Neut % (Auto) 35.4 L Lymph % (Auto) 46.6 [place] % (Auto) 12.0 H Eos % (Auto) 5.2 Baso % (Auto) 0.8 Absolute Neuts (auto) 0.6 L* Absolute Lymphs (auto) 0.8 L Absolute Monos (auto) 0.2 Absolute Eos (auto) 0.1 Absolute Basos (auto) 0 Absolute Nucleated RBC 0 Nucleated RBC % 0.5 ESR Retic Count, Calc Corrected Retic Count Retic Shift Factor Retic Production Index Immature Retic Fraction Mean Retic Volume Sodium 140 Potassium 4.0 Chloride 108 Carbon Dioxide 28 Anion Gap 4 BUN 9 Creatinine 0.91 Est GFR ( Amer) 74.4 Est GFR (Non-Af Amer) 61.5 BUN/Creatinine Ratio 9.9 Glucose 120 H POC Glucose (mg/dL) 149 H Uric Acid Calcium 9.0 Magnesium Iron TIBC % Saturation Unsat Iron Binding Transferrin Ferritin Total Bilirubin AST ALT Alkaline Phosphatase Lactate Dehydrogenase Total Protein Albumin Globulin Albumin/Globulin Ratio Vitamin B12 Rheumatoid Factor Direct Antiglob Test 04/12/18 09:09 WBC RBC RBC (Retic) Hgb Hct HCT (Retic) MCV MCH MCHC RDW Plt Count MPV Neut % (Auto) Lymph % (Auto) [place] % (Auto) Eos % (Auto) Baso % (Auto) Absolute Neuts (auto) Absolute Lymphs (auto) Absolute Monos (auto) Absolute Eos (auto) Absolute Basos (auto) Absolute Nucleated RBC Nucleated RBC % ESR Retic Count, Calc Corrected Retic Count Retic Shift Factor Retic Production Index Immature Retic Fraction Mean Retic Volume Sodium Potassium Chloride Carbon Dioxide Anion Gap BUN Creatinine Est GFR ( Amer) Est GFR (Non-Af Amer) BUN/Creatinine Ratio Glucose POC Glucose (mg/dL) 132 H Uric Acid Calcium Magnesium Iron TIBC % Saturation Unsat Iron Binding Transferrin Ferritin Total Bilirubin AST ALT Alkaline Phosphatase Lactate Dehydrogenase Total Protein Albumin Globulin Albumin/Globulin Ratio Vitamin B12 Rheumatoid Factor Direct Antiglob Test Exam: GEN: No acute distress. Alert and appropriate. LUNGS: Clear to auscultation bilaterally HEART: regular rate and rhythm ABDOMEN: Soft, +BS, non-tender, non-distended EXTREMITIES: resting tremor in arms. No edema. NEUROLOGIC: Muscle strength 5/5 in BLE with normal sensation. Assessment/Plan: 1. T7 and T8 fractures: PT/OT. TLSO when OOB. 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 2. Parkinson's Disease: Sinemet TID. PT/OT. 3. IDDM: Lantus 28 units daily. Lispro SSi 4. Diabetic peripheral neuropathy: Gabapentin 5. DVT Prophylaxis: Lovenox S/Q 6. Advanced Directives: DNR. Has MOLST 7. Pancytopenia: Oncology, Dr. Melendez, following. If she get a fever, treat with empiric antibiotics for neutropenic fever. Additional labs ordered by oncology and depending on results may need bone marrow biopsy on Saturday. Neutropenic precautions. 8. Hypokalemia/Hypomagnesemia: decrease KCL to 10mEq bid and decrease Mg to 400mg qday. Recheck P3 Saturday 9. Estimated LOS: 04/17/18. 04/12/18 10:01
[2018-04-12] MEDS: Atorvastatin* 40 MG TAB PO SCH (18:14)
[2018-04-12] MEDS: Hydrocortisone 1% CREAM* 30 GM TUBE TOPICAL PRN (18:14)
[2018-04-12] MEDS: Enoxaparin(*) 40 MG/0.4 ML SYR SUBCUT SCH (20:19)
[2018-04-12] MEDS: Potassium Chlor TAB* 10 MEQ TAB.ER PO SCH (20:51)
[2018-04-12] MEDS: oxyCODONE/Acetamin 5/325 MG* TAB PO PRN (22:45)
[2018-04-13] MEDS: Acetaminophen TAB* 325 MG PO PRN (05:46)
[2018-04-13] MEDS: Insulin LISPRO* 1 UNITS UNIT SUBCUT SCH ×4 (08:24→21:13)
--- NOTE | 2018-04-13 09:22 | PN ---
Progress Note Date of Service: 04/13/18 Note: RON TOMLINSON was visited. Nursing and therapy notes read and reviewed. No chest pain, shortness of breath or abdominal pain. Current Medications: Active Medications Generic Name Dose Route Start Last Admin Trade Name Freq PRN Reason Stop Dose Admin Acetaminophen 650 mg 04/09/18 12:18 04/13/18 05:46 Tylenol Tab* PO 650 mg Q6H PRN Administration FEVER/PAIN Atorvastatin Calcium 40 mg 04/10/18 17:00 04/12/18 18:14 Lipitor* PO 40 mg 1700 [facility] Administration Carbidopa/Levodopa 1 tab 04/09/18 14:00 04/12/18 20:51 Sinemet 25/100 Tab(*) PO 1 tab TID KAYCEE Administration Citalopram Hydrobromide 40 mg 04/10/18 09:00 04/12/18 09:12 Celexa Tab* PO 40 mg DAILY [facility] Administration Dextrose 12.5 gm 04/09/18 12:38 D50w Syringe 50 Ml* IV PUSH .FOR FS < 60 - SS PRN FS < 60 Docusate Sodium 100 mg 04/09/18 21:00 04/12/18 20:52 Colace Cap* PO Not Given BID [facility] Enoxaparin Sodium 40 mg 04/09/18 20:00 04/12/18 20:19 Lovenox(*) SUBCUT 40 mg Q24H [facility]E Administration Gabapentin 300 mg 04/09/18 14:00 04/12/18 20:51 Neurontin Cap(*) PO 300 mg TID KAYCEE Administration Hydrocortisone 1 applic 04/12/18 13:52 04/12/18 18:14 Hytone Cream 1%* TOPICAL 1 applic QID PRN Administration ITCHING Insulin Glargine 28 units 04/11/18 09:00 04/12/18 09:46 Lantus(*) SUBCUT 28 units Q24H KAYCEE Administration Insulin Human Lispro 0 - 10 units 04/09/18 16:30 04/13/18 08:24 Humalog* SUBCUT Not Given ACHS [facility] Protocol Magnesium Hydroxide 30 ml 04/09/18 12:18 Milk Of Magnesia Liq* PO Q6H PRN CONSTIPATION Magnesium Oxide 400 mg 04/13/18 09:00 Magox 400 Tab* PO DAILY [facility] Metoprolol Succinate 50 mg 04/10/18 09:00 04/12/18 09:14 Toprol Xl Tab* PO 50 mg DAILY [facility] Administration Oxycodone/Acetaminophen 1 tab 04/09/18 12:31 04/12/18 22:45 Percocet 5/325 Tab* PO 1 tab Q4H PRN Administration PAIN - MODERATE TO SEVERE Potassium Chloride 10 meq 04/12/18 21:00 04/12/18 20:51 Klor Con Er Tab* PO 10 meq BID [facility] Administration Senna 2 tab 04/09/18 12:18 Senokot Tab* PO BEDTIME PRN CONSTIPATION Vital Signs: Vital Signs Temp Pulse Resp BP Pulse Ox 97.8 F 62 18 132/72 99 04/13/18 06:13 04/13/18 06:13 04/13/18 08:00 04/13/18 06:13 04/13/18 08:00 Lab Results: Laboratory Results - last 24 hr 04/12/18 04/12/18 04/12/18 12:08 16:27 20:14 POC Glucose (mg/dL) 184 H 111 H 182 H Exam: GEN: No acute distress. Alert and appropriate. LUNGS: Clear to auscultation bilaterally HEART: regular rate and rhythm ABDOMEN: Soft, +BS, non-tender, non-distended EXTREMITIES: resting tremor in arms. No edema. NEUROLOGIC: Muscle strength 5/5 in BLE with normal sensation. Assessment/Plan: 1. T7 and T8 fractures: PT/OT. TLSO when OOB. 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 2. Parkinson's Disease: Sinemet TID. PT/OT. 3. IDDM: Lantus 28 units daily. Lispro SSi 4. Diabetic peripheral neuropathy: Gabapentin 5. DVT Prophylaxis: Lovenox S/Q 6. Advanced Directives: DNR. Has MOLST 7. Pancytopenia: Oncology, Dr. Melendez, following. If she gets a fever, treat with empiric antibiotics for neutropenic fever. Additional labs ordered by oncology and depending on results may need bone marrow biopsy on Saturday. Neutropenic precautions. Recheck CBC tomorrow. 8. Hypokalemia/Hypomagnesemia: KCL to 10mEq bid and Mg 400mg qday. Recheck P3 Saturday 9. Estimated LOS: 04/17/18. 04/13/18 09:21
[2018-04-13] MEDS: Gabapentin CAP(*) 300 MG PO SCH ×3 (09:26→21:12)
[2018-04-13] MEDS: Potassium Chlor TAB* 10 MEQ TAB.ER PO SCH ×2 (09:27→21:11)
[2018-04-13] MEDS: Citalopram TAB* 40 MG PO SCH (09:27)
[2018-04-13] MEDS: Metoprolol Succinate XL TAB* 50 MG PO SCH (09:27)
[2018-04-13] MEDS: Magnesium Oxide TAB* 400 MG PO SCH (09:27)
[2018-04-13] MEDS: Insulin GLARGINE(*) 1 UNITS UNIT SUBCUT SCH (09:28)
[2018-04-13] MEDS: Carbidopa/Levodop 25/100 MG TAB(*) PO SCH ×3 (09:28→21:12)
[2018-04-13] MEDS: Docusate CAP* 100 MG PO SCH ×2 (09:29→21:07)
[2018-04-13] MEDS: Hydrocortisone 1% CREAM* 30 GM TUBE TOPICAL PRN (11:09)
[2018-04-13] MEDS: Atorvastatin* 40 MG TAB PO SCH (17:10)
[2018-04-13] MEDS: Enoxaparin(*) 40 MG/0.4 ML SYR SUBCUT SCH (19:23)
[2018-04-13] MEDS: oxyCODONE/Acetamin 5/325 MG* TAB PO PRN (21:12)
[2018-04-14] MEDS: oxyCODONE/Acetamin 5/325 MG* TAB PO PRN ×3 (01:45→22:24)
[2018-04-14 06:18] LABS: ABS Basophils 0 10^3/ul (0-0.2); ABS Eosinophils 0.1 10^3/ul (0-0.6); ABS Lymphocytes 1.1 10^3/ul (1.0-4.8); ABS Monocytes 0.3 10^3/ul (0-0.8); ABS Neutrophils 1.1 10^3/ul (1.5-7.7); ABS Nucleated RBC 0 10^3/ul; Eosinophil % 5.2 % (0-6); Hematocrit 32 % (35-47); Hemoglobin 10.8 g/dl (12.0-16.0); Lymphocyte % 40.2 % (25-47); Mean Corpuscular HGB Conc 34 g/dl (31-36); Mean Corpuscular Hemoglobin 26 pg (27-31); Mean Corpuscular Volume 78 fL (80-97); Mean Platelet Volume 7.8 fL (7.4-10.4); Nucleated Red Blood Cells % 0.2; Platelet Count 121 10^3/ul (150-450); Red Blood Count 4.16 10^6/ul (4.00-5.40); Red Cell Distribution Width 19 % (10.5-15); White Blood Count 2.6 10^3/ul (3.5-10.8)
[2018-04-14] MEDS: Insulin LISPRO* 1 UNITS UNIT SUBCUT SCH ×4 (08:06→20:54)
[2018-04-14] MEDS: Metoprolol Succinate XL TAB* 50 MG PO SCH (08:20)
[2018-04-14] MEDS: Magnesium Oxide TAB* 400 MG PO SCH (08:21)
[2018-04-14] MEDS: Gabapentin CAP(*) 300 MG PO SCH ×3 (08:21→20:37)
[2018-04-14] MEDS: Carbidopa/Levodop 25/100 MG TAB(*) PO SCH ×3 (08:21→20:37)
[2018-04-14] MEDS: Citalopram TAB* 40 MG PO SCH (08:21)
[2018-04-14] MEDS: Docusate CAP* 100 MG PO SCH ×2 (08:22→20:37)
[2018-04-14] MEDS: Insulin GLARGINE(*) 1 UNITS UNIT SUBCUT SCH (10:16)
[2018-04-14] MEDS: Potassium Chlor TAB* 10 MEQ TAB.ER PO SCH (11:00)
[2018-04-14] MEDS: Acetaminophen TAB* 325 MG PO PRN (11:54)
--- NOTE | 2018-04-14 16:38 | PN ---
Progress Note Date of Service: 04/14/18 Note: RON TOMLINSON was visited. Therapy notes read and reviewed. She is no longer neutropenic. Await follow up from H/O regarding bone marrow biopsy. She is moving fairly well. She has probable fungal rash over groins Current Medications: Active Medications Generic Name Dose Route Start Last Admin Trade Name Freq PRN Reason Stop Dose Admin Acetaminophen 650 mg 04/09/18 12:18 04/14/18 11:54 Tylenol Tab* PO 650 mg Q6H PRN Administration FEVER/PAIN Atorvastatin Calcium 40 mg 04/10/18 17:00 04/13/18 17:10 Lipitor* PO 40 mg 1700 KAYCEE Administration Carbidopa/Levodopa 1 tab 04/09/18 14:00 04/14/18 14:18 Sinemet 25/100 Tab(*) PO 1 tab TID KAYCEE Administration Citalopram Hydrobromide 40 mg 04/10/18 09:00 04/14/18 08:21 Celexa Tab* PO 40 mg DAILY [facility] Administration Dextrose 12.5 gm 04/09/18 12:38 D50w Syringe 50 Ml* IV PUSH .FOR FS < 60 - SS PRN FS < 60 Docusate Sodium 100 mg 04/09/18 21:00 04/14/18 08:22 Colace Cap* PO Not Given BID [facility] Enoxaparin Sodium 40 mg 04/09/18 20:00 04/13/18 19:23 Lovenox(*) SUBCUT 40 mg Q24H [facility]CEE Administration Gabapentin 300 mg 04/09/18 14:00 04/14/18 14:18 Neurontin Cap(*) PO 300 mg TID KAYCEE Administration Hydrocortisone 1 applic 04/12/18 13:52 04/13/18 11:09 Hytone Cream 1%* TOPICAL 1 applic QID PRN Administration ITCHING Insulin Glargine 28 units 04/11/18 09:00 04/14/18 10:16 Lantus(*) SUBCUT 28 units Q24H [facility]CEE Administration Insulin Human Lispro 0 - 10 units 04/09/18 16:30 04/14/18 11:50 Humalog* SUBCUT 2 units ACHS KAYCEE Administration Protocol Magnesium Hydroxide 30 ml 04/09/18 12:18 Milk Of Magnesia Liq* PO Q6H PRN CONSTIPATION Magnesium Oxide 400 mg 04/13/18 09:00 04/14/18 08:21 Magox 400 Tab* PO 400 mg DAILY [facility] Administration Metoprolol Succinate 50 mg 04/10/18 09:00 04/14/18 08:20 Toprol Xl Tab* PO 50 mg DAILY [facility]CEE Administration Oxycodone/Acetaminophen 1 tab 04/09/18 12:31 04/14/18 01:45 Percocet 5/325 Tab* PO 1 tab Q4H PRN Administration PAIN - MODERATE TO SEVERE Senna 2 tab 04/09/18 12:18 Senokot Tab* PO BEDTIME PRN CONSTIPATION Vital Signs: Vital Signs Temp Pulse Resp BP Pulse Ox 98.2 F 59 16 129/47 99 04/14/18 15:53 04/14/18 15:53 04/14/18 15:53 04/14/18 15:53 04/14/18 15:53 Lab Results: Laboratory Results - last 24 hr 04/11/18 04/13/18 04/13/18 06:58 08:49 16:32 WBC 1.6 L RBC 4.03 Hgb 10.3 L Hct 32 L MCV 79 L MCH 26 L MCHC 32 RDW 20 H Plt Count 95 L MPV 7.6 Neut % (Auto) Lymph % (Auto) [place] % (Auto) Eos % (Auto) Baso % (Auto) Absolute Neuts (auto) 0.5 L* Absolute Lymphs (auto) Absolute Monos (auto) Absolute Eos (auto) Absolute Basos (auto) Absolute Nucleated RBC Neutrophils % 33 L Lymphocytes % 52 H Monocytes % 5 Eosinophils % 9 H Basophils % 1 Nucleated RBC % Abs Neuts (Manual) 0.5 L* Abs Lymphs (Manual) 0.8 L Abs Monocytes (Manual) 0.1 Absolute Eos (Manual) 0.1 Abs Basophils (Manual) 0 Hypochromasia 1+ Hem Pathologist Commnt Sodium Potassium Chloride Carbon Dioxide Anion Gap BUN Creatinine Est GFR ( Amer) Est GFR (Non-Af Amer) BUN/Creatinine Ratio Glucose POC Glucose (mg/dL) 91 138 H Calcium Magnesium 04/13/18 04/14/18 04/14/18 20:19 06:03 06:03 WBC 2.6 L RBC 4.16 Hgb 10.8 L Hct 32 L MCV 78 L MCH 26 L MCHC 34 RDW 19 H Plt Count 121 L MPV 7.8 Neut % (Auto) 42.6 Lymph % (Auto) 40.2 [place] % (Auto) 11.7 H Eos % (Auto) 5.2 Baso % (Auto) 0.3 Absolute Neuts (auto) 1.1 L Absolute Lymphs (auto) 1.1 Absolute Monos (auto) 0.3 Absolute Eos (auto) 0.1 Absolute Basos (auto) 0 Absolute Nucleated RBC 0 Neutrophils % Lymphocytes % Monocytes % Eosinophils % Basophils % Nucleated RBC % 0.2 Abs Neuts (Manual) Abs Lymphs (Manual) Abs Monocytes (Manual) Absolute Eos (Manual) Abs Basophils (Manual) Hypochromasia Hem Pathologist Commnt Sodium 141 Potassium 4.0 Chloride 109 Carbon Dioxide 29 Anion Gap 3 BUN 9 Creatinine 0.93 Est GFR ( Amer) 72.5 Est GFR (Non-Af Amer) 60.0 BUN/Creatinine Ratio 9.7 Glucose 100 POC Glucose (mg/dL) 133 H Calcium 8.9 Magnesium 1.8 L 04/14/18 04/14/18 04/14/18 06:18 07:42 11:51 WBC RBC Hgb Hct MCV MCH MCHC RDW Plt Count MPV Neut % (Auto) Lymph % (Auto) [place] % (Auto) Eos % (Auto) Baso % (Auto) Absolute Neuts (auto) Absolute Lymphs (auto) Absolute Monos (auto) Absolute Eos (auto) Absolute Basos (auto) Absolute Nucleated RBC Neutrophils % Lymphocytes % Monocytes % Eosinophils % Basophils % Nucleated RBC % Abs Neuts (Manual) Abs Lymphs (Manual) Abs Monocytes (Manual) Absolute Eos (Manual) Abs Basophils (Manual) Hypochromasia Hem Pathologist Commnt Sodium Potassium Chloride Carbon Dioxide Anion Gap BUN Creatinine Est GFR ( Amer) Est GFR (Non-Af Amer) BUN/Creatinine Ratio Glucose POC Glucose (mg/dL) 109 H 119 H 151 H Calcium Magnesium Exam: GENERAL: No acute distress. Alert and appropriate. LUNGS: Clear to auscultation bilaterally HEART: regular rate and rhythm ABDOMEN: Soft, +BS, non-tender, non-distended EXTREMITIES: resting tremor in arms. No edema. NEUROLOGIC: Muscle strength 5/5 in BLE with normal sensation. Assessment/Plan: 1. T7 and T8 fractures: PT/OT. TLSO when OOB. 2. Parkinson's Disease: Sinemet TID. PT/OT. 3. IDDM: Lantus 28 units daily. Lispro SSi 4. Diabetic peripheral neuropathy: Gabapentin 5. DVT Prophylaxis: Lovenox S/Q 6. Advanced Directives: DNR. Has MOLST 7. Pancytopenia: Oncology, Dr. Melendez, following. May need BM biopsy. No longer neutropenic. Recheck CBC Saturday. 8. Hypokalemia/Hypomagnesemia: Mg 400mg qday. 9. Estimated LOS: 04/17/18. 04/14/18 16:39
[2018-04-14] MEDS: Atorvastatin* 40 MG TAB PO SCH (16:47)
--- NOTE | 2018-04-14 17:53 | PN ---
Progress Note - Progress Note Date of Service: 04/14/18 SOAP: Subjective: []Doing better. In PMRU and planning on discharge . No bleeding or bruising. No fevers. Acetaminophen (Tylenol Tab*) 650 mg PO Q6H PRN PRN Reason: FEVER/PAIN Last Admin: 04/14/18 11:54 Dose: 650 mg Atorvastatin Calcium (Lipitor*) 40 mg PO 1700 [facility] Last Admin: 04/14/18 16:47 Dose: 40 mg Carbidopa/Levodopa (Sinemet 25/100 Tab(*)) 1 tab PO TID [facility] Last Admin: 04/14/18 14:18 Dose: 1 tab Citalopram Hydrobromide (Celexa Tab*) 40 mg PO DAILY [facility] Last Admin: 04/14/18 08:21 Dose: 40 mg Dextrose (D50w Syringe 50 Ml*) 12.5 gm IV PUSH .FOR FS < 60 - SS PRN PRN Reason: FS < 60 Docusate Sodium (Colace Cap*) 100 mg PO BID [facility] Last Admin: 04/14/18 08:22 Dose: Not Given Enoxaparin Sodium (Lovenox(*)) 40 mg SUBCUT Q24H [facility] Last Admin: 04/13/18 19:23 Dose: 40 mg Gabapentin (Neurontin Cap(*)) 300 mg PO TID [facility] Last Admin: 04/14/18 14:18 Dose: 300 mg Hydrocortisone (Hytone Cream 1%*) 1 applic TOPICAL QID PRN PRN Reason: ITCHING Last Admin: 04/13/18 11:09 Dose: 1 applic Insulin Glargine (Lantus(*)) 28 units SUBCUT Q24H [facility] Last Admin: 04/14/18 10:16 Dose: 28 units Insulin Human Lispro (Humalog*) 0 - 10 units SUBCUT [facility]; Protocol Last Admin: 04/14/18 16:44 Dose: Not Given Magnesium Hydroxide (Milk Of Magnesia Liq*) 30 ml PO Q6H PRN PRN Reason: CONSTIPATION Magnesium Oxide (Magox 400 Tab*) 400 mg PO DAILY [facility] Last Admin: 04/14/18 08:21 Dose: 400 mg Metoprolol Succinate (Toprol Xl Tab*) 50 mg PO DAILY [facility] Last Admin: 04/14/18 08:20 Dose: 50 mg Nystatin (Nystatin Top Powder*) 1 applic TOPICAL BID [facility] Oxycodone/Acetaminophen (Percocet 5/325 Tab*) 1 tab PO Q4H PRN PRN Reason: PAIN - MODERATE TO SEVERE Last Admin: 04/14/18 01:45 Dose: 1 tab Senna (Senokot Tab*) 2 tab PO BEDTIME PRN PRN Reason: CONSTIPATION Objective: [] Vital Signs Temp Pulse Resp BP Pulse Ox 98.2 F 59 20 129/47 99 04/14/18 15:53 04/14/18 15:53 04/14/18 16:37 04/14/18 15:53 04/14/18 15:53 HEENT - no oral lesions no LAD CTA RRRS 1S2 abd - exam limited by brace Ext w/o edema Labs: Isha neg, 12 501, ESR 27. RF10. LDH 173. UA 6.3 Sat 7%, Ferritin 12.3 WBC 04/11/18 04/12/18 04/14/18 06:58 06:47 06:03 WBC 1.6 10^3/ul L 10^3/ul 1.8 10^3/ul L 10^3/ul 2.6 10^3/ul L 10^3/ul (3.5-10.8) (3.5-10.8) (3.5-10.8) Assessment: []67 year old female with pancytopenia found after fall, now improving. Work up significant for enlarged spleen and iron deficiency. Lymphoma less likely based on full laboratory evaluation. Low blood counts may be secondary to occult liver disease. Plan: []1. Check US of Abdomen 2. Will start oral Iron 3. Given improved blood counts, no bone marrow, follow 4. Check stool occult blood.
[2018-04-14] MEDS: Enoxaparin(*) 40 MG/0.4 ML SYR SUBCUT SCH (19:57)
[2018-04-14] MEDS: Nystatin TOP POWDER* 15 GM BTL TOPICAL SCH (20:01)
[2018-04-15] MEDS: Docusate CAP* 100 MG PO SCH ×2 (09:51→20:34)
[2018-04-15] MEDS: Carbidopa/Levodop 25/100 MG TAB(*) PO SCH ×3 (09:51→20:33)
[2018-04-15] MEDS: Citalopram TAB* 40 MG PO SCH (09:51)
[2018-04-15] MEDS: Insulin GLARGINE(*) 1 UNITS UNIT SUBCUT SCH (09:52)
[2018-04-15] MEDS: Ferrous Sulfate TAB* 325 MG PO SCH (09:52)
[2018-04-15] MEDS: Gabapentin CAP(*) 300 MG PO SCH ×3 (09:52→20:33)
[2018-04-15] MEDS: Metoprolol Succinate XL TAB* 50 MG PO SCH (09:53)
[2018-04-15] MEDS: Magnesium Oxide TAB* 400 MG PO SCH (09:53)
[2018-04-15] MEDS: Nystatin TOP POWDER* 15 GM BTL TOPICAL SCH ×2 (09:53→20:49)
[2018-04-15] MEDS: Insulin LISPRO* 1 UNITS UNIT SUBCUT SCH ×4 (09:54→20:47)
--- NOTE | 2018-04-15 11:57 | PN ---
Progress Note - Progress Note Date of Service: 04/15/18 SOAP: Subjective: [No new complaints. Remains afebrile and progressing well with rehab] Objective: [ Vital Signs: Temp Pulse Resp BP Pulse Ox 97.7 F 62 16 138/66 100 04/15/18 06:42 04/15/18 06:42 04/15/18 09:52 04/15/18 06:42 04/15/18 06:42 Laboratory Results - last 24 hr 04/11/18 04/14/18 04/14/18 06:58 06:03 11:51 WBC 2.6 L RBC 4.16 Hgb 10.8 L Hct 32 L MCV 78 L MCH 26 L MCHC 34 RDW 19 H Plt Count 121 L MPV 7.8 Neut % (Auto) 42.6 Lymph % (Auto) 40.2 [place] % (Auto) 11.7 H Eos % (Auto) 5.2 Baso % (Auto) 0.3 Absolute Neuts (auto) 1.1 L Absolute Lymphs (auto) 1.1 Absolute Monos (auto) 0.3 Absolute Eos (auto) 0.1 Absolute Basos (auto) 0 Absolute Nucleated RBC 0 Nucleated RBC % 0.2 Hem Pathologist Commnt POC Glucose (mg/dL) 151 H Monoscreen Negative 04/14/18 04/14/18 04/15/18 16:30 20:27 07:25 WBC RBC Hgb Hct MCV MCH MCHC RDW Plt Count MPV Neut % (Auto) Lymph % (Auto) [place] % (Auto) Eos % (Auto) Baso % (Auto) Absolute Neuts (auto) Absolute Lymphs (auto) Absolute Monos (auto) Absolute Eos (auto) Absolute Basos (auto) Absolute Nucleated RBC Nucleated RBC % Hem Pathologist Commnt POC Glucose (mg/dL) 113 H 151 H 120 H Monoscreen Acetaminophen (Tylenol Tab*) 650 mg PO Q6H PRN PRN Reason: FEVER/PAIN Last Admin: 04/14/18 11:54 Dose: 650 mg Atorvastatin Calcium (Lipitor*) 40 mg PO 1700 [facility] Last Admin: 04/14/18 16:47 Dose: 40 mg Carbidopa/Levodopa (Sinemet 25/100 Tab(*)) 1 tab PO TID [facility] Last Admin: 04/15/18 09:51 Dose: 1 tab Citalopram Hydrobromide (Celexa Tab*) 40 mg PO DAILY [facility] Last Admin: 04/15/18 09:51 Dose: 40 mg Dextrose (D50w Syringe 50 Ml*) 12.5 gm IV PUSH .FOR FS < 60 - SS PRN PRN Reason: FS < 60 Docusate Sodium (Colace Cap*) 100 mg PO BID [facility] Last Admin: 04/15/18 09:51 Dose: Not Given Enoxaparin Sodium (Lovenox(*)) 40 mg SUBCUT Q24H [facility] Last Admin: 04/14/18 19:57 Dose: 40 mg Ferrous Sulfate (Ferrous Sulfate Tab*) 325 mg PO DAILY [facility] Last Admin: 04/15/18 09:52 Dose: 325 mg Gabapentin (Neurontin Cap(*)) 300 mg PO TID [facility] Last Admin: 04/15/18 09:52 Dose: 300 mg Hydrocortisone (Hytone Cream 1%*) 1 applic TOPICAL QID PRN PRN Reason: ITCHING Last Admin: 04/13/18 11:09 Dose: 1 applic Insulin Glargine (Lantus(*)) 28 units SUBCUT Q24H [facility] Last Admin: 04/15/18 09:52 Dose: 28 units Insulin Human Lispro (Humalog*) 0 - 10 units SUBCUT [facility]; Protocol Last Admin: 04/15/18 09:54 Dose: Not Given Magnesium Hydroxide (Milk Of Magngabrielle Liq*) 30 ml PO Q6H PRN PRN Reason: CONSTIPATION Magnesium Oxide (Magox 400 Tab*) 400 mg PO DAILY [facility] Last Admin: 04/15/18 09:53 Dose: 400 mg Metoprolol Succinate (Toprol Xl Tab*) 50 mg PO DAILY [facility] Last Admin: 04/15/18 09:53 Dose: 50 mg Nystatin (Nystatin Top Powder*) 1 applic TOPICAL BID [facility] Last Admin: 04/15/18 09:53 Dose: 1 applic Oxycodone/Acetaminophen (Percocet 5/325 Tab*) 1 tab PO Q4H PRN PRN Reason: PAIN - MODERATE TO SEVERE Last Admin: 04/14/18 22:24 Dose: 1 tab Senna (Senokot Tab*) 2 tab PO BEDTIME PRN PRN Reason: CONSTIPATION Exam Gen: Well appearing 67 yo female sitting up in a recliner in [facility] with back brace in place HEENT: MMM CV: RRR, difficult exam but no murmurs appreciated Resp: limited exam, no adventitious sounds Ext: trace LE edema Neuro: fine tremor] Assessment: [67 yo female with Parkinson's disease, currently participating in inpatient rehab following a compression fracture. Hematology was consulted for pancytopenia which has been spontaneously improving.] Plan: [1. Pancytopenia - spontaneous improvement - SPEP still pending - likely negative - iron deficient - stool negative for occult blood, oral supplementation started - abd US reviewed - no liver pathology - splenomegaly again noted - consider infectious process, Monospot ordered with reflex to EBV/CMV PCR if neg - cont to follow CBC, but no specific intervention indicated at this time 2. Parkinson's disease 3. Compression fracture]
--- NOTE | 2018-04-15 12:27 | PMRUTEAM ---
PMRU: Team Meeting Current Status: Nursing: Current Status Skin Deviations [right A/C] Bruise,Previous Access Point Skin Deviations [Groin] Rash Skin Deviations [Lower Back] Rash Skin Deviation Description [ old IV removed today compressive dressing in place right A/C] Skin Deviation Description [ red Groin] Skin Deviation Description [ d/t brace Lower Back] Physical Therapy: Current Status Bed Mobility Assistance Independent,Supervision Transfer Moblility Assistance Independent,Supervision Transfer/Bed Mobility Rolling Walker Recommended Devices Ambulation Assistance Independent,Supervision Ambulation Assistive Devices Rolling Walker Number of Feet Patient 150, 300x2 Ambulated Stairs Assistance Independent,Supervision Stairs Recommended Devices Two Rails Number of Stairs 10 Curb Independent,Supervision Curb Assistive Devices Rolling Walker Objective Comments adrienne demonstrates good abitliy in ascent and descent of stiars. is SOB and fatigued with completion. needs increased work on this skill. Occupational Therapy: Current Status Upper Body Dressing Supervision Lower Body Dressing Supervision Bathing Supervision Toileting Supervision Toilet Transfer Supervision Shower Transfer Supervision Eating Independent Instrumental ADL Pt completed meal prep task to take plate with items from refrigerator, pass along counter after cues for correct item retrieval/transport with use of FWW, completed making sandwich in standing at countertop and placed plate back into refrigerator with supervision. Rec Therapy: Current Status Summary of Assessment and RT assessment complete and pt. is aware of RT Clinical Impression services. Provided pt. with word search puzzles which she engages in along with other leisure activities in her room. Treatment Goals Pt. will engage in leisure activities while on the unit. Treatment Plan Provide RT services and encourage involvement. Social Work: Current Status Discharge Plan return home with home care svs and family support Potential for Family Training TBD Anticipated Discharge Home Destination Discharge With home care svs and family support Goals: Physical Therapy: Initial Goals Bed Mobility Assistance Independent Transfer Mobility Assistance Independent Transfer/Bed Mobility Rolling Walker Recommended Devices Ambulation Independent Ambulation Recommended Devices Rolling Walker Ambulation Distance 150 Stairs Assistance Independent Stair Recommended Devices Two Rails Number of Stairs 6 Physical Therapy: Updated Goals Transfer/Bed Mobility Rolling Walker Recommended Devices Occupational Therapy: Initial Goals Goals to be Completed in (Days 7-10 ) Upper Body Bathing Routine Independent Lower Body Bathing Routine Modified Independent with Upper Body Dressing Routine Modified Independent with Lower Body Dressing Routine Modified Independent with Toilet Hygeine and Clothing Modified Independent with Management Routine Toilet Transfer Routine Modified Independent with Tub Transfer Routine Modified Independent with Functional Transfers for ADL Modified Independent with Grooming Routine Independent Feeding Routine Independent Social Work: Goals Discharge Plan return home with home care svs and family support Potential for Family Training TBD Anticipated Discharge Home Destination Discharge With home care svs and family support Care Plan: Care Plan ADL's - Improve/Maintain Start: 04/09/18 14:50 Freq: DAILY Status: Active Target: Protocol: Activity Type Activity Date Activity User E-Sign Co-Sign Detail Recorded Client Recorded Date Recorded By Document 04/14/18 11:58 [id number] 04/14/18 11:58 [id number] 04/14/18 11:58 PMRU Outcome: ADL's/ADL Transfers Orders/Interventions Occupational Therapy Evaluation & Treatment Communication Tool in Patient Room Device Yes Address Deficits Secondary To: T7-T8 compression fx, h/o Parkinson' s Patient to receive OT 5x/wk for 60-120 Therex min/day Self Care Management Group Therapy UE/LE ADL's with Assist Yes: Kelli ADL Transfers with Assist Yes: Kelli Toileting: Transfers,Clothing Management Yes: Kelli ,Hygeine w/Assist Progression Toward Outcome/Goals Progressing Outcome/Goals Met Pt participated well in ADL treatment session, able to complete all tasks with supervision this date. Pt initially resistant to increasing AE/ DME use at home , however now appears to be agreeable. DVT Prophylaxis- Improve/Maintain Start: 04/09/18 12:57 Freq: QSHIFT Status: Active Target: Protocol: Activity Type Activity Date Activity User E-Sign Co-Sign Detail Recorded Client Recorded Date Recorded By Document 04/15/18 00:04 [id number] [id number] 04/15/18 00:05 [id number] 04/15/18 00:04 PMRU Outcome: DVT Prophylaxis Outcome/Goals Remains Free of DVT Complies with DVT Prophylaxis /Treatment TEDS Stockings on Every AM, Off at HS Other Outcome/Goals refusing FELY's Progression Toward Outcome/Goals Not Progressing Discharge Planning - Improve/Maintain Start: 04/09/18 12:57 Freq: DAILY Status: Active Target: Protocol: Activity Type Activity Date Activity User E-Sign Co-Sign Detail Recorded Client Recorded Date Recorded By Document 04/15/18 00:05 [id number] 04/15/18 00:05 [id number] 04/15/18 00:05 PMRU Outcome: Discharge Planning Update Patient Family No Outcome/Goals Demonstrates Understanding of Discharge Plan Progression Toward Outcome/Goals Progressing Education-Improve/Maintain Start: 04/09/18 12:57 Freq: QSHIFT Status: Active Target: Protocol: Activity Type Activity Date Activity User E-Sign Co-Sign Detail Recorded Client Recorded Date Recorded By Document 04/15/18 00:04 [id number] 04/15/18 00:05 [id number] 04/15/18 00:04 PMRU Outcome: Education Outcome/Goals Demonstrates Skills Encourage Questions Progression Toward Outcome/Goals Progressing /GI-Improve/Maintain Start: 04/09/18 12:57 Freq: QSHIFT Status: Active Target: Protocol: Activity Type Activity Date Activity User E-Sign Co-Sign Detail Recorded Client Recorded Date Recorded By Document 04/15/18 00:04 [id number] 04/15/18 00:05 [id number] 04/15/18 00:04 PMRU Outcome: Genitourinary/ Gastrointestinal Genitourinary- Outcome/Goals Maintain/ Achieve Urinary Continence Maintain/ Achieve Adequate Urinary Output Remain Free of Hospital- Acquired UTI Gastrointestinal-Outcome/Goals Maintain/ Achieve Bowel Regularity in Accordance with Pt's Baseline Prevent Constipation Laxatives as Ordered Progression Toward Outcome/Goals - Progressing Progression Toward Outcome/Goals - GI Progressing Medication Administration Start: 04/09/18 12:57 Freq: QSHIFT Status: Active Target: Protocol: Activity Type Activity Date Activity User E-Sign Co-Sign Detail Recorded Client Recorded Date Recorded By Document 04/15/18 00:04 [id number] 04/15/18 00:05 [id number] 04/15/18 00:04 PMRU Outcome: Medication Administration Assess Patient Knowledge/Teach Med Yes Education for all Meds Outcome/Goals Patient Independent with Medication Administration at Home Demonstrates Understanding Progression Towards Outcome/Goals Progressing Is Patient Going Home on Lovenox? No Metabolic Status- Improve/Maintain Start: 04/09/18 12:57 Freq: QSHIFT Status: Active Target: Protocol: Activity Type Activity Date Activity User E-Sign Co-Sign Detail Recorded Client Recorded Date Recorded By Document 04/15/18 00:04 [id number] [email or web address] 04/15/18 00:05 [id number] 04/15/18 00:04 PMRU Outcome: Metabolic Status Have Fingersticks Been Ordered Yes Fingerstick Order Frequency AC & HS Outcome/Goals Maintain/ Improve Metabolic Status Demonstrate Knowledge of Prevention/ Treatment of Metabolic Imbalances Progression Toward Outcome/Goals Progressing Neurological- Improve/Maintain Start: 04/09/18 12:57 Freq: QSHIFT Status: Active Target: Protocol: Activity Type Activity Date Activity User E-Sign Co-Sign Detail Recorded Client Recorded Date Recorded By Document 04/15/18 00:04 [id number] 04/15/18 00:05 [id number] 04/15/18 00:04 PMRU Outcome: Neurological Weakness/Aphasia Weakness Outcome/Goals Maintain/ Achieve Baseline Neurological Status Improve Neurological Status Maintain/ Improve Strength/ROM Progression Toward Outcome/Goals Progressing Pain/Comfort- Improve/Maintain Start: 04/09/18 12:57 Freq: QSHIFT Status: Active Target: Protocol: Activity Type Activity Date Activity User E-Sign Co-Sign Detail Recorded Client Recorded Date Recorded By Document 04/15/18 00:04 [id number] 04/15/18 00:05 [id number] 04/15/18 00:04 PMRU Outcome: Pain/Comfort Outcome/Goals Demonstrates Knowledge and Use of Available Comfort Measures Achieves Acceptable Comfort/Pain Level as Determined by Patient/Condit Maintain Comfort Level Allowing Patient to Fully Participate in Rehab Progression Toward Outcome/Goals Progressing Outcome/Goals Met Comment pt resting at this time Safety- Improve/Maintain Start: 04/09/18 12:57 Freq: QSHIFT Status: Active Target: Protocol: Activity Type Activity Date Activity User E-Sign Co-Sign Detail Recorded Client Recorded Date Recorded By Document 04/15/18 00:04 [id number] [email or web address] 04/15/18 00:05 [id number] 04/15/18 00:04 PMRU Outcome: Safety Outcome/Goals Remain Free of Injury or Harm Cooperates with Safety Measures for Least Restrictive Environment Prevent Falls/ Injury Progression Toward Outcome/Goals Progressing Outcome/Goals Met Comment BA armed Medicine Note: Length of Stay: 2 days Anticipated Discharge Destination: Home Tentative Discharge Date: 04/17/18 Discharged to: Home
[2018-04-15] MEDS: oxyCODONE/Acetamin 5/325 MG* TAB PO PRN ×2 (15:44→19:48)
[2018-04-15] MEDS: Atorvastatin* 40 MG TAB PO SCH (16:47)
--- NOTE | 2018-04-15 19:18 | PN ---
Progress Note Date of Service: 04/15/18 Note: RON TOMLINSON was visited. Therapy notes read and reviewed. She was discussed in interdisciplinary team rounds. She has made gains. Appreciate hematology note. She had a sono today showing splenomegaly and her counts have rebounded. Will order a CBC for tomorrow. Current Medications: Active Medications Generic Name Dose Route Start Last Admin Trade Name Freq PRN Reason Stop Dose Admin Acetaminophen 650 mg 04/09/18 12:18 04/14/18 11:54 Tylenol Tab* PO 650 mg Q6H PRN Administration FEVER/PAIN Atorvastatin Calcium 40 mg 04/10/18 17:00 04/15/18 16:47 Lipitor* PO 40 mg 1700 KAYCEE Administration Carbidopa/Levodopa 1 tab 04/09/18 14:00 04/15/18 14:45 Sinemet 25/100 Tab(*) PO 1 tab TID KAYCEE Administration Citalopram Hydrobromide 40 mg 04/10/18 09:00 04/15/18 09:51 Celexa Tab* PO 40 mg DAILY KAYCEE Administration Dextrose 12.5 gm 04/09/18 12:38 D50w Syringe 50 Ml* IV PUSH .FOR FS < 60 - SS PRN FS < 60 Docusate Sodium 100 mg 04/09/18 21:00 04/15/18 09:51 Colace Cap* PO Not Given BID KAYCEE Enoxaparin Sodium 40 mg 04/09/18 20:00 04/14/18 19:57 Lovenox(*) SUBCUT 40 mg Q24H KAYCEE Administration Ferrous Sulfate 325 mg 04/15/18 09:00 04/15/18 09:52 Ferrous Sulfate Tab* PO 325 mg DAILY KAYCEE Administration Gabapentin 300 mg 04/09/18 14:00 04/15/18 14:44 Neurontin Cap(*) PO 300 mg TID KAYCEE Administration Hydrocortisone 1 applic 04/12/18 13:52 04/13/18 11:09 Hytone Cream 1%* TOPICAL 1 applic QID PRN Administration ITCHING Insulin Glargine 28 units 04/11/18 09:00 04/15/18 09:52 Lantus(*) SUBCUT 28 units Q24H KAYCEE Administration Insulin Human Lispro 0 - 10 units 04/09/18 16:30 04/15/18 16:16 Humalog* SUBCUT Not Given ACHS KAYCEE Protocol Magnesium Hydroxide 30 ml 10/31/18 12:18 Milk Of Magnesia Liq* PO Q6H PRN CONSTIPATION Magnesium Oxide 400 mg 04/13/18 09:00 04/15/18 09:53 Magox 400 Tab* PO 400 mg DAILY KAYCEE Administration Metoprolol Succinate 50 mg 04/10/18 09:00 04/15/18 09:53 Toprol Xl Tab* PO 50 mg DAILY KAYCEE Administration Nystatin 1 applic 04/14/18 21:00 04/15/18 09:53 Nystatin Top Powder* TOPICAL 1 applic BID KAYCEE Administration Oxycodone/Acetaminophen 1 tab 04/09/18 12:31 04/15/18 15:44 Percocet 5/325 Tab* PO 1 tab Q4H PRN Administration PAIN - MODERATE TO SEVERE Senna 2 tab 04/09/18 12:18 Senokot Tab* PO BEDTIME PRN CONSTIPATION Vital Signs: Vital Signs Temp Pulse Resp BP Pulse Ox 98.0 F 65 20 137/50 97 04/15/18 16:04 04/15/18 16:04 04/15/18 18:11 04/15/18 16:04 04/15/18 16:04 Lab Results: Laboratory Results - last 24 hr 04/11/18 04/14/18 04/14/18 17:24 06:03 20:27 WBC 2.6 L RBC 4.16 Hgb 10.8 L Hct 32 L MCV 78 L MCH 26 L MCHC 34 RDW 19 H Plt Count 121 L MPV 7.8 Neut % (Auto) 42.6 Lymph % (Auto) 40.2 Patrick % (Auto) 11.7 H Eos % (Auto) 5.2 Baso % (Auto) 0.3 Absolute Neuts (auto) 1.1 L Absolute Lymphs (auto) 1.1 Absolute Monos (auto) 0.3 Absolute Eos (auto) 0.1 Absolute Basos (auto) 0 Absolute Nucleated RBC 0 Nucleated RBC % 0.2 POC Glucose (mg/dL) 151 H Total Protein (PEP) 6.2 L Albumin (PEP) 2.9 L Albumin/Globulin (PEP) 0.89 Kupjk-3-Hhmnqzwci 0.3 Lgzrl-6-Tswajkjyb 0.8 Fjkr-6-Kfwvpkxr 1.2 Gamma Globulins 1.0 PEP Impression See comment Monoscreen Negative 1104/15/18 04/15/18 07:25 12:00 16:10 WBC RBC Hgb Hct MCV MCH MCHC RDW Plt Count MPV Neut % (Auto) Lymph % (Auto) Patrick % (Auto) Eos % (Auto) Baso % (Auto) Absolute Neuts (auto) Absolute Lymphs (auto) Absolute Monos (auto) Absolute Eos (auto) Absolute Basos (auto) Absolute Nucleated RBC Nucleated RBC % POC Glucose (mg/dL) 120 H 205 H 105 H Total Protein (PEP) Albumin (PEP) Albumin/Globulin (PEP) Kxrez-2-Jjgffcvcl Bsurg-4-Hoiwaauca Oubp-3-Bvabntuj Gamma Globulins PEP Impression Monoscreen Exam: GENERAL: No acute distress. Alert and appropriate. LUNGS: Clear to auscultation bilaterally HEART: regular rate and rhythm ABDOMEN: Soft, +BS, non-tender, non-distended EXTREMITIES: resting tremor in arms. No edema. NEUROLOGIC: Muscle strength 5/5 in BLE with normal sensation. Assessment/Plan: 1. T7 and T8 fractures: PT/OT. TLSO when OOB. 2. Parkinson's Disease: Sinemet TID. PT/OT. 3. IDDM: Lantus 28 units daily. Lispro SSi 4. Diabetic peripheral neuropathy: Gabapentin 5. DVT Prophylaxis: Lovenox S/Q 6. Advanced Directives: DNR. Has MOLST 7. Pancytopenia: Oncology, Dr. Melendez, following. No need for BM biopsy. No longer neutropenic. Recheck CBC in am 8. Hypokalemia/Hypomagnesemia: Mg 400mg qday. 9. Estimated LOS: 04/17/18. 04/15/18 19:19
[2018-04-15] MEDS: Enoxaparin(*) 40 MG/0.4 ML SYR SUBCUT SCH (19:49)
[2018-04-16] MEDS: oxyCODONE/Acetamin 5/325 MG* TAB PO PRN ×4 (00:15→20:29)
[2018-04-16] MEDS: Acetaminophen TAB* 325 MG PO PRN ×3 (03:14→23:29)
[2018-04-16 06:51] LABS: ABS Basophils 0 10^3/ul (0-0.2); ABS Eosinophils 0.1 10^3/ul (0-0.6); ABS Lymphocytes 1.2 10^3/ul (1.0-4.8); ABS Monocytes 0.2 10^3/ul (0-0.8); ABS Neutrophils 1.1 10^3/ul (1.5-7.7); ABS Nucleated RBC 0 10^3/ul; Eosinophil % 4.4 % (0-6); Hematocrit 34 % (35-47); Hemoglobin 11.1 g/dl (12.0-16.0); Mean Corpuscular HGB Conc 33 g/dl (31-36); Mean Corpuscular Hemoglobin 26 pg (27-31); Mean Corpuscular Volume 78 fL (80-97); Mean Platelet Volume 8.2 fL (7.4-10.4); Nucleated Red Blood Cells % 0.1; Platelet Count 145 10^3/ul (150-450); Red Blood Count 4.35 10^6/ul (4.00-5.40); Red Cell Distribution Width 19 % (10.5-15); White Blood Count 2.6 10^3/ul (3.5-10.8)
[2018-04-16] MEDS: Metoprolol Succinate XL TAB* 50 MG PO SCH (07:40)
[2018-04-16] MEDS: Ferrous Sulfate TAB* 325 MG PO SCH (07:40)
[2018-04-16] MEDS: Nystatin TOP POWDER* 15 GM BTL TOPICAL SCH ×2 (07:40→20:52)
[2018-04-16] MEDS: Magnesium Oxide TAB* 400 MG PO SCH (07:41)
[2018-04-16] MEDS: Carbidopa/Levodop 25/100 MG TAB(*) PO SCH ×3 (07:41→20:50)
[2018-04-16] MEDS: Docusate CAP* 100 MG PO SCH ×2 (07:41→20:50)
[2018-04-16] MEDS: Citalopram TAB* 40 MG PO SCH (07:41)
[2018-04-16] MEDS: Gabapentin CAP(*) 300 MG PO SCH ×3 (07:41→20:50)
[2018-04-16] MEDS: Insulin LISPRO* 1 UNITS UNIT SUBCUT SCH ×4 (07:46→20:49)
[2018-04-16] MEDS: Insulin GLARGINE(*) 1 UNITS UNIT SUBCUT SCH (08:31)
[2018-04-16] MEDS: Atorvastatin* 40 MG TAB PO SCH (16:30)
--- NOTE | 2018-04-16 18:49 | PN ---
Progress Note Date of Service: 04/16/18 Note: RON TOMLINSON was visited. Therapy notes read and reviewed. She seems to be moving well. Her blood counts were stable: Hb/Hct improving, ANC about the same. Current Medications: Active Medications Generic Name Dose Route Start Last Admin Trade Name Freq PRN Reason Stop Dose Admin Acetaminophen 650 mg 04/09/18 12:18 04/16/18 12:28 Tylenol Tab* PO 650 mg Q6H PRN Administration FEVER/PAIN Atorvastatin Calcium 40 mg 04/10/18 17:00 04/16/18 16:30 Lipitor* PO 40 mg 1700 KAYCEE Administration Carbidopa/Levodopa 1 tab 04/09/18 14:00 04/16/18 14:55 Sinemet 25/100 Tab(*) PO 1 tab TID KAYCEE Administration Citalopram Hydrobromide 40 mg 04/10/18 09:00 04/16/18 07:41 Celexa Tab* PO 40 mg DAILY KAYCEE Administration Dextrose 12.5 gm 04/09/18 12:38 D50w Syringe 50 Ml* IV PUSH .FOR FS < 60 - SS PRN FS < 60 Docusate Sodium 100 mg 04/09/18 21:00 04/16/18 07:41 Colace Cap* PO 100 mg BID KAYCEE Administration Enoxaparin Sodium 40 mg 04/09/18 20:00 04/15/18 19:49 Lovenox(*) SUBCUT 40 mg Q24H KAYCEE Administration Ferrous Sulfate 325 mg 04/15/18 09:00 04/16/18 07:40 Ferrous Sulfate Tab* PO 325 mg DAILY KAYCEE Administration Gabapentin 300 mg 04/09/18 14:00 04/16/18 14:54 Neurontin Cap(*) PO 300 mg TID KAYCEE Administration Hydrocortisone 1 applic 04/12/18 13:52 04/13/18 11:09 Hytone Cream 1%* TOPICAL 1 applic QID PRN Administration ITCHING Insulin Glargine 30 units 04/16/18 18:41 Lantus(*) SUBCUT Q24H KAYCEE Insulin Human Lispro 0 - 10 units 04/09/18 16:30 04/16/18 17:11 Humalog* SUBCUT 2 units ACHS KAYCEE Administration Protocol Magnesium Hydroxide 30 ml 04/09/18 12:18 Milk Of Magnesia Liq* PO Q6H PRN CONSTIPATION Magnesium Oxide 400 mg 04/13/18 09:00 04/16/18 07:41 Magox 400 Tab* PO 400 mg DAILY KAYCEE Administration Metoprolol Succinate 50 mg 04/10/18 09:00 04/16/18 07:40 Toprol Xl Tab* PO 50 mg DAILY KAYCEE Administration Nystatin 1 applic 04/14/18 21:00 04/16/18 07:40 Nystatin Top Powder* TOPICAL 1 applic BID KAYCEE Administration Oxycodone/Acetaminophen 1 tab 04/09/18 12:31 04/16/18 15:42 Percocet 5/325 Tab* PO 1 tab Q4H PRN Administration PAIN - MODERATE TO SEVERE Senna 2 tab 04/09/18 12:18 Senokot Tab* PO BEDTIME PRN CONSTIPATION Vital Signs: Vital Signs Temp Pulse Resp BP Pulse Ox 97.8 F 57 16 125/59 100 04/16/18 16:20 04/16/18 16:20 04/16/18 17:13 04/16/18 16:20 04/16/18 16:20 Lab Results: Laboratory Results - last 24 hr 04/15/18 04/16/18 04/16/18 20:21 06:10 07:40 WBC 2.6 L RBC 4.35 Hgb 11.1 L Hct 34 L MCV 78 L MCH 26 L MCHC 33 RDW 19 H Plt Count 145 L MPV 8.2 Neut % (Auto) 41.5 Lymph % (Auto) 44.0 [place] % (Auto) 9.5 H Eos % (Auto) 4.4 Baso % (Auto) 0.6 Absolute Neuts (auto) 1.1 L Absolute Lymphs (auto) 1.2 Absolute Monos (auto) 0.2 Absolute Eos (auto) 0.1 Absolute Basos (auto) 0 Absolute Nucleated RBC 0 Nucleated RBC % 0.1 POC Glucose (mg/dL) 133 H 115 H 04/16/18 04/16/18 12:15 16:30 WBC RBC Hgb Hct MCV MCH MCHC RDW Plt Count MPV Neut % (Auto) Lymph % (Auto) [place] % (Auto) Eos % (Auto) Baso % (Auto) Absolute Neuts (auto) Absolute Lymphs (auto) Absolute Monos (auto) Absolute Eos (auto) Absolute Basos (auto) Absolute Nucleated RBC Nucleated RBC % POC Glucose (mg/dL) 157 H 183 H Exam: GENERAL: No acute distress. Alert and appropriate. LUNGS: Clear to auscultation bilaterally HEART: regular rate and rhythm ABDOMEN: Soft, +BS, non-tender, non-distended EXTREMITIES: resting tremor in arms. No edema. NEUROLOGIC: Muscle strength 5/5 in BLE with normal sensation. Assessment/Plan: 1. T7 and T8 fractures: PT/OT. TLSO when OOB. 2. Parkinson's Disease: Sinemet TID. PT/OT. 3. IDDM: Lantus 30 units daily. Lispro SSi 4. Diabetic peripheral neuropathy: Gabapentin 5. DVT Prophylaxis: Lovenox S/Q 6. Advanced Directives: DNR. Has MOLST 7. Pancytopenia: Oncology, Dr. Melendez, following. No need for BM biopsy. No longer neutropenic. 8. Hypomagnesemia: Mg 400mg qday. 9. Estimated LOS: 04/17/18. 04/16/18 18:49
[2018-04-16] MEDS: Enoxaparin(*) 40 MG/0.4 ML SYR SUBCUT SCH (20:47)
[2018-04-17] MEDS: oxyCODONE/Acetamin 5/325 MG* TAB PO PRN ×2 (01:28→08:33)
[2018-04-17 06:57] VITALS: BP 155/71
[2018-04-17] MEDS: Carbidopa/Levodop 25/100 MG TAB(*) PO SCH (07:35)
[2018-04-17] MEDS: Docusate CAP* 100 MG PO SCH (07:35)
[2018-04-17] MEDS: Gabapentin CAP(*) 300 MG PO SCH (07:36)
[2018-04-17] MEDS: Ferrous Sulfate TAB* 325 MG PO SCH (07:36)
[2018-04-17] MEDS: Citalopram TAB* 40 MG PO SCH (07:38)
[2018-04-17] MEDS: Magnesium Oxide TAB* 400 MG PO SCH (07:39)
[2018-04-17] MEDS: Metoprolol Succinate XL TAB* 50 MG PO SCH (07:39)
[2018-04-17] MEDS: Nystatin TOP POWDER* 15 GM BTL TOPICAL SCH (09:00)
[2018-04-17] MEDS ORDERED: Insulin GLARGINE(*) 1 UNITS UNIT SUBCUT SCH (09:00)
[2018-04-17] MEDS: Insulin LISPRO* 1 UNITS UNIT SUBCUT SCH (10:10)
--- NOTE | 2018-04-18 15:11 | DS ---
CC: Dr. Suggs at [facility]; Dr. Kiko Melendez DISCHARGE SUMMARY: DATE OF ADMISSION: 04/09/18 DATE OF DISCHARGE: 04/17/18 DISCHARGE DIAGNOSES: 1. T7 and T8 fracture. 2. Parkinson's disease. 3. Pancytopenia. 4. Diabetes mellitus. 5. Diabetic peripheral neuropathy. 6. Hypokalemia. 7. Hypomagnesemia. HISTORY OF ILLNESS AND HOSPITAL COURSE: For complete history of the events leading up to her rehab stay, please see the history and physical dictated by me on 04/09/18. While on the rehab unit, on a routine blood draw on 04/11/18, the patient was found to have an absolute neutrophil count of 500. A stat hematology consult was ordered with Dr. Melendez and the patient was put on neutropenic precautions. The patient was noted not only to be neutropenic but to be pancytopenic with low hemoglobin and hematocrit level as well as a low platelet count. Dr. Melendez felt the patient may need a bone marrow biopsy. He did order additional blood work. By 04/12/18, her absolute neutrophil count was up to 600 and by 04/14/18 it was 1100. Neutropenia precautions were discontinued. Her hemoglobin and hematocrit paxton slightly from 10.3 and 32 to 10.8 and 32. Her white blood cells paxton from 1.6 to 2.6. Her platelets went from 95,000 to 121,000. By April 16, her platelets were 145,000, hemoglobin was 11.1, hematocrit 34, and white blood cells remained at 2.6. Dr. Melendez felt a bone marrow biopsy was no longer necessary as her cell lines seemed to be recovering. He did think that she would need followup with Hematology/ Oncology. He did recommend starting her on iron supplements. The workup did reveal an enlarged spleen. The patient was otherwise medically stable. Her pain was well controlled with oral analgesics. The patient's Parkinson's symptoms were fairly well controlled. She was seen by both Physical and Occupational Therapy and made good gains with both disciplines. With physical therapy at the time of admission, the patient required contact guard to do a transfer, she was able to ambulate 120 feet with contact guard. With occupational therapy at the time of admission, the patient required min assist for upper body dressing, mod assist for lower body dressing, contact guard to min assist for toilet transfer and toileting. By the time of discharge, she was independent in transfers, independent ambulating 300 feet, independently going up and down a flight of stairs with one rail, independent in bathing and dressing herself, independent in toileting and toilet transfers. She was discharged home on 04/17/18. DISCHARGE DIET: Consistent carbohydrate. DISCHARGE MEDICATIONS: 1. Lipitor 40 mg daily. 2. Sinemet 25/100 one tablet 3 times a day. 3. Celexa 40 mg daily. 4. Neurontin 300 mg 3 times daily. 5. Lantus insulin 30 units subcutaneously every 24 hours. 6. Toprol-XL 50 mg daily. 7. Percocet 1 tablet every 4 hours as needed. 8. Ferrous sulfate 325 mg daily. 9. Apidra SoloStar 3 times daily with meals as directed. 10. Vitamin B12 at 1000 mcg IM every 30 days. SERVICES AFTER DISCHARGE: Through visiting nurse service, she will have home nursing, home physical therapy, home occupational therapy, and a home health aide. Follow up with her primary care doctor Dr. Joanne Suggs as well as with the oncologist Dr. Kiko Melendez. TIME SPENT: Time for this discharge was approximately 55 minutes, greater than half of which was spent with the patient explaining post-rehab therapies, pain medications and follow up. [id number]/[facility] #: [id number] CAROL
== END 2018-04-17 12:00 | disposition home health service (06) | DRG 860 ==
LOC: PMRU 10:32
PROVIDERS: ADMIT Physical Medicine & Rehabilitation; ATTEND Physical Medicine & Rehabilitation
PROC: F07Z5ZZ Bed Mobility Treatment (ICD-10-PCS; principal; 2018-04-09)
PROC: F07Z9ZZ Gait Training/Functional Ambulation Treatment (ICD-10-PCS; 2018-04-09)
PROC: F07Z8ZZ Transfer Training Treatment (ICD-10-PCS; 2018-04-09)
PROC: F08Z0ZZ Bathing/Showering Techniques Treatment (ICD-10-PCS; 2018-04-09)
PROC: F08Z1ZZ Dressing Techniques Treatment (ICD-10-PCS; 2018-04-09)
PROC: F08Z3ZZ Feeding/Eating Treatment (ICD-10-PCS; 2018-04-09)
DX: S22.069D Unspecified fracture of T7-T8 vertebra, subsequent encounter for fracture with routine healing (principal); D61.818 Other pancytopenia; E11.42 Type 2 diabetes mellitus with diabetic polyneuropathy; G20 Parkinson's disease; E83.42 Hypomagnesemia; E11.319 Type 2 diabetes mellitus with unspecified diabetic retinopathy without macular edema; I11.9 Hypertensive heart disease without heart failure; I25.10 Atherosclerotic heart disease of native coronary artery without angina pectoris; Z66 Do not resuscitate; E03.9 Hypothyroidism, unspecified; E87.6 Hypokalemia; M45.9 Ankylosing spondylitis of unspecified sites in spine; E78.5 Hyperlipidemia, unspecified; M19.90 Unspecified osteoarthritis, unspecified site; W18.09XD Striking against other object with subsequent fall, subsequent encounter; Z79.899 Other long term (current) drug therapy; Z79.4 Long term (current) use of insulin; Z95.5 Presence of coronary angioplasty implant and graft; Z82.49 Family history of ischemic heart disease and other diseases of the circulatory system; Z83.3 Family history of diabetes mellitus; K59.00 Constipation, unspecified
CPT/HCPCS: 36415; 76700; 80048; 80053; 82272; 82607; 82728; 83540; 83550; 83615; 83735; 84155; 84165; 84550; 85025; 85045; 85060; 85652; 86308; 86431; 86880; 99223; 99232; A9270-GY; J1650

== ENCOUNTER 2018-12-09 12:27 | Emergency (ER) | payer BC, MEDICARE ==
--- OUTSIDE RECORDS SUMMARY | 2018-12-09 12:36 | XMS REPORT | Continuity of Care Document ---
:1950 External Reference #:[id number] Author Name Yuan Mcdonald Care Team Providers Name Role Phone Joanne Suggs MD Primary Care Physician Unavailable Payers Date Identification Numbers Payment Provider Subscriber Effective: 2010 Policy Number: [id number] [employer] Sulma Palacios PayID: [id number] [address] [address] [place] [address] Policy Number: [id number] Medicare Sulma Palacios PayID: [id number] [address] [place] [address] Policy Number: [id number] [facility] Sulma Palacios PayID: [id number] [address] [place] [address] Expires: 2016 Policy Number: [id number] [facility] Sulma Palacios Onset: 2015 Group Number: [id number] [address] [address] Group Name: [phone] [place] [address] PayID: [id number] Effective: 2018 Policy Number: [facility] Sulma Palacios [id number] Onset: 2018 PayID: [id number] [address] [address] [place] [address] Problems Active Problems Provider Date Chronic ischemic heart disease Rob Pedroza M.D., [facility], Onset: 2013 FASNC Atherosclerotic heart disease of Rob Pedroza M.D., [facility], Onset: 2014 [place] coronary artery without FASNC angina pectoris Current tear of medial cartilage Vida Fuentes M.D. Onset: 10/24/2015 AND/OR meniscus of knee Localized, primary osteoarthritis Vida Fuentes M.D. Onset: 01/18/2016 Trochanteric bursitis Vida Fuentes M.D. Onset: 04/06/2016 Parkinson's disease Rashid Andrade MD Onset: 04/25/2016 Diabetic peripheral neuropathy Rashid Andrade MD Onset: 04/25/2016 associated with type 2 diabetes mellitus Cobalamin deficiency Rashid Andrade MD Onset: 08/06/2016 Insomnia Rashid Andrade MD Onset: 02/14/2018 Abnormal gait Rashid Andrade MD Onset: 03/31/2018 Low back pain Yvon Lin M.D. Onset: 04/03/2018 Anxiety state Yvon Lin M.D. Onset: 04/03/2018 Type 2 diabetes mellitus Yvon Lin M.D. Onset: 04/03/2018 Essential hypertension Yvon Lin M.D. Onset: 04/03/2018 Hyperlipidemia Yvon Lin M.D. Onset: 04/06/2018 Major depressive disorder, single Yvon Lin M.D. Onset: 04/06/2018 episode, unspecified Long-term current use of insulin Yvon Lin M.D. Onset: 04/07/2018 Type 2 diabetes mellitus with Oswald Garcia MD Onset: 04/09/2018 diabetic neuropathy, unspecified Polyneuropathy Randy Nogueira M.D. 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 per 01/11/17 visit Smoking Status Reviewed: 11/26/18 smoke exposed to second hand smoke. per 01/11/17 visit Exercise Type/Frequency Exercises rarely Allergies, Adverse Reactions, Alerts Active Allergies Reaction Severity Comments Date No Known Drug Allergy 05/03/2010 Medications Active Medications SIG Qnty Indications Ordering Provider Date Carbidopa-Levodopa 2 pills three 180tabs G20 Randy Nogueira, 11/26/2018 times a day, 30 M.D. 25-100mg Tablets min prior to meals Carbidopa-Levodopa ER 1 by mouth at 30tabs G20 Randy Nogueira, 2018 bedtime M.D. 50-200mg Tablets ER Gabapentin take one Rashid Andrade MD 06/10/2018 400mg capsule by Capsules mouth 2 times a day Atorvastatin Calcium 1 by mouth 90tabs Rob Pedroza, 04/15/2015 every day M.D., FACC, FASNC 40mg Tablets Aspirin Adult Low Takes 1 po Rob Pedroza, 04/12/2014 Strength daily per M.D., FACC, FASNC 81mg Chewtabs patient-pt only takes prn Nitroglycerin one spray under 1units I25.9 Rob Pedroza, 04/12/2014 tongue if chest M.D., FACC, FASNC 0.4mg/[place] Solution pain and may repeat up to 2 times every 5 minutes. call 911 if chest pain after 3 sprays Metoprolol Tartrate 1 qd 270tabs Rob Pedroza, 01/08/2013 M.D., FACC, FASNC 50mg Tablets Benadryl Allergy 1tabs @ onset Unknown 25mg of allergy Tablets issue Melatonin 1 tab by mouth Unknown 10mg Capsules at bedtime Acetaminophen 1-2 tabs 3x a Unknown 500mg day as needed Tablets Vitamin B-12 1 tablet daily Unknown 1000mcg Tablets Citalopram 1 po qd Unknown Hydrobromide 40mg Tablets Apidra sliding scale Unknown 100Unit/ML Solution Lantus 32 units SQ in 3vials Unknown 100Unit/ML A.M. Solution History Medications Carbidopa-Levodopa 1.5 pills 405tabs G20 Randy 08/20/2018 - 25-100mg three times a Jero, M.D. 11/26/2018 Tablets day 30 min prior to meals Gabapentin take one Rashid Andrade, 06/11/2018 - 400mg Capsules capsule by 06/11/2018 mouth 3 times a day Gabapentin 3 pills bid. 180caps Rashid Andrade, 02/14/2018 - 100mg Capsules 06/11/2018 Carbidopa-Levodopa Take 1 Tablet 270tabs G20 Rashid Andrade, 04/25/2016 - 25-100mg Three Times A 08/20/2018 Tablets Day Aspirin one by mouth 20tabs S83.231A Monika 01/04/2016 - 325mg Tablets twice a day LORENA Guidry 01/24/2016 for 10 days to prevent blood clots Colace 1 by mouth up 90caps S83.231A Monika 01/04/2016 - 100mg Capsules to 3 times a LORENA Guidry 01/24/2016 day as needed for constipation. Percocet 1-2 tablets 90tabs S83.231A Vida Fuentes 01/04/2016 - 5-325mg Tablets by mouth M.D. 03/25/2016 every 8 hours as needed for pain Percocet take 1 tabs 30tabs S83.231A Levy Sapp MD 10/07/2015 - 5-325mg Tablets as needed for 04/25/2016 pain every day. do not combine with tylenol Vinaayk take 1 tabs 30tabs Taiwo Newsome, 07/15/2015 - 5-325mg Tablets every 6 hours M.D. 01/24/2016 as needed pain Diclofenac Sodium 1 by mouth 90tabs Levy Sapp MD 07/11/2015 - 75mg twice a day 01/24/[address] Licea 1-2 tablets 30tabs Monika 06/27/2015 - 5-325mg Tablets by mouth LORENA Guidry 01/24/2016 every 4-6 hours as needed for pain. Potassium Bitartrate 2 by mouth Rob Stuart 04/12/2014 - Powder every day Félix Pedroza, 04/09/2014 MARQUIS SMILEY Aspirin Childrens Rob Stuart 04/12/2014 - 81mg Félix Pedroza, 04/12/2014 Chewtabs FACC, FASNC Valsartan-Hydrochlorothi 1 by mouth 90tabs Robyahir Stuart 12/07/2013 - azide every day Félix Pedroza, 02/25/2015 320-25mg Tablets FACC, FASNC Valsartan/Hydrochlorothi 1 po qd 90tabs Robyahir Stuart 12/12/2012 - azide Félix Pedroza, 12/07/2013 320-25mg Tablets FACMaren, MARQUIS Atorvastatin Calcium 1 by mouth 90tabs Rob Stuart 09/29/2012 - 80mg every day Félix Pedroza, 02/25/2015 Tablets FACMaren, MARQUIS Potassium Chloride ER 2 tabs by 180tabs Rob Stuart 09/29/2012 - 20Meq mouth every Félix Pedroza, 04/09/2014 Tablets ER day BALJIT, MARQUIS Lipitor 1 po hs 90tabs Rob Stuart 06/05/2012 - 40mg Tablets Félix Pedroza, 09/29/2012 FACMaren, MARQUIS Potassium Bitartrate 2 by mouth Unknown - Powder every day 04/09/2014 Vitamin D 1 cap po 12caps Unknown - (Ergocalciferol) monthly 01/10/2017 07242Spui Capsules Benadryl Allergy 1 po daily Unknown - 25mg 03/31/2017 Capsules Gabapentin 1 by mouth in Unknown - 300mg Capsules the pm 02/14/2018 Medications Administered in Office Medication SIG Qnty Indications Ordering Provider Date Synvisc Or Synvisc-One Vida Fuentes M.D. 04/06/2016 Injection 1 MG Injection Synvisc Or Synvisc-One Vida Fuentes M.D. 03/30/2016 Injection 1 MG Injection Synvisc Or Synvisc-One Vida Fuentes M.D. 03/23/2016 Injection 1 MG Injection Inj, Regadenoson, 0.1 MG Ica Nuclear Schedule 12/08/2015 Injection Technetium TC 99M Ica Nuclear Schedule 12/08/2015 Tetrofosmin, Per Unit Dose Up To 40 Millicuries Injection Inj, Regadenoson, 0.1 MG Leoncio Nicolas M.D. 12/07/2015 Injection Technetium TC 99M Leoncio Nicolas M.D. 12/07/2015 Tetrofosmin, Per Unit Dose Up To 40 Millicuries Injection Technetium TC 99M Sathya Alvarenga DO [facility] 12/07/2015 Tetrofosmin, Per Unit Dose Up To 40 Millicuries Injection Triamcinolone (Kenalog) Levy Sapp MD 08/26/2015 Injection Vital Signs Date Vital Result Comment 11/26/2018 8:28am Height 62 inches 5'2" Weight 224.00 lb Heart Rate 69 /min BP Systolic 130 mmHg BP Diastolic 86 mmHg BMI (Body Mass Index) 41.0 kg/m2 08/20/2018 1:14pm Weight 226.00 lb Heart Rate 62 /min BP Systolic Sitting 140 mmHg BP Diastolic Sitting 74 mmHg Respiratory Rate 16 /min Pain Level 3 O2 % BldC Oximetry 98 % 06/11/2018 1:04pm Height 62 inches 5'2" Weight 231.00 lb Heart Rate 65 /min BP Systolic Sitting 125 mmHg LA lg cuff BP Diastolic Sitting 80 mmHg LA lg cuff Respiratory Rate 18 /min BMI (Body Mass Index) 42.2 kg/m2 03/31/2018 2:37pm Height 62.5 inches 5'2.50" Weight 231.00 lb Heart Rate 88 /min BP Systolic Sitting 130 mmHg BP Diastolic Sitting 88 mmHg BMI (Body Mass Index) 41.6 kg/m2 02/14/2018 11:12am Height 62.5 inches 5'2.50" Weight 238.38 lb Heart Rate 63 /min BP Systolic 110 mmHg BP Diastolic 68 mmHg BMI (Body Mass Index) 42.9 kg/m2 09/11/2017 1:46pm Height 62.5 inches 5'2.50" Weight 236.50 lb Heart Rate 68 /min BP Systolic 132 mmHg BP Diastolic 82 mmHg BMI (Body Mass Index) 42.6 kg/m2 02/04/2017 1:26pm Height 62.5 inches 5'2.50" Weight 234.38 lb Heart Rate 80 /min BP Systolic 126 mmHg BP Diastolic 78 mmHg BMI (Body Mass Index) 42.2 kg/m2 01/11/2017 1:36pm Height 62.5 inches 5'2.50" Weight 241.00 lb Heart Rate 64 /min BP Systolic Sitting 166 mmHg LA Regular Cuff BP Diastolic Sitting 100 mmHg LA Regular Cuff BP Systolic Standing 158 mmHg LA Regular Cuff BP Diastolic Standing 88 mmHg LA Regular Cuff Respiratory Rate 16 /min Pain Level 0 O2 % BldC Oximetry 98 % BMI (Body Mass Index) 43.4 kg/m2 08/06/2016 3:47pm Height 62.5 inches 5'2.50" Weight 241.00 lb Heart Rate 78 /min BP Systolic Sitting 122 mmHg BP Diastolic Sitting 88 mmHg BMI (Body Mass Index) 43.4 kg/m2 04/25/2016 2:48pm Height 62.5 inches 5'2.50" Weight 246.00 lb Heart Rate 76 /min BP Systolic Sitting 128 mmHg BP Diastolic Sitting 80 mmHg BMI (Body Mass Index) 44.3 kg/m2 04/06/2016 3:07pm Height 62.5 inches 5'2.50" Weight 245.00 lb Respiratory Rate 16 /min Pain Level 3 BMI (Body Mass Index) 44.1 kg/m2 03/30/2016 3:05pm Height 62.5 inches 5'2.50" Weight 245.00 lb Respiratory Rate 16 /min Pain Level 3 BMI (Body Mass Index) 44.1 kg/m2 03/23/2016 2:55pm Height 62.5 inches 5'2.50" Heart Rate 76 /min Pain Level 4 02/17/2016 2:12pm Height 62.5 inches 5'2.50" Weight 246.00 lb BMI (Body Mass Index) 44.3 kg/m2 01/18/2016 7:53am Height 62.5 inches 5'2.50" Weight 246.00 lb Body Temperature 97.3 F BMI (Body Mass Index) 44.3 kg/m2 01/04/2016 7:57am Height 62.5 inches 5'2.50" Weight 246.00 lb Heart Rate 65 /min BP Systolic 157 mmHg BP Diastolic 80 mmHg BMI (Body Mass Index) 44.3 kg/m2 12/30/2015 1:58pm Height 62.5 inches 5'2.50" Weight 246.00 lb Heart Rate 60 /min BP Systolic Sitting 136 mmHg LA large cuff BP Diastolic Sitting 88 mmHg LA large cuff BP Systolic Standing 130 mmHg LA BP Diastolic Standing 80 mmHg LA Respiratory Rate 14 /min BMI (Body Mass Index) 44.3 kg/m2 Ejection Fraction 50-55% 12/15/15 11/25/2015 10:36am Weight 242.00 lb Heart Rate 72 /min BP Systolic Sitting 148 mmHg LA reg cuff BP Diastolic Sitting 92 mmHg LA reg cuff BP Systolic Standing 146 mmHg BP Diastolic Standing 90 mmHg Respiratory Rate 16 /min Ejection Fraction 60% 05/22/14 10/24/2015 2:12pm Height 62 inches 5'2" Weight 220.00 lb Heart Rate 88 /min BP Systolic 138 mmHg BP Diastolic 90 mmHg BMI (Body Mass Index) 40.2 kg/m2 10/07/2015 3:05pm Height 62 inches 5'2" Heart Rate 88 /min BP Systolic Sitting 130 mmHg BP Diastolic Sitting 96 mmHg 08/26/2015 2:25pm Height 62 inches 5'2" Weight 235.00 lb Pain Level 5 BMI (Body Mass Index) 43.0 kg/m2 07/08/2015 1:56pm Height 62 inches 5'2" Weight 235.00 lb Heart Rate 60 /min BP Systolic Sitting 130 mmHg BP Diastolic Sitting 84 mmHg Pain Level 5 goes higher at times.. BMI (Body Mass Index) 43.0 kg/m2 06/24/2015 8:29am Height 62 inches 5'2" Weight 235.00 lb Heart Rate 72 /min BP Systolic Sitting 140 mmHg BP Diastolic Sitting 96 mmHg Pain Level 7 BMI (Body Mass Index) 43.0 kg/m2 04/27/2015 1:29pm Height 62 inches 5'2" Weight 240.00 lb w/o shoes Heart Rate 62 /min reg BP Systolic Sitting 126 mmHg Rue, lg cuff BP Diastolic Sitting 78 mmHg Rue, lg cuff BP Systolic Standing 124 mmHg Rue BP Diastolic Standing 72 mmHg Rue Respiratory Rate 18 /min BMI (Body Mass Index) 43.9 kg/m2 Ejection Fraction 60% as of 05/22/14 echo 04/12/2014 10:28am Height 62 inches 5'2" Weight 231.00 lb with shoes Heart Rate 66 /min BP Systolic Sitting 120 mmHg Ra lg cuff BP Diastolic Sitting 60 mmHg Ra lg cuff BP Systolic Standing 120 mmHg Ra lg cuff BP Diastolic Standing 66 mmHg Ra lg cuff Respiratory Rate 16 /min BMI (Body Mass Index) 42.2 kg/m2 Results Test Date Facility Test Result H/L Range Note FLP/Alt Panel 06/20/2018 [facility] Alt 5 U/L Low 7-[address] [place] [address] [phone] Lipid Profile 06/20/2018 [facility] Triglycerides 128 mg/dL 2 (Trig/Chol/HDL) [address] [place] [address] [phone] Cholesterol 126 mg/dL 3 HDL Cholesterol 39.6 mg/dL 4 LDL Cholesterol 61 mg/dL 5 Laboratory test 04/28/2016 [facility] TSH (Thyroid 0.81 mcIU/mL N 0.34-5.60 [address] Stim [place]) [place] [address] [phone] Vitamin B12 74 pg/mL Low 180-914 7 Folic Acid (Folate) > 20.00 ng/mL N >3.99 8 Laboratory test 01/05/2016 [facility] Point of Care 101 mg/dL N 74-106 9 finding [address] [facility] [place] [address] [phone] Laboratory test 01/05/2016 [facility] Point of Care 100 mg/dL N 74-106 10 finding 101 [facility] [place] [address] [phone] Laboratory test 03/25/2013 [facility] Magnesium 1.4 mg/dL Low 1.7-2.6 11 finding [address] [place] [address] [phone] Basic Metabolic 03/25/2013 [facility] Sodium 139 mmol/L 133- 145 Panel [address] [place] [address] [phone] Potassium 3.6 mmol/L 3.5-5.0 Chloride 103 mmol/L 101-111 Co2 Carbon Dioxide 28.0 mmol/L 22-32 Anion Gap 8.0 mmol/L 2-11 Glucose 267 mg/dL High 70-100 Blood Urea Nitrogen 16 mg/dL 6-24 Creatinine 1.00 mg/dL 0.50-1.40 BUN/Creatinine Ratio 16.0 8-20 Calcium 9.2 mg/dL 8.1-9.9 Egfr Non- 56.0 >60 Egfr 72.0 >60 12 1 FASTING 12 HOUR 2 Desirable: <150 Borderline High: 150-199 High: 200-499 Very High: >500 3 Desirable: <200 Borderline High: 200-239 High: >239 4 Low: <40 Desirable: 40-60 High: >60 5 Desirable: <100 Near Optimal: 100-129 Borderline High: 130-159 High: 160-189 Very High: >189 6 Copy Result to: [facility] ([id number]) 7 Normal Range 180 to 914 Indeterminate Range 145 to 180 Deficient Range <145 8 Copy Result to: [facility] ([id number]) 9 Manager Style: [id number] KIM MURILLO 10 Manager Style: [id number] HANS ZAZUETA 11 Triage attached to old triage from January regarding these labs. KN 12 Because ethnic data is not always readily [...] Kidney failure <15 (or dialysis) Procedures Date Code Description Status 06/11/2018 03534 EKG Tracing & Interpretation Completed 01/11/2017 16219 EKG Tracing & Interpretation Completed 12/14/2016 72096 ECHO Transthoracic, Real-Time 2D With Doppler And Color Completed Flow 07/31/2016 16297 Nerve Conduction 05-06 Studies Completed 07/31/2016 71059 Needle Electromyography Complete, Five Or More Muscles Completed Studied 04/06/201606488 Inject/Drain Joint/Bursa Major W/O US Completed 03/30/2016 51119 Inject/Drain Joint/Bursa Major W/O US Completed 03/23/201687812 Inject/Drain Joint/Bursa Major W/O US Completed 01/05/2016 09092 Arthroscopy,Knee,Meniscectomy Medial Or Lateral Completed 01/05/2016 57975 Arthroscopy,Knee,Meniscectomy Medial Or Lateral Completed 01/05/2016 17250 Arthroscopy,Knee,Meniscectomy Medial Or Lateral Completed 01/05/2016 91296 Arthroscopy,Knee,Meniscectomy Medial Or Lateral Completed 12/15/2015 28386 ECHO Transthoracic, Real-Time 2D With Doppler And Color Completed Flow 12/08/2015 06777 Myocardial Perfusion Imaging Tomographic (Spect) Multiple Completed Studies 12/07/2015 90762 Stress Test Completed 12/07/2015 81725 Myocardial Perfusion Imaging Tomographic (Spect) Multiple Completed Studies 08/26/2015 07883 Inject/Drain Joint/Bursa Major W/O US Completed 08/26/2015 53290 Inject/Drain Joint/Bursa Major W/O US Completed 04/27/2015 92758 EKG Tracing & Interpretation Completed 04/18/2015 84184 Carotid Doppler,Bilateral Completed 03/22/2014 47021 ECHO Transthoracic, Real-Time 2D With Doppler And Color Completed Flow 03/16/2014 14489 Carotid Doppler,Bilateral Completed 05/31/2010 12457 Rad Exam; Wrist Limited, 2 Views Completed 05/19/2010 58166 Rad Exam; Wrist, Comp, Min 3 Views Completed 05/19/2010 53326 Rad Exam; Wrist Limited, 2 Views Completed 05/03/2010 66406 Short Arm Cast Application Completed 09/26/2006 96331 EKG, Interpretation Only Completed 09/26/2006 59100 EKG, Interpretation Only Completed 09/26/2006 61433 Left Heart Catheterization Completed 09/26/2006 31786 Coronary Angiography Completed 09/26/2006 18878 Coronary Angiography Completed 09/26/2006 81934 S/I/R Inj Proc Vent And Or Atrial Completed 09/26/2006 10023 Selective Coronary Angioplasty Completed 09/26/2006 44860 Selective Coronary Angioplasty Completed 09/24/2006 34275 Color Flow Doppler/Interp & Reprt Completed 09/24/2006 36677 Color Flow Doppler/Interp & Reprt Completed 09/24/2006 48272 Pulse Wave/Continuous-Interp.RPT Completed 09/24/2006 62867 Echocardiogram Completed 09/24/2006 17736 Echocardiogram Completed Encounters Type Date Location Provider Dx Diagnosis Office Visit 08/20/2018 [facility]Ameya Nogueira, G20 Parkinson's 1:00p Neurologic Serv Of Félix disease Cotton Tipper M54.5 Low back pain R26.89 Other abnormalities of gait and mobility G62.9 Polyneuropathy, unspecified Office Visit 06/11/2018 1:30p [facility] Rob Narciso I25.10 Ath[facility] heart Of [place] Pedroza M.D., disease of FACC, FASNC [place] coronary artery w/o ang pctrs I10 Essential (primary) hypertension Office Visit 04/09/2018 8:54a [facility] Oswald Garcia, S22.068A Oth fracture of jessica Tristan MD T7-T8 thoracic Hospitalists vertebra, init for clos fx E11.9 Type 2 diabetes mellitus without complications I10 Essential (primary) hypertension G20 Parkinson's disease E11.40 Type 2 diabetes mellitus with diabetic neuropathy, unsp Z79.4 longterm (current) use of insulin Office Visit 04/08/2018 8:54a [facility] Oswald Garcia, S22.068A Oth fracture of jessica Tristan MD T7-T8 thoracic Hospitalists vertebra, init for clos fx E11.9 Type 2 diabetes mellitus without complications G20 Parkinson's disease I10 Essential (primary) hypertension [facility] 8:53a jessica Tristan M.D. of T7-T8 Hospitalists thoracic vertebra, init for clos fx G20 Parkinson's disease E11.9 Type 2 diabetes mellitus without complications Z79.4 longterm (current) use of insulin [facility] Oth fracture 8:51a jessica Tristan M.D. of T7-T8 Hospitalists thoracic vertebra, init for clos fx E11.9 Type 2 diabetes mellitus without complications I10 Essential (primary) hypertension E78.5 Hyperlipidemia, unspecified F32.9 Major depressive disorder, single episode, unspecified G20 Parkinson's disease Office Visit 04/05/2018 8:50a [facility] Kelsey Sarmiento, S22.068A Oth fracture of jessica Tristan N.PCiro T7-T8 thoracic Hospitalists vertebra, init for clos fx G20 Parkinson's disease I10 Essential (primary) hypertension E11.9 Type 2 diabetes mellitus without complications Office Visit 04/05/2018 Neurosurgery Yoni Lanza, S22.068A Oth fracture of 3:52p Services Of [facility] Heard T7-T8 thoracic vertebra, init for clos fx Office Visit 04/04/2018 Neurosurgery Vassilios S22.068A Oth fracture of 7:00a Services Of Marin Caruso MD T7-T8 thoracic vertebra, init for clos fx Office Visit 04/03/2018 [facility] S22.068A Oth fracture of 8:43a jessica Tristan, T7-T8 thoracic Hospitalists MBenedicto vertebra, init for clos fx G20 Parkinson's disease M54.5 Low back pain F41.9 Anxiety disorder, unspecified E11.9 Type 2 diabetes mellitus without complications I10 Essential (primary) hypertension W19.xxxA Unspecified fall, initial encounter Office Visit 03/31/2018 Neurohospitalist Rashid Andrade, G20 Parkinson's 2:30p Clinic disease E11.42 Type 2 diabetes mellitus with diabetic polyneuropathy R26.89 Other abnormalities of gait and mobility R29.6 Repeated falls Office Visit 02/14/2018 Neurohospitalist Rashid G47.00 Insomnia, 11:00a Clinic MD Lupe unspecified D51.9 Vitamin B12 deficiency anemia, unspecified G20 Parkinson's disease G25.81 Restless legs syndrome E11.42 Type 2 diabetes mellitus with diabetic polyneuropathy Office Visit 09/11/2017 Neurohospital[facility] Rashid Andrade, G20 Parkinson's 1:45p Clinic disease G47.00 Insomnia, unspecified Office Visit 02/04/2017 Neurohospitalist Rashid Andrade, G20 Parkinson's 1:45p Clinic disease E11.42 Type 2 diabetes mellitus with diabetic polyneuropathy Office Visit 01/11/2017 2:00p Cardiology Services Of Rob Sutart I25.10 Athsc heart [place] AT [place] Pedroza M.D., disease of FACC, FASNC [place] coronary artery w/o ang pctrs Office Visit 08/06/2016 4:00p Neurohospitalist Rashid G20 Parkinson's Clinic MD Lupe disease E11.42 Type 2 diabetes mellitus with diabetic polyneuropathy D51.9 Vitamin B12 deficiency anemia, unspecified Office 04/25/2016 Neurohospitalist Rashid E11.42 Type 2 diabetes Visit 3:00p Clinic MD Lupe mellitus with diabetic polyneuropathy R25.1 Tremor, unspecified R26.9 Unspecified abnormalities of gait and mobility Office Visit 12/30/2015 1:45p Cardiology Rob Stuart I25.10 Athscl heart Services Of [place] Pedroza M.D., disease of AT [facility], FASNC [place] coronary artery w/o ang pctrs Office Visit 11/25/2015 10:45a Cardiology Rob Stuart I25.10 Athscl heart Services Of [place] Pedroza M.D., disease of AT [facility], FASNC [place] coronary artery w/o ang pctrs Office Visit 10/24/2015 2:00p Orthopedic Vida Fuentes, S83.231A Complex tear of Services Of Félix browning, C.M.ACiro current injury, r knee, init M25.561 Pain in right knee M25.461 Effusion, right knee M17.11 Unilateral primary osteoarthritis, right knee Office Visit 10/07/2015 3:00p Orthopedic Levy Sapp, S83.231A Complex tear Services Of [facility] AT [facility], current injury, r knee, init Office Visit 08/26/2015 2:30p Orthopedic Levy Sapp, S83.231A Complex tear Services Of [facility] AT [place] [facility], current injury, r knee, init S83.231A Complex tear of medial mensc, current injury, r knee, init S83.231A Complex tear of medial mensc, current injury, r knee, init Office Visit 07/08/2015 2:00p Orthopedic Levy Sapp, S83.231A Complex tear Services [facility] [place] AT [place] [facility], current injury, r knee, init M54.16 Radiculopathy, lumbar region M54.5 Low back pain S63.502A Unspecified sprain of left wrist, initial encounter S83.231D Complex tear of medial mensc, current injury, r knee, subs S83.231A Complex tear of medial mensc, current injury, r knee, init Office Visit 06/24/2015 8:00a Orthopedic Levy Sapp, S80.01xA Contusion of Services Of [facility] right knee, AT [place] initial encounter M54.16 Radiculopathy, lumbar region M54.5 Low back pain S63.502A Unspecified sprain of left wrist, initial encounter Office Visit 04/27/2015 1:30p [facility] Rob Stuart I25.10 Athscl heart Of [place] Pedroza M.D., disease of FACC, FASNC [place] coronary artery w/o ang pctrs Office Visit 04/12/2014 10:30a [facility] Rob Stuart 414.9 Ischemic Heart Of [place] Pedroza M.D., Disease Chronic FACC, FASNC Unspec Office Visit 12/12/2012 2:45p [facility] Rob Stuart 414.9 Ischemic Heart Of [place] Pedroza M.D., Disease Chronic FACC, FASNC Unspec Office Visit 05/31/2010 9:30a [facility] Toño Briggs, 813.42 FX Radius of Cotton Tipper M.D. (Alone) Distal End Other Closed Office Visit 05/19/2010 8:30a [employer] [place]gs, [phone] [employer] M.D. (Alone) Distal End Other Closed Office Visit 05/03/2010 1:30p [employer] [place]ño [place]gs, [phone] [employer] M.D. (Alone) Distal End Other Closed Plan of Treatment Future Appointment(s):04/08/2019 8:30 am - Randy Nogueira M.D. at [place]11/26/2018 - Randy Nogueira M.D.G20 Parkinson's diseaseNew Medication:Carbidopa-Levodopa 25-100 mg - 2 pills three times a day, 30 min prior to mealsCarbidopa-Levodopa ER 50-200 mg - 1 by mouth at bedtimeFollow up:3 emtttrP95.5 Low back painG62.9 Polyneuropathy, [id number] Other abnormalities of gait and mobility
[2018-12-09 12:47] VITALS: BP 130/69
--- NOTE | 2018-12-09 13:38 | UC ---
Hip/Pelvis Pain - HPI Summary HPI Summary: right hip pain x 1 day. pain is sever, 10 out of 10 , cannot bear weight pain is worse with standing , better with rest, no known injury - History Of Current Complaint Chief Complaint: UCLowerExtremity Stated Complaint: NOT ABLE TO WALK Time Seen by Provider: 12/09/18 12:50 Hx Obtained From: Patient Onset/Duration: Gradual Onset, Lasting Days - 1, Still Present Severity Initially: Severe Severity Currently: Severe Pain Intensity: 10 Pain Scale Used: 0-10 Numeric Location: Discrete At: - right hip Character Of Pain: Sharp Aggravating Factor(s): Movement, Weight Bearing Alleviating Factor(s): Rest Associated Signs And Symptoms: Negative: Swelling, Redness, Bruising, Fever, Weakness, Dizziness, Syncope, Abdominal Pain, Knee Pain - Allergies/Home Medications Allergies/Adverse Reactions: Allergies Allergy/AdvReac Type Severity Reaction Status Date / Time No Known Allergies Allergy Verified 12/09/18 12:34 Home Medications: Home Medications Insulin Glulisine [Apidra] unit IJ 12/09/18 [History] PMH/Surg Hx/FS Hx/Imm Hx - Additional Past Medical History Additional PMH: PARKINSON'S SPINAL STENOSIS FRACTURE BACK Endocrine History: Diabetes Cardiovascular History: Cardiac Disease, Hypertension - Surgical History Surgical History: Yes Surgery Procedure, Year, and Place: GALLBLADDER; CARDIAC STENTS x2, LEFT BREAST TERMINAL [place] @ [facility] [place]; RT KNEE SCOPE FOR MENISCUS REPair - Family History Known Family History: Negative: Cardiac Disease, Hypertension, Diabetes - Social History Alcohol Use: None Substance Use Type: None Smoking Status (MU): Never Smoked Tobacco Have You Smoked in the Last Year: No - Immunization History Most Recent Influenza Vaccination: feb 2018 per patient Most Recent Pneumonia Vaccination: 04/04/18 Review of Systems All Other Systems Reviewed And Are Negative: Yes Constitutional: Positive: Negative Skin: Positive: Negative Eyes: Positive: Negative ENT: Positive: Negative Is Patient Immunocompromised?: No Physical Exam Triage Information Reviewed: Yes Appearance: Pain Distress, Obese Vital Signs: Initial Vital Signs Temp 98 F 12/09/18 12:39 Pulse 101 12/09/18 12:39 Resp 18 12/09/18 12:39 BP 130/69 12/09/18 12:39 Pulse Ox 100 12/09/18 12:39 Vital Signs Reviewed: Yes Eye Exam: Normal Eyes: Positive: Conjunctiva Clear ENT: Positive: Normal ENT inspection, Hearing grossly normal, Pharynx normal Neck: Positive: Supple, Nontender, No Lymphadenopathy Respiratory: Positive: Chest non-tender, Lungs clear, Normal breath sounds Cardiovascular: Positive: RRR, No Murmur, Pulses Normal Abdomen Description: Positive: Nontender, Soft. Negative: CVA Tenderness (R), CVA Tenderness (L), Distended, Guarding Bowel Sounds: Positive: Present Musculoskeletal: Positive: Other: - right hip: no swelling, no erythema, no rash , + diffuse tenderness, limited rom on flexion cannot bear weight Skin: Negative: Rashes Hip Injury Course/Dx - Differential Dx/Diagnosis Provider Diagnosis: Right hip pain Discharge - Sign-Out/Discharge Documenting (check all that apply): Patient Departure All imaging exams completed and their final reports reviewed: No Studies - Discharge Plan Condition: Stable Disposition: TRANS HIGHER LVL OF CARE FAC Patient Education Materials: Hip Pain (ED) Referrals: Joanne Suggs MD [Primary Care Provider] - Additional Instructions: right hip pain cannot walk due to severe pain of the right hip please go to [facility] ED for evaluation and tx - Billing Disposition and Condition Condition: STABLE Disposition: Trans Higher Lvl of Care Fac
== END 2018-12-09 13:07 | disposition short-term general hospital (02) ==
LOC: UCCORT 12:27
DX: M25.551 Pain in right hip (principal); E11.9 Type 2 diabetes mellitus without complications; Z79.4 Long term (current) use of insulin; I10 Essential (primary) hypertension; G20 Parkinson's disease
CPT/HCPCS: 99212; G0463

== ENCOUNTER 2024-02-17 17:16 | Observation (INO) ==
[2024-02-17 17:53] LABS: ABS Eosinophils 0.2 10^3/uL (0.0-0.5); ABS Lymphocytes 0.4 10^3/uL (1.0-4.8); ABS Monocytes 0.4 10^3/uL (0.0-0.9); ABS Neutrophils 4.5 10^3/uL (1.5-7.6); Eosinophil % 2.8 %; Hematocrit 31.9 % (35-45); Hemoglobin 10.1 g/dL (11.5-14.3); Lymphocyte % 7.1 %; Mean Corpuscular Hemoglobin 24.2 pg (27-33); Mean Corpuscular Hgb Conc 31.7 g/dL (31-36); Mean Corpuscular Volume 76.3 fL (80-97); Mean Platelet Volume 7.3 fL (7.5-11.2); Nucleated Red Blood Cells % 0.1 %/100WBC (0.0-0.8); Platelet Count 139 10^3/uL (150-450); Red Blood Count 4.17 10^6/uL (3.63-4.92); Red Cell Distribution Width 18.1 % (12-17); White Blood Count 5.5 10^3/uL (3.8-11.8)
[2024-02-17 18:18] LABS: High Sens Troponin Baseline 9 pg/mL (<15)
[2024-02-17 18:20] LABS: Anion Gap 5 mmol/L (2-16); Blood Urea Nitrogen 11 mg/dL (6-24); CO2 Carbon Dioxide 25 mmol/L (22-32); Calcium 7.2 mg/dL (8.6-10.3); Chloride 113 mmol/L (101-111); Creatinine, Serum 0.63 mg/dL (0.51-0.95); Glucose 60 mg/dL (70-100); Potassium 3.1 mmol/L (3.5-5.0); Sodium 143 mmol/L (135-145)
[2024-02-17 18:32] LABS: TSH Ultra Thyroid Stim Horm 0.36 mcIU/mL (0.34-5.60)
[2024-02-17 18:39] LABS: ALT < 3 U/L (7-52); AST 16 U/L (13-39); Albumin 2.9 g/dL (3.2-5.2); Albumin/Globulin Ratio 1.5 (1-3); Alkaline Phosphatase 71 U/L (35-149); Creatine Kinase 128 U/L (10-223); Magnesium 1.3 mg/dL (1.9-2.7); Total Bilirubin 0.5 mg/dL (0.2-1.0); Total Protein 4.9 g/dL (6.4-8.9)
[2024-02-17] MEDS: Acetaminophen IV 1 GM/100ML 1,000 MG/100 ML BAG IV ONE (19:09)
[2024-02-17] MEDS: Calcium Carb (TUMS) 500 mg CHEW TAB PO ONE (19:09)
[2024-02-17] MEDS: Potassium Chlor 20 meq TAB.ER PO ONE (19:09)
[2024-02-17 19:27] LABS: High Sensitivity Troponin 1 Hr 10 pg/mL (<15)
[2024-02-17] MEDS: Dextrose 50% Syringe 50 ml 25 GM/50 ML SYRINGE IV PUSH ONE (22:26)
[2024-02-17] MEDS: Iodixanol (CONTRAST) 320 MG/ML 100 ML SDV IV ONE (22:44)
[2024-02-17 23:50] LABS: Urine Appearance Clear; Urine Bilirubin Negative (Negative); Urine Blood Negative (Negative); Urine Color Light-Yellow; Urine Glucose Negative (Negative); Urine Ketones Negative (Negative); Urine Nitrite Negative (Negative); Urine Protein Negative (Negative); Urine Specific Gravity 1.016 (1.002-1.030); Urine Urobilinogen Negative (Negative); Urine pH 6.5 (5.0-8.0)
[2024-02-18] MEDS: Carbidopa/Levodop 25/100 MG TAB PO ONE (00:03)
[2024-02-18] MEDS: Magnesium Sulf 4 GM/100 ML IV 4,000 MG/100 ML BAG IVPB ONE (05:52)
[2024-02-18] MEDS: Potassium Chlor 20 meq TAB.ER PO ONE (05:53)
[2024-02-18] MEDS: Enoxaparin 40 MG/0.4 ML SYR SUBCUT SCH (06:03)
[2024-02-18 06:22] LABS: Hematocrit 29.5 % (35-45); Hemoglobin 9.7 g/dL (11.5-14.3); Mean Corpuscular Hemoglobin 24.6 pg (27-33); Mean Corpuscular Hgb Conc 32.7 g/dL (31-36); Mean Corpuscular Volume 75.3 fL (80-97); Mean Platelet Volume 7.4 fL (7.5-11.2); Platelet Count 134 10^3/uL (150-450); Red Blood Count 3.92 10^6/uL (3.63-4.92); Red Cell Distribution Width 18.4 % (12-17); White Blood Count 4.7 10^3/uL (3.8-11.8)
[2024-02-18 06:37] LABS: Anion Gap 8 mmol/L (2-16); Blood Urea Nitrogen 12 mg/dL (6-24); CO2 Carbon Dioxide 27 mmol/L (22-32); Calcium 8.6 mg/dL (8.6-10.3); Chloride 106 mmol/L (101-111); Creatinine, Serum 0.88 mg/dL (0.51-0.95); Glucose 71 mg/dL (70-100); Sodium 141 mmol/L (135-145); eGFR CKD-EPI 68.9 (>60)
[2024-02-18 06:39] LABS: ALT < 3 U/L (7-52); AST 18 U/L (13-39); Albumin 3.1 g/dL (3.2-5.2); Albumin/Globulin Ratio 1.4 (1-3); Alkaline Phosphatase 81 U/L (35-149); Globulin 2.2 g/dL (2-4); Magnesium 1.6 mg/dL (1.9-2.7); Total Bilirubin 0.4 mg/dL (0.2-1.0); Total Protein 5.3 g/dL (6.4-8.9)
[2024-02-18] MEDS: Carbidopa/Levodop 25/100 MG TAB PO SCH (09:12)
[2024-02-18] MEDS: DULoxetine DR 30 mg CAP PO SCH (09:13)
[2024-02-18] MEDS: Latanoprost 0.005% 2.5 ml BTL BOTH EYES SCH (09:13)
[2024-02-18] MEDS: Insulin GLARGINE 100 un/ml 10 ml VIAL SUBCUT SCH ×2 (10:13→10:46)
[2024-02-18] MEDS: Sulfur Hexaflouride MICROSPHR 25 MG VIAL IV PRN (13:19)
[2024-02-18] MEDS ORDERED: Sulfur Hexaflouride MICROSPHR 25 MG VIAL ONE (13:34)
[2024-02-18] MEDS: Carbidopa/Levodop CR 50/200 TAB.CR PO SCH (21:14)
[2024-02-19 05:17] LABS: ABS Eosinophils 0.2 10^3/uL (0.0-0.5); ABS Lymphocytes 0.6 10^3/uL (1.0-4.8); ABS Monocytes 0.4 10^3/uL (0.0-0.9); ABS Neutrophils 2.6 10^3/uL (1.5-7.6); Eosinophil % 5.3 %; Hematocrit 31.7 % (35-45); Hemoglobin 10.3 g/dL (11.5-14.3); Lymphocyte % 14.7 %; Mean Corpuscular Hemoglobin 24.7 pg (27-33); Mean Corpuscular Hgb Conc 32.4 g/dL (31-36); Mean Corpuscular Volume 76.3 fL (80-97); Mean Platelet Volume 7.4 fL (7.5-11.2); Platelet Count 141 10^3/uL (150-450); Red Blood Count 4.16 10^6/uL (3.63-4.92); Red Cell Distribution Width 18.5 % (12-17); White Blood Count 3.9 10^3/uL (3.8-11.8)
[2024-02-19] MEDS ORDERED: Iron Sucrose 20 MG/ML 5 ML VIAL IV PUSH ONE (08:34)
[2024-02-19 09:56] LABS: Ferritin 11.4 ng/mL (11-307)
[2024-02-19] MEDS: Ferric Gluconate IV 250 MG in NS 0.9% 250 ml 200 ML IVPB SCH (10:23)
[2024-02-19 18:19] VITALS: BP 129/66
== END 2024-02-19 19:00 | disposition home or self-care (01) ==
LOC: ED 17:16 → EDHOLD 17:16 → SUATTDRO 02-18 03:28 → MEDTELE 02-18 16:12
PROVIDERS: ADMIT Hospitalist; ATTEND Internal Medicine

== ENCOUNTER 2024-06-15 06:47 | Inpatient (IN) ==
[2024-06-15] MEDS ORDERED: ceFAZolin 2 GM PREMIX 2 GM/50 ML BAG ONE (07:11)
[2024-06-15] MEDS ORDERED: Famotidine IV 10 MG/ML 2 ml VIAL (20 mg) ONE (07:11)
[2024-06-15 07:47] LABS: Rapid COVID-19 Molecular Undetected (Undetected)
[2024-06-15] MEDS: Famotidine IV 10 MG/ML 2 ml VIAL (20 mg) IV ONE (07:59)
[2024-06-15] MEDS: Lactated Ringers 1000 ml BAG 1,000 ML IV SCH ×2 (07:59→16:31)
[2024-06-15] MEDS: Buffered Lidocaine 1% SYRIN 1 ml INTRADERM ONE (07:59)
[2024-06-15] MEDS ORDERED: fentaNYL 100 mcg/2 ml 50 MCG/ML VIAL ONE ×2 (08:32→13:14)
[2024-06-15] MEDS ORDERED: Rocuronium 50 mg VIAL 10 mg/ml 5 ml VIAL (50 mg) ONE ×2 (08:33→11:18)
[2024-06-15] MEDS ORDERED: Lidocaine 2% PF 5 ML VIAL ONE (08:33)
[2024-06-15] MEDS ORDERED: Propofol 10 MG/ML 20 ML BTL ONE (08:33)
[2024-06-15] MEDS ORDERED: Midazolam 2 mg/2 ml VIAL 1 mg/ml 2 ml VIAL (2 mg) ONE (08:33)
[2024-06-15] MEDS ORDERED: ceFAZolin VIAL VIAL ONE (09:06)
[2024-06-15] MEDS ORDERED: Lidocaine 1% w EPI 1:100,000 MDV 50 ML VIAL ONE (09:06)
[2024-06-15] MEDS ORDERED: fentaNYL 100 mcg/2 ml 50 MCG/ML VIAL IV PRN (09:30)
[2024-06-15] MEDS ORDERED: Naloxone 0.4 mg VIAL 0.4 mg/ml 1 ml VIAL IV PRN (09:30)
[2024-06-15 09:38] LABS: ABS Eosinophils 0.1 10^3/uL (0.0-0.5); ABS Lymphocytes 0.4 10^3/uL (1.0-4.8); ABS Monocytes 0.5 10^3/uL (0.0-0.9); ABS Neutrophils 3.9 10^3/uL (1.5-7.6); Eosinophil % 2.5 %; Hematocrit 33.2 % (35-45); Hemoglobin 11.6 g/dL (11.5-14.3); Lymphocyte % 8.5 %; Mean Corpuscular Hgb Conc 34.9 g/dL (31-36); Mean Corpuscular Volume 91.6 fL (80-97); Mean Platelet Volume 7.1 fL (7.5-11.2); Nucleated Red Blood Cells % 0.1 %/100WBC (0.0-0.8); Platelet Count 147 10^3/uL (150-450); Red Blood Count 3.62 10^6/uL (3.63-4.92); Red Cell Distribution Width 18.3 % (12-17); White Blood Count 4.9 10^3/uL (3.8-11.8)
[2024-06-15 09:58] LABS: Calcium 8.7 mg/dL (8.6-10.3); Creatinine, Serum 0.75 mg/dL (0.51-0.95); Potassium 3.4 mmol/L (3.5-5.0); eGFR CKD-EPI 83.5 (>60)
[2024-06-15] MEDS ORDERED: Glycopyrrolate IV 0.2 MG/ML 1 ML VIAL ONE (10:36)
[2024-06-15] MEDS ORDERED: Ondansetron 4 mg VIAL 2 MG/ML 2 ml VIAL ONE (12:05)
[2024-06-15] MEDS ORDERED: Senna TAB 8.6 mg TAB PO PRN (12:44)
[2024-06-15] MEDS ORDERED: Benzocaine/Menthol LOZ MT PRN (12:44)
[2024-06-15] MEDS ORDERED: Ondansetron 4 mg VIAL 2 MG/ML 2 ml VIAL IV PRN (12:44)
[2024-06-15] MEDS ORDERED: Calcium Carb (TUMS) 500 mg CHEW TAB PO PRN (12:44)
[2024-06-15] MEDS ORDERED: Dextran 70/Hypromellose Tears Eye Drops 15 ml BTL (for Artificials Tears) BOTH EYES PRN (12:44)
[2024-06-15] MEDS ORDERED: Phenol 1.4% Throat Spray BTL MT PRN (12:44)
[2024-06-15] MEDS ORDERED: HYDROcodone/ACETAMIN 5/325 mg TAB PO PRN (12:44)
[2024-06-15] MEDS ORDERED: Acetaminophen IV 1 GM/100ML 1,000 MG/100 ML BAG IV ONE (13:54)
[2024-06-15] MEDS: Carbidopa/Levodop CR 50/200 TAB.CR PO SCH ×2 (16:32→22:04)
[2024-06-15] MEDS: DULoxetine DR 30 mg CAP PO SCH (22:05)
[2024-06-15] MEDS: Latanoprost 0.005% 2.5 ml BTL BOTH EYES SCH (22:26)
[2024-06-16] MEDS: Morphine 2 MG/ML SYRINGE IV PRN (00:27)
[2024-06-16] MEDS: HYDROcodone/ACETAMIN 5/325 mg TAB PO PRN (02:46)
[2024-06-16] MEDS: Insulin GLARGINE 100 un/ml 10 ml VIAL SUBCUT SCH (08:52)
[2024-06-16 10:43] LABS: ABS Eosinophils 0.1 10^3/uL (0.0-0.5); ABS Lymphocytes 0.3 10^3/uL (1.0-4.8); ABS Monocytes 0.5 10^3/uL (0.0-0.9); ABS Neutrophils 6.1 10^3/uL (1.5-7.6); Eosinophil % 1.8 %; Hematocrit 34.3 % (35-45); Hemoglobin 11.5 g/dL (11.5-14.3); Lymphocyte % 3.9 %; Mean Corpuscular Hemoglobin 31.3 pg (27-33); Mean Corpuscular Hgb Conc 33.4 g/dL (31-36); Mean Corpuscular Volume 93.8 fL (80-97); Mean Platelet Volume 7.4 fL (7.5-11.2); Platelet Count 180 10^3/uL (150-450); Red Blood Count 3.66 10^6/uL (3.63-4.92); Red Cell Distribution Width 18.5 % (12-17); White Blood Count 7.1 10^3/uL (3.8-11.8)
[2024-06-16 11:00] LABS: Calcium 8.4 mg/dL (8.6-10.3); Creatinine, Serum 0.73 mg/dL (0.51-0.95); Potassium 3.9 mmol/L (3.5-5.0); eGFR CKD-EPI 86.2 (>60)
[2024-06-17 13:21] LABS: Hematocrit 29.4 % (35-45)
[2024-06-17 13:57] LABS: Creatinine, Serum 0.77 mg/dL (0.51-0.95); eGFR CKD-EPI 80.9 (>60)
[2024-06-18] MEDS: Lactated Ringers 1000 ml BAG 1,000 ML IV ONE (09:23)
[2024-06-18 09:37] LABS: ABS Eosinophils 0.2 10^3/uL (0.0-0.5); ABS Lymphocytes 0.6 10^3/uL (1.0-4.8); ABS Monocytes 0.7 10^3/uL (0.0-0.9); ABS Neutrophils 6.9 10^3/uL (1.5-7.6); Eosinophil % 2.4 %; Hematocrit 31.9 % (35-45); Hemoglobin 10.8 g/dL (11.5-14.3); Lymphocyte % 7.2 %; Mean Corpuscular Hemoglobin 31.7 pg (27-33); Mean Corpuscular Volume 93.4 fL (80-97); Mean Platelet Volume 7.7 fL (7.5-11.2); Platelet Count 212 10^3/uL (150-450); Red Blood Count 3.42 10^6/uL (3.63-4.92); Red Cell Distribution Width 18.3 % (12-17); White Blood Count 8.5 10^3/uL (3.8-11.8)
[2024-06-18 09:52] LABS: Calcium 8.2 mg/dL (8.6-10.3); Creatinine, Serum 0.77 mg/dL (0.51-0.95); Magnesium 1.5 mg/dL (1.9-2.7); Potassium 4.1 mmol/L (3.5-5.0); eGFR CKD-EPI 80.9 (>60)
[2024-06-18] MEDS: Iodixanol 320 (CONTRAST) 100 ML SDV IV ONE (10:58)
[2024-06-18] MEDS: Magnesium Sulfate 2 gm BAG 2 GM/50 ML BAG IVPB ONE (13:04)
[2024-06-18] MEDS: Lactated Ringers 1000 ml BAG 1,000 ML IV SCH (13:34)
[2024-06-18] MEDS: Magnesium Sulfate IV 1GM/100ML 1 GM/100 ML BAG IV ONE (15:25)
[2024-06-19] MEDS ORDERED: Insulin GLARGINE 100 un/ml 10 ml VIAL SUBCUT SCH (09:00)
[2024-06-19] MEDS: Lactated Ringers 1000 ml BAG 1,000 ML IV ONE (10:26)
[2024-06-19] MEDS: Polyethylene Glycol 3350 17 GM PACKET PO SCH (11:04)
[2024-06-22 12:06] LABS: Rapid COVID-19 Molecular Undetected (Undetected)
[2024-06-22] MEDS ORDERED: HYDROcodone/ACETAMIN 5/325 mg TAB PO PRN (19:18)
[2024-06-22] MEDS: HYDROcodone/ACETAMIN 5/325 mg TAB PO PRN (22:23)
[2024-06-23 05:58] VITALS: BP 113/59
== END 2024-06-23 10:20 | DRG 517 ==
LOC: OR 06:47 → MED 06:47 → SSU 06-16 07:39
PROVIDERS: ADMIT Neurological Surgery; ATTEND Neurological Surgery